=== PATIENT | male | born 1950 | race Caucasian/White ===

== ENCOUNTER 2017-03-12 15:00 | Emergency (ER) | payer OTHER ==
[~2017-03-12] VITALS: Ht 172.7 cm; Wt 62.0 kg
[2017-03-12 15:02] VITALS: BP 145/84; PULSE 98; RESP 18; TEMP 98.2; O2SAT 99
--- NOTE | 2017-03-12 15:54 | PD ---
Physical Exam Date Seen by Provider: March 12, 2017 Time Seen by Provider: 15:49 Narrative 66 Y/O male with progressively worsening Chest pain and difficulty swallowing as well as increased fatigue and exertional dyspnea. 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 + Shakes if not drinking. Patient having more difficulty swallowing with occasional food bolus regurgitation over the past several months. Increased heart burn and clear mucus production as well. 20 lb weight loss in the past 4 months according to . No fever or Chills. No Vomiting. V/S Stable Awaiting Bed Placement. Data Data Last Documented VS Vital Signs Date Time Temp Pulse Resp B/P Pulse Ox O2 Delivery O2 Flow Rate FiO2 03/12/17 15:02 98.2 98 18 145/84 99 MDM Medical Record Reviewed: Yes Supervised Visit with ISIAH: Yes Condition: Stable [place] March 12, 2017 15:54
[2017-03-12] MEDS ORDERED: SODIUM CHLORIDE 0.9% FLUSH 10 ML FLUSH IVF PRN (16:15)
--- NOTE | 2017-03-12 16:27 | RADRPT ---
EXAM DATE/TIME: 03/12/2017 16:10 [facility] COMPARISON: No previous studies available for comparison. INDICATIONS : Right anterior chest pain, denies injury MEDICAL HISTORY : Chronic obstructive pulmonary disease. SURGICAL HISTORY : None. ENCOUNTER: Initial ACUITY: 3 weeks PAIN SCORE: 6/10 LOCATION: chest FINDINGS: Frontal and lateral of the chest demonstrate a normal-sized cardiac silhouette. Lungs are hyperinflat ed. There are 2 nodules identified in the right lung measuring 10 mm in the right upper lung zone and 8 mm in the right lower lung zone. No effusion or pneumothorax identified. Bones and soft tissues de monstrate no acute finding. CONCLUSION: 2 right lung pulmonary nodules are identified measuring up to 10 mm. These do not appear calcified. S uggest chest CT for further evaluation if no prior imaging studies are available. Background lung rickey nges are suggestive of emphysema. Kvng Escobar MD on March 12, 2017 at 16:23 Board Certified Radiologist. This report was verified electronically.
--- NOTE | 2017-03-12 16:31 | PD ---
HPI Chief Complaint: Medical Clearance Time Seen by Provider: 15:59 Travel History International Travel<30 days: No Contact w/Intl Traveler<30days: No Traveled to known affect area: No History of Present Illness HPI Patient is a 66 year old male presents to the ER for evaluation of intermittent dysphagia, weight loss and epigastric pain particularly after eating. Patient states he has not had seen a doctor in many years and just got his insurance. He states that he has been having the above symptoms for several months but gradually getting worse decided to come in tonight. History of smoking and alcohol ingestion. No fevers. No SOB. Symptoms are moderate. PFSH Past Medical History COPD: Yes ?: Not Past Surgical History Appendectomy: Yes Social History Alcohol Use: Yes (10 beers daily) Tobacco Use: Yes (1 ppd) Substance Use: Yes (marijuana) Allergies-Medications (Allergen,Severity, Reaction): Coded Allergies: No Known Allergies (Unverified , 03/12/17) Reported Meds & Prescriptions Reported Meds & Active Scripts Active No Active Prescriptions or Reported Medications Review of Systems Except as stated in HPI: all other systems reviewed are Neg Physical Exam Narrative GENERAL: WD/WN but thin in NAD. SKIN: Warm and dry. HEAD: Atraumatic. Normocephalic. EYES: Pupils equal and round. No scleral icterus. No injection or drainage. ENT: No nasal bleeding or discharge. Mucous membranes pink and moist. NECK: Trachea midline. No JVD. No lymphadenopathy. CARDIOVASCULAR: Regular rate and rhythm. RESPIRATORY: No accessory muscle use. Clear to auscultation. Breath sounds equal bilaterally. GASTROINTESTINAL: Abdomen soft, non-tender, nondistended. Hepatic and splenic margins not palpable. MUSCULOSKELETAL: Extremities without clubbing, cyanosis, or edema. No obvious deformities. NEUROLOGICAL: Awake and alert. No obvious cranial nerve deficits. Motor grossly within normal limits. Five out of 5 muscle strength in the arms and legs. Normal speech. PSYCHIATRIC: Appropriate mood and affect; insight and judgment normal. Data Data Last Documented VS Vital Signs Date Time Temp Pulse Resp B/P Pulse Ox O2 Delivery O2 Flow Rate FiO2 03/12/17 15:02 98.2 98 18 145/84 99 Orders Electrocardiogram (03/12/17 16:05) Complete Blood Count With Diff (03/12/17 16:05) Comprehensive Metabolic Panel (03/12/17 16:05) Magnesium (Mg) (03/12/17 16:05) Prothrombin Time / Inr (Pt) (03/12/17 16:05) Act Partial Throm Time (Ptt) (03/12/17 16:05) Troponin I (03/12/17 16:05) Ecg Monitoring (03/12/17 16:05) Iv Access Insert/Monitor (03/12/17 16:05) Oximetry (03/12/17 16:05) Oxygen Administration (03/12/17 16:05) Sodium Chloride 0.9% Flush (Ns Flush) (03/12/17 16:15) Chest, Pa & Lat (03/12/17 ) Ct Thorax/ Chest W Iv Contrast (03/12/17 ) Oxycodone-Acetamin 10-325 Mg (Percocet 1 (03/12/17 18:00) Iohexol 350 Inj (Omnipaque 350 Inj) (03/12/17 19:16) Labs Laboratory Tests Test 03/12/17 16:09 White Blood Count 8.4 TH/MM3 Red Blood Count 3.93 MIL/MM3 Hemoglobin 13.6 GM/DL Hematocrit 39.7 % Mean Corpuscular Volume 101.1 FL Mean Corpuscular Hemoglobin 34.7 PG Mean Corpuscular Hemoglobin 34.3 % Concent Red Cell Distribution Width 13.0 % Platelet Count 151 TH/MM3 Mean Platelet Volume 8.3 FL Neutrophils (%) (Auto) 36.1 % Lymphocytes (%) (Auto) 51.1 % Monocytes (%) (Auto) 10.2 % Eosinophils (%) (Auto) 2.0 % Basophils (%) (Auto) 0.6 % Neutrophils # (Auto) 3.0 TH/MM3 Lymphocytes # (Auto) 4.3 TH/MM3 Monocytes # (Auto) 0.9 TH/MM3 Eosinophils # (Auto) 0.2 TH/MM3 Basophils # (Auto) 0.0 TH/MM3 CBC Comment AUTO DIFF Differential Comment AUTO DIFF CONFIRMED Platelet Estimate NORMAL Platelet Morphology Comment NORMAL Prothrombin Time 10.0 SEC Prothromb Time International 0.9 RATIO Ratio Activated Partial 27.1 SEC Thromboplast Time Sodium Level 139 MEQ/L Potassium Level 3.9 MEQ/L Chloride Level 102 MEQ/L Carbon Dioxide Level 24.8 MEQ/L Anion Gap 12 MEQ/L Blood Urea Nitrogen 5 MG/DL Creatinine 0.68 MG/DL Estimat Glomerular Filtration 117 ML/MIN Rate Random Glucose 87 MG/DL Calcium Level 9.3 MG/DL Magnesium Level 2.0 MG/DL Total Bilirubin 0.4 MG/DL Aspartate Amino Transf 65 U/L (AST/SGOT) Alanine Aminotransferase 43 U/L (ALT/SGPT) Alkaline Phosphatase 82 U/L Troponin I LESS THAN 0.02 NG/ML Total Protein 7.3 GM/DL Albumin 3.5 GM/DL MDM Medical Decision Making Medical Screen Exam Complete: Yes Emergency Medical Condition: Yes Differential Diagnosis CA, lung CA, Esophageal CA, hiatal hernia, dysphagia. Narrative Course Patient roomed in ED, high risk for CA. discussed with patient the CXR results showing multiple nodules. He understands that CA is high on the differential diagnosis. He states he is able to tolerate small amounts of PO. CT examination pursued to expediate referrals. Patient has stated from early in encounter that he didn't want to stay in hospital. I discussed with him that this can expediate workup but ultimately he needs endoscopy. He verbalized understanding. I revisited him at the end of my shift and discussed CT scan not read out yet but i do see multiple lung nodules and some abnormality of distal esophagus which may be hernia but still needs endoscopy. He states he would like to leave and follow up outpatient. CT scan resulted shortly after departure and he was given multiple referrals. Last 24 hours Impressions Chest X-Ray 03/12/17 0000 Signed Impressions: Service Date/Time: Sunday, March 12, 2017 16:10 - CONCLUSION: 2 right lung pulmonary nodules are identified measuring up to 10 mm. These do not appear calcified. Suggest chest CT for further evaluation if no prior imaging studies are available. Background lung changes are suggestive of emphysema. Kvng Escobar MD Chest CT 03/12/17 0000 Signed Impressions: Service Date/Time: Sunday, March 12, 2017 19:11 - CONCLUSION: 1. Abnormal mural thickening of the midesophagus most characteristic of an esophageal carcinoma with adjacent subcarinal presumed renetta metastasis and lung metastases. See above discussion. Usama Burton MD Diagnosis Primary Impression: Dysphagia Qualified Code: R13.10 - Dysphagia, unspecified type Additional Impressions: Weight loss Pulmonary nodule Referrals: J Carlos Sandhu MD, Saud El-sayed MD [place],Sarah Edmondson MD Scripts No Active Prescriptions or Reported Meds Disposition: 01 DISCHARGE HOME Condition: Stable Sam Neves MD March 12, 2017 16:31
[2017-03-12 16:43] LABS: BASOPHIL % 0.6 % (0.0-2.0); EOSINOPHIL # 0.2 TH/MM3 (0-0.4); HEMATOCRIT 39.7 % (39.0-51.0); LYMPH % 51.1 % (9.0-44.0); LYMPHOCYTE # 4.3 TH/MM3 (1.0-4.8); MEAN CELL VOLUME 101.1 FL (80.0-100.0); MEAN CORPUSCULAR HEMOGLOBIN 34.7 PG (27.0-34.0); MEAN CORPUSCULAR HGB CONC 34.3 % (32.0-36.0); MONO % 10.2 % (0.0-8.0); NEUT % 36.1 % (16.0-70.0); PLATELET COUNT 151 TH/MM3 (150-450); RED BLOOD COUNT 3.93 MIL/MM3 (4.50-5.90); WHITE BLOOD COUNT 8.4 TH/MM3 (4.0-11.0)
[2017-03-12 16:48] LABS: APTT (PATIENT) 27.1 SEC (24.3-30.1); INTERNATIONAL NORMALIZED RATIO 0.9 RATIO
[2017-03-12 16:58] LABS: HEMO FLAGS AUTO DIFF
[2017-03-12 17:01] LABS: ALT (GPT) 43 U/L (12-78); ANION GAP 12 MEQ/L (5-15); AST (GOT) 65 U/L (15-37); BICARBONATE 24.8 MEQ/L (21.0-32.0); BLOOD UREA NITROGEN 5 MG/DL (7-18); CHLORIDE 102 MEQ/L (98-107); GLOMERULAR FILTRATION RATE 117 ML/MIN (>89); POTASSIUM 3.9 MEQ/L (3.5-5.1); SODIUM (NA) 139 MEQ/L (136-145)
[2017-03-12 17:05] LABS: ALKALINE PHOSPHATASE 82 U/L (45-117); TOTAL BILIRUBIN ADULT 0.4 MG/DL (0.2-1.0)
[2017-03-12 17:41] LABS: PLATELET ESTIMATE SMEAR NORMAL (NORMAL); PLATELET MORPHOLOGY NORMAL (NORMAL); SCAN/DIFF AUTO DIFF CONFIRMED
[2017-03-12] MEDS ORDERED: oxyCODONE/ACETAMINOPHEN 10 MG/325 MG TAB PO ONE (18:00)
[2017-03-12] MEDS ORDERED: IOHEXOL 350 MG/ML 10 ML VIAL (for RAD DIAG) IV ONE (19:16)
--- NOTE | 2017-03-12 19:55 | RADRPT ---
EXAM DATE/TIME: 03/12/2017 19:11 [facility] COMPARISON: No previous studies available for comparison. INDICATIONS : Difficulty swallowing. Right anterior chest. Possible mass. IV CONTRAST: 70 cc Omnipaque 350 (iohexol) IV RADIATION DOSE: 3.56 CTDIvol (mGy) MEDICAL HISTORY : Chronic obstructive pulmonary disease. SURGICAL HISTORY : Appendectomy. ENCOUNTER: Initial ACUITY: 4 - 6 months PAIN SCALE: 3/10 LOCATION: Right chest TECHNIQUE: Volumetric scanning of the chest was performed. Using automated exposure control and adjustment of t he mA and/or kV according to patient size, radiation dose was kept as low as reasonably achievable to obtain optimal diagnostic quality images. FINDINGS: There is abnormal mural thickening of the mid esophagus to a diameter by 2.8 cm with an adjacent enla rged 2.2 cm subcarinal lymph node. Findings are most characteristic of an esophageal malignancy. There are multiple nodules in the lungs including a 4 mm nodule at the left lung apex. There is a 1 c m nodule in the right upper lobe a 1.2 cm nodule in the peripheral right lower lobe and 2 nodules in the left lower lobe measuring up to 1.6 cm and 1.4 cm most characteristic of metastatic disease. No pleural or pericardial effusion. Moderate coronary calcifications. No acute findings in the upper abdomen. CONCLUSION: 1. Abnormal mural thickening of the midesophagus most characteristic of an esophageal carcinoma with adjacent subcarinal presumed renetta metastasis and lung metastases. See above discussion. Usama Burton MD on March 12, 2017 at 19:48 Board Certified Radiologist. This report was verified electronically.
--- NOTE | 2017-03-13 14:49 | EKG ---
Date Performed: 03/12/2017 Time Performed: 16:47:03 PTAGE: 66 years EKG: Sinus rhythm MARKED LEFT AXIS DEVIATION ABNORMAL ECG NO PREVIOUS TRACING DOCTOR: Rob Cm Interpretating Date/Time 03/13/2017 14:48:21
[2017-03-14] MEDS ORDERED: PERC10TA27 PO (09:50)
[2017-03-14] MEDS ORDERED: PANT40TA3 PO (09:51)
[2017-03-21] MEDS ORDERED: PROT40TA PO (09:20)
[2017-03-21] MEDS ORDERED: MULT-65 PO (09:21)
== END 2017-03-12 19:56 | disposition home or self-care (01) ==
LOC: NEPE 15:00
DX: R13.10 Dysphagia, unspecified (principal); R63.4 Abnormal weight loss; R91.8 Other nonspecific abnormal finding of lung field; R94.31 Abnormal electrocardiogram [ECG] [EKG]; R10.13 Epigastric pain; F17.200 Nicotine dependence, unspecified, uncomplicated; Z87.09 Personal history of other diseases of the respiratory system
CPT/HCPCS: 71020; 71260; 80053; 83735; 84484; 85025; 85610; 85730; 93005; 99285; Q9967

== ENCOUNTER 2017-04-11 08:03 | Day surgery (SDC) | payer OTHER ==
[2017-04-11] VITALS (8 sets, daily range): BP systolic 118–137; BP diastolic 50–81; PULSE 68–96; RESP 18–20; TEMP 98.2–98.6; O2SAT 94–98
[~2017-04-11] VITALS: Ht 172.7 cm; Wt 60.5 kg
[~2017-04-11 08:03] MED LIST: MULT-65 PO; PERC10TA27 PO; PROT40TA PO
[2017-04-11] MEDS ORDERED: METH5TAB PO (08:19)
[2017-04-11] MEDS ORDERED: HYDR1SOL3 PO (08:20)
[2017-04-11] MEDS ORDERED: MULT-65 PO (08:21)
[2017-04-11] MEDS ORDERED: LIDOCAINE 1%/EPINEPHrine 1:100,000 SOLN 20 ML VIAL ONE (08:47)
[2017-04-11 08:50] LABS: AUTOMATED NEUTROPHIL # 5.4 TH/MM3 (1.8-7.7); BASOPHIL # 0.1 TH/MM3 (0-0.2); BASOPHIL % 0.6 % (0.0-2.0); EOSINOPHIL # 0.3 TH/MM3 (0-0.4); EOSINOPHIL % 3.4 % (0.0-4.0); HEMATOCRIT 40.2 % (39.0-51.0); HEMO FLAGS DIFF FINAL; LYMPH % 30.1 % (9.0-44.0); LYMPHOCYTE # 2.9 TH/MM3 (1.0-4.8); MEAN CORPUSCULAR HEMOGLOBIN 34.8 PG (27.0-34.0); MEAN CORPUSCULAR HGB CONC 34.5 % (32.0-36.0); MONO % 9.6 % (0.0-8.0); NEUT % 56.3 % (16.0-70.0); PLATELET COUNT 202 TH/MM3 (150-450); RED BLOOD COUNT 3.98 MIL/MM3 (4.50-5.90); WHITE BLOOD COUNT 9.5 TH/MM3 (4.0-11.0)
[2017-04-11 08:55] LABS: APTT (PATIENT) 27.7 SEC (24.3-30.1); INTERNATIONAL NORMALIZED RATIO 0.9 RATIO; PROTHROMBIN TIME - PATIENT 10.2 SEC (9.8-11.6)
[2017-04-11] MEDS ORDERED: fentaNYL CITRATE 250 MCG/5 ML AMP ONE (09:34)
[2017-04-11] MEDS ORDERED: MIDAZOLAM HCL 5 MG/5 ML VIAL ONE (09:34)
[2017-04-11] MEDS ORDERED: SODIUM CHLOR 0.9% 1000 ML IV SCH (10:00)
[2017-04-11] MEDS ORDERED: oxyCODONE/ACETAMINOPHEN 5 MG/325 MG TAB PO PRN (10:15)
--- NOTE | 2017-04-11 11:39 | RADRPT ---
EXAM DATE/TIME: 04/11/2017 09:48 [facility] COMPARISON: No previous studies available for comparison. INDICATIONS : Lung masses. SEDATION TIME: 15 minutes BIOPSY SITE: Left lung MEDICATION(S): 1.) 3 mg midazolam (Versed) IV 2.) 150 mcg fentanyl (Sublimaze) IV DEVICE(S): 1.) 20 gauge Temno core biopsy needle 6cm MEDICAL HISTORY : Carcinoma, esophageal. Hypertension. Smoker SURGICAL HISTORY : Appendectomy. ENCOUNTER: Initial ACUITY: 1 day PAIN SCORE: 0/10 LOCATION: Left chest A total of one core specimen(s) were obtained and sent to the laboratory for pathologic evaluation. PROCEDURE: 1. CT guided lung biopsy. 2. Conscious sedation with continuous EKG and oximetry monitoring. Prior to the procedure informed consent was obtained. Any appropriate prior imaging studies were rev iewed. Using automated exposure control and adjustment of the mA and/or kV according to patient size, radiation dose was kept as low as reasonably achievable to obtain optimal diagnostic quality images. The site was prepped in a sterile fashion. Full sterile technique was used, including cap, mask, jere rile gloves and gown and a large sterile sheet. Hand hygiene and 2% chlorhexidine and/or betadine/al cohol prep was utilized per protocol for cutaneous antisepsis. The skin and subcutaneous tissues wer e infiltrated with local anesthetic solution. With CT guidance the previously identified target was localized. Biopsy was performed using the presc ribed needle as above. Adequate hemostasis was obtained with compression at the puncture site. Follow-up CT scan reveals no pneumothorax. Conscious sedation was performed with the prescribed dosages and duration as above in the presence of an independent trained radiology nurse to assist in the monitoring of the patient. EKG and oximetry remained stable throughout the procedure. The patient tolerated the procedure well and there were no complications. The patient was sent to Radiology Outpatient Unit in stable condition. CONCLUSION: Uncomplicated CT guided biopsy. Pathology is pending. Nino Alamo MD FACR on April 11, 2017 at 11:36 Board Certified Radiologist. This report was verified electronically.
--- NOTE | 2017-04-11 12:42 | RADRPT ---
EXAM DATE/TIME: 04/11/2017 12:03 [facility] COMPARISON: CHEST PA & LAT, March 12, 2017, 16:10. INDICATIONS : Post left lung biopsy. Pneumothorax. MEDICAL HISTORY : Carcinoma, esophageal. Hypertension smoker SURGICAL HISTORY : None. ENCOUNTER: Subsequent ACUITY: 1 day PAIN SCORE: 3/10 LOCATION: Bilateral chest FINDINGS: There are multiple pulmonary nodules consistent with metastatic disease. No pneumothorax is evident f ollowing CT guided biopsy. The heart is normal in size. CONCLUSION: 1. No pneumothorax seen following left lung biopsy. 2. Multiple pulmonary nodules suggesting metastatic disease. Cyrus Alamo MD on April 11, 2017 at 12:38 Board Certified Radiologist. This report was verified electronically.
== END 2017-04-11 14:30 | disposition home or self-care (01) ==
LOC: HRAD 08:03 → HRIP 08:06 → HRAD 14:30
PROVIDERS: ATTEND Internal Medicine Hematology & Oncology
DX: C34.92 Malignant neoplasm of unspecified part of left bronchus or lung (principal); C15.9 Malignant neoplasm of esophagus, unspecified; I10 Essential (primary) hypertension; F17.200 Nicotine dependence, unspecified, uncomplicated
CPT/HCPCS: 32405; 71010; 77012; 85025; 85610; 85730; 88305; 88333; 88341; 88342; J2250; J3010; J7030

== ENCOUNTER → 2017-05-10 | Day surgery (SDC) | payer OTHER ==
[~2017-05-10] MED LIST changes: +BUPIVACAINE/EPINEPHRINE 0.5% PF 10 ML VIAL ONE; +HYDR1SOL3 PO; +LACTATED RINGER'S 1000 ML INJ 1,000 ML ONE; +METH5TAB PO; +MIDAZOLAM HCL 2 MG/2 ML VIAL ONE; -PERC10TA27 PO; +PROPOFOL 200 MG/20 ML AMP IV ONE; +SODIUM CHLORIDE 0.9% INJ 10 ML ONE; +ceFAZolin 2 GM PREMIX 50 ML ONE
--- NOTE | 2017-05-10 08:40 | TN ---
cc: MARIPOSA CERNA M.D. DATE OF SURGERY 05/10/2017 PREOPERATIVE DIAGNOSIS Metastatic esophageal cancer. POSTOPERATIVE DIAGNOSIS Metastatic esophageal cancer. PROCEDURE PERFORMED 1. Attempt at left subclavian [id number]. 2. Left internal jugular [id number] with intraoperative fluoroscopy. SURGEON Mariposa Cerna MD ANESTHESIA TIVA with local. COMPLICATIONS None. INDICATION FOR PROCEDURE Mr. Paul is a very pleasant 66-year-old gentleman who unfortunately has metastatic esophageal cancer. He was advised to undergo chemotherapy. He was referred for port placement. Risks and benefits of Thahrd-P-[id number] placement was discussed with him and his and they are agreeable. DETAILS The patient was identified, brought to the operating room, placed supine on the operating table. After adequate IV sedation was achieved, the anterior chest and neck was prepped and draped in standard surgical fashion. 0.25% Marcaine with epinephrine was injected in the skin and subcutaneous tissue around the left clavicle. Attempts were made to access the left subclavian vein. It should be noted the patient had a very prominent left subclavian artery which was easily visualized and palpated under his clavicle due to his weight loss. I tried to go above and below the artery but was unsuccessful. After sticking the artery three successive times, I elected to abandon the subclavian vein approach. Attention was directed to the internal jugular. Landmarks were identified and the 25-gauge local needle was used to locate the approximate location of the jugular vein. Once this was accomplished the 18-gauge needle was then used to follow the smaller needle and the jugular vein was hit on the first attempt. A guidewire was inserted and followed with direct fluoroscopy down to the level of the superior vena cava. Once positioning was confirmed, a subcutaneous pocket was fashion in the left anterior chest using sharp dissection in the infraclavicular space. Next, the dilator was placed over the guidewire and followed under direct fluoroscopy down into the level of superior vena cava. The guidewire was then removed the catheter was advanced. The catheter was advanced the level of the right atrium. Next, the catheter was tunneled down to the subclavian port to the subclavian pocket site using the tunneling device. The catheter was then withdrawn and it was positioned into the junction of the right atrium and the superior vena cava. The port was then attached to the catheter with a locking device. The port was tested and found have excellent blood return, easy ability to flush. The port was placed into the subcutaneous pocket and secured with a 2-0 Prolene suture. The pocket was then filled with additional local anesthetic. The skin was then closed with 4-0 Vicryl. Steri-Strips were used to close the puncture site in the neck. The patient tolerated procedure well without any apparent complication. Sterile dressings were applied and the patient was brought to Recovery in stable condition. Chest x-ray will be obtained in Recovery. Mariposa MD DALIA Cerna/GRACIE /8:24 AM /8:32 AM
== END | disposition home or self-care (01) ==
LOC: ESDC 06:47
PROVIDERS: ATTEND Surgery Trauma Surgery
DX: Z45.2 Encounter for adjustment and management of vascular access device (principal); C78.89 Secondary malignant neoplasm of other digestive organs
CPT/HCPCS: 00532; 36561; 76000; C1788; J0690; J1642; J2250; J3010; J7120

== ENCOUNTER 2017-09-17 17:08 | Inpatient (IN) | payer OTHER, MEDICAID ==
[~2017-09-17] VITALS: Ht 172.7 cm; Wt 56.2 kg
[~2017-09-17 17:08] MED LIST changes: -BUPIVACAINE/EPINEPHRINE 0.5% PF 10 ML VIAL ONE; -LACTATED RINGER'S 1000 ML INJ 1,000 ML ONE; -MIDAZOLAM HCL 2 MG/2 ML VIAL ONE; -PROPOFOL 200 MG/20 ML AMP IV ONE; -SODIUM CHLORIDE 0.9% INJ 10 ML ONE; -ceFAZolin 2 GM PREMIX 50 ML ONE
[2017-09-17] MEDS ORDERED: IOHEXOL 350 MG/ML 10 ML VIAL (for RAD DIAG) IVCONTRAST ONE (17:09)
[2017-09-17 17:10] VITALS: BP 204/104; PULSE 80; RESP 12; TEMP 98.3; O2SAT 96
[2017-09-17] MEDS ORDERED: ZOFR4TAB PO (18:07)
--- NOTE | 2017-09-17 18:07 | PD ---
HPI Chief Complaint: GI Complaint Time Seen by Provider: 18:04 Travel History International Travel<30 days: No Contact w/Intl Traveler<30days: No Traveled to known affect area: No History of Present Illness HPI 66 YO M with PMH of COPD, stage IV esophageal cancer presents to the ED for evaluation of 3 hour history of left lower quadrant abdominal pain and sheila blood in a single loose bowel movement. Onset gradual, described as cramping, rated 10/10. Patient endorses intermittent nausea, worsened by certain movements. He denies fever or chills. He states last bowel movement before today was 3 days ago, normal, nonbloody. He endorses weakness. He hasn't had upper or lower GI " in many years." He is followed by Dr. Corona. Last visit 6 days ago. Last dose of Ramucirumab 6 days ago. PFSH Past Medical History Cancer: Yes (ESOPHAGEAL/LUNG) Cardiovascular Problems: No COPD: Yes Diabetes: No Endocrine: No Genitourinary: No Hepatitis: No Hiatal Hernia: No Immune Disorder: No Musculoskeletal: No Neurologic: No Psychiatric: No Reproductive: No Respiratory: Yes (COPD) Thyroid Disease: No Past Surgical History Abdominal Surgery: Yes (APPY) AICD: No Appendectomy: Yes Cardiac Surgery: No Ear Surgery: No Endocrine Surgery: No Eye Surgery: No Genitourinary Surgery: No Gynecologic Surgery: No Joint Replacement: No Oral Surgery: Yes (CYST SINUS,TONSILS) Pacemaker: No Thoracic Surgery: No Social History Alcohol Use: Yes (10 beers daily) Tobacco Use: Yes (1 ppd) Substance Use: Yes (marijuana) Allergies-Medications (Allergen,Severity, Reaction): Coded Allergies: No Known Allergies (Unverified Allergy, Unknown, 09/17/17) Reported Meds & Prescriptions Reported Meds & Active Scripts Active Hydrocodone-Acetaminophen Liq 7.5-325 Mg/15 Ml Soln 10 Ml PO Q6H PRN Methadone (Methadone HCl) 5 Mg Tab 5 Mg PO DAILY Reported Zofran (Ondansetron HCl) 4 Mg Tab 4 Mg PO Q8HR PRN Multi-Vitamin Daily (Multiple Vitamin) 1 Tab Tab 1 Tab PO DAILY Protonix (Pantoprazole Sodium) 40 Mg Tab 40 Mg PO DAILY Review of Systems Except as stated in HPI: all other systems reviewed are Neg Physical Exam Narrative GENERAL: Cachectic, chronically ill-appearing white male in no acute distress. SKIN: Focused skin assessment warm/dry. HEAD: Normocephalic. EYES: No scleral icterus. No injection or drainage. NECK: Supple, trachea midline. No JVD or lymphadenopathy. CARDIOVASCULAR: Regular rate and rhythm without murmurs, gallops, or rubs. RESPIRATORY: Breath sounds clear and equal bilaterally. No accessory muscle use. GASTROINTESTINAL: Abdomen soft, nondistended. Tender to palpation in the left lower quadrant. No palpable masses. Hypoactive bowel sounds. MUSCULOSKELETAL: No cyanosis, or edema. BACK: Nontender without obvious deformity. No CVA tenderness. Data Data Last Documented VS Vital Signs Date Time Temp Pulse Resp B/P (MAP) Pulse Ox O2 Delivery O2 Flow Rate FiO2 09/17/17 23:24 74 20 176/88 (117) 98 Room Air 09/17/17 17:10 98.3 Orders Orders Complete Blood Count With Diff (09/17/17 18:22) Comprehensive Metabolic Panel (09/17/17 18:22) Lactic Acid (09/17/17 18:22) Prothrombin Time / Inr (Pt) (09/17/17 18:22) Act Partial Throm Time (Ptt) (09/17/17 18:22) Urinalysis - C+S If Indicated (09/17/17 18:22) Ct Abd/Pel W Iv Contrast(Rout) (09/17/17 18:22) Iv Access Insert/Monitor (09/17/17 18:22) Ecg Monitoring (09/17/17 18:22) Oximetry (09/17/17 18:22) Morphine Inj (Morphine Inj) (09/17/17 18:30) Ondansetron Inj (Zofran Inj) (09/17/17 18:30) Sodium Chlor 0.9% 1000 Ml Inj (Ns 1000 M (09/17/17 18:22) Sodium Chloride 0.9% Flush (Ns Flush) (09/17/17 18:30) Electrocardiogram (09/17/17 18:22) Pantoprazole Inj (Protonix Inj) (09/17/17 18:30) Hydromorphone Pf Inj (Dilaudid Pf Inj) (09/17/17 20:00) Iohexol 350 Inj (Omnipaque 350 Inj) (09/17/17 17:09) Hydromorphone Pf Inj (Dilaudid Pf Inj) (09/17/17 22:45) Promethazine Liq (Phenergan Liq) (09/17/17 22:45) Admit Order (Ed Use Only) (09/17/17 23:31) Labs Laboratory Tests Test 09/17/17 18:40 09/17/17 20:10 White Blood Count 10.5 TH/MM3 Red Blood Count 3.64 MIL/MM3 Hemoglobin 14.1 GM/DL Hematocrit 40.1 % Mean Corpuscular Volume 110.1 FL Mean Corpuscular Hemoglobin 38.6 PG Mean Corpuscular Hemoglobin Concent 35.1 % Red Cell Distribution Width 12.4 % Platelet Count 145 TH/MM3 Mean Platelet Volume 7.3 FL Neutrophils (%) (Auto) 87.1 % Lymphocytes (%) (Auto) 4.4 % Monocytes (%) (Auto) 8.3 % Eosinophils (%) (Auto) 0.0 % Basophils (%) (Auto) 0.2 % Neutrophils # (Auto) 9.1 TH/MM3 Lymphocytes # (Auto) 0.5 TH/MM3 Monocytes # (Auto) 0.9 TH/MM3 Eosinophils # (Auto) 0.0 TH/MM3 Basophils # (Auto) 0.0 TH/MM3 CBC Comment DIFF FINAL Differential Comment Prothrombin Time 10.6 SEC Prothromb Time International Ratio 1.0 RATIO Activated Partial Thromboplast Time 52.4 SEC Blood Urea Nitrogen 14 MG/DL Creatinine 0.75 MG/DL Random Glucose 117 MG/DL Total Protein 7.3 GM/DL Albumin 3.6 GM/DL Calcium Level 9.0 MG/DL Alkaline Phosphatase 91 U/L Aspartate Amino Transf (AST/SGOT) 138 U/L Alanine Aminotransferase (ALT/SGPT) 69 U/L Total Bilirubin 0.7 MG/DL Sodium Level 132 MEQ/L Potassium Level 3.9 MEQ/L Chloride Level 95 MEQ/L Carbon Dioxide Level 27.9 MEQ/L Anion Gap 9 MEQ/L Estimat Glomerular Filtration Rate 105 ML/MIN Lactic Acid Level 1.9 mmol/L Urine Color YELLOW Urine Turbidity CLEAR Urine pH 8.0 Urine Specific [place] 1.024 Urine Protein TRACE mg/dL Urine Glucose (UA) NEG mg/dL Urine Ketones 40 mg/dL Urine Occult Blood NEG Urine Nitrite NEG Urine Bilirubin NEG Urine Urobilinogen 4.0 MG/DL Urine Leukocyte Esterase NEG Urine RBC 1 /hpf Urine WBC 3 /hpf Urine Squamous Epithelial Cells <1 /hpf Urine Mucus FEW /lpf Microscopic Urinalysis Comment CULT NOT INDICATED MDM Medical Decision Making Medical Screen Exam Complete: Yes Emergency Medical Condition: Yes Differential Diagnosis GI bleed versus anemia versus diverticulitis versus colitis versus bowel obstruction versus metastatic cancer versus other Narrative Course 66 YO M with PMH of COPD, stage IV esophageal cancer presents to the ED for evaluation of 3 hour history of left lower quadrant abdominal pain and sheila blood in a single loose bowel movement. Onset gradual, described as cramping, rated 10/10. Patient endorses intermittent nausea, worsened by certain movements. He denies fever or chills. He states last bowel movement before today was 3 days ago, normal, nonbloody. He endorses weakness. He hasn't had upper or lower GI " in many years." He is followed by Dr. Corona. Last visit 6 days ago. Last dose of Ramucirumab 6 days ago. Vitals reviewed. Patient's hypertensive on presentation. Physical exam reveals a cachectic, chronically ill-appearing white male in no acute distress. He is tender to palpation in the left lower quadrant with hypoactive bowel sounds. Guaiac positive on rectal exam. Exam otherwise unremarkable. IV was established. Patient was administered 1 L normal saline, 4 mg morphine, 4 mg Zofran, 40 mg Protonix IV. CBC: WBC 10.5. Hemoglobin 14.1. INR 1.0. CMP: Sodium 132, chloride 95. BUN 14, creatinine 0.75 Lactic acid 1.9. UA: No culture indicated CT abdomen and pelvis: 1. Diffuse thickening of the descending colon with pericolonic inflammatory changes and fluid characteristic of a nonspecific colitis. 2. However, in concern there may be a nonostial stenosis of the SMA and there is dense calcification of the distal aorta in the region of the LLOYD with marked narrowing of the aortic and left iliac luminal diameter. The combination could limit flow to the LLOYD distribution and explain current radiographic findings. I would recommend a CTA of the abdominal vasculature sometime tomorrow (patient received contrast for the current exam) for further evaluation of the regional vasculature. 3. Mass lesions in the lung bases are smaller when compared to the prior exam characteristic of a favorable response to therapy. 4. However, there is a new 1.3 cm hypodense lesion in the left hepatic lobe concerning for a metastatic deposit. 5. Stable hydropic configuration of the gallbladder with distention of the CBD measuring 1.1 cm at the pancreatic head. Patient still complaining of pain, was administered 0.5 mg Dilaudid. I discussed the results of the workup with the patient and his . They're agreeable to admission for evaluation of colitis versus ischemic colitis and GI bleeding. Patient's pain still rated 8/10. An additional 0.2 mg of Dilaudid and oral Phenergan was administered. I discussed the patient with Dr. Weston. He spoke with Dr. Mcgrath who agrees to accept the patient to the medicine service. See medicine notes for disposition. [facility]Prompt Point of Care Internal Pos. & Neg. Controls: Passed Fecal Specimen Occult Blood: Positive Ansley Nguyen Sep 17, 2017 18:07
[2017-09-17] MEDS ORDERED: SODIUM CHLOR 0.9% 1000 ML INJ 1,000 ML IV SCH (18:22)
[2017-09-17] MEDS ORDERED: SODIUM CHLORIDE 0.9% FLUSH 10 ML FLUSH IV FLUSH PRN (18:30)
[2017-09-17] MEDS ORDERED: MORPHINE SULFATE 4 MG/ML INJ IV PUSH ONE (18:30)
[2017-09-17] MEDS ORDERED: ONDANSETRON HCL 4 MG/2 ML VIAL IVP ONE (18:30)
[2017-09-17] MEDS ORDERED: PANTOPRAZOLE SODIUM 40 MG VIAL IV PUSH ONE (18:30)
[2017-09-17 18:54] VITALS: O2SAT 99
[2017-09-17 18:56] VITALS: BP 194/92; PULSE 68; RESP 18; O2SAT 99
[2017-09-17 19:19] LABS: AUTOMATED NEUTROPHIL # 9.1 TH/MM3 (1.8-7.7); BASOPHIL % 0.2 % (0.0-2.0); HEMATOCRIT 40.1 % (39.0-51.0); HEMO FLAGS DIFF FINAL; LYMPH % 4.4 % (9.0-44.0); LYMPHOCYTE # 0.5 TH/MM3 (1.0-4.8); MEAN CELL VOLUME 110.1 FL (80.0-100.0); MEAN CORPUSCULAR HEMOGLOBIN 38.6 PG (27.0-34.0); MEAN CORPUSCULAR HGB CONC 35.1 % (32.0-36.0); MONO % 8.3 % (0.0-8.0); NEUT % 87.1 % (16.0-70.0); PLATELET COUNT 145 TH/MM3 (150-450); RED BLOOD COUNT 3.64 MIL/MM3 (4.50-5.90); RED CELL DISTRIBUTION WIDTH 12.4 % (11.6-17.2); WHITE BLOOD COUNT 10.5 TH/MM3 (4.0-11.0)
[2017-09-17 19:27] LABS: APTT (PATIENT) 52.4 SEC (24.3-30.1); PROTHROMBIN TIME - PATIENT 10.6 SEC (9.8-11.6)
[2017-09-17 19:47] LABS: ANION GAP 9 MEQ/L (5-15); AST (GOT) 138 U/L (15-37); BICARBONATE 27.9 MEQ/L (21.0-32.0); BLOOD UREA NITROGEN 14 MG/DL (7-18); CHLORIDE 95 MEQ/L (98-107); GLOMERULAR FILTRATION RATE 105 ML/MIN (>89); POTASSIUM 3.9 MEQ/L (3.5-5.1); SODIUM (NA) 132 MEQ/L (136-145)
[2017-09-17 19:48] LABS: ALT (GPT) 69 U/L (12-78)
[2017-09-17 19:50] VITALS: BP 169/90; PULSE 81; RESP 24; O2SAT 100
[2017-09-17 19:51] LABS: ALKALINE PHOSPHATASE 91 U/L (45-117); TOTAL BILIRUBIN ADULT 0.7 MG/DL (0.2-1.0)
[2017-09-17] MEDS ORDERED: HYDROmorphone HCL PF 0.5 MG/0.5 ML SYRINGE IV PUSH ONE ×2 (20:00→22:45)
[2017-09-17 20:54] LABS: BLOOD, URINE NEG (NEG); COMMENT (UR) CULT NOT INDICATED; CULTURE IF INDICATED CULT NOT INDICATED; GLUCOSE,URINE NEG (NEG); KETONE, URINE 40 mg/dL (NEG); MUCUS URINE FEW /lpf (OCC); NITRITE,URINE NEG (NEG); SQUAMOUS EPITHELIAL CELL URINE <1 /hpf (0-5); URINE COLOR YELLOW (YELLW/STRAW)
[2017-09-17 21:12] VITALS: BP 172/90; PULSE 73; RESP 20; O2SAT 98
--- NOTE | 2017-09-17 22:07 | RADRPT ---
EXAM DATE/TIME: 09/17/2017 20:38 [facility] COMPARISON: CT ABDOMEN & PELVIS W CONTRAST, April 03, 2017, 14:39. INDICATIONS : Abdomen pain. History of lung and espohageal cancer. IV CONTRAST: 100 cc Omnipaque 350 (iohexol) IV ORAL CONTRAST: No oral contrast ingested. RADIATION DOSE: 4.72 CTDIvol (mGy) MEDICAL HISTORY : Chronic obstructive pulmonary disease. Carcinoma, esophageal. Carcinoma, lung. SURGICAL HISTORY : Appendectomy. ENCOUNTER: Initial ACUITY: 1 day PAIN SCALE: 7/10 LOCATION: Bilateral abdomen TECHNIQUE: Volumetric scanning of the abdomen and pelvis was performed. Using automated exposure control and ad justment of the mA and/or kV according to patient size, radiation dose was kept as low as reasonably achievable to obtain optimal diagnostic quality images. DICOM format image data is available electro nically for review and comparison. FINDINGS: LOWER LUNGS: Nodular densities laterally in the right base are actually much smaller when compared to the prior. L papo bases are otherwise clearq LIVER: Interval development of a small, 1.3 cm hypodense lesion in the left hepatic lobe. This appears to be isolated. Gallbladder remains hydropic with significant distention. CBD remains prominent measuring 1.1 cm at the pancreatic head. SPLEEN: Normal size without lesion. PANCREAS: Within normal limits. KIDNEYS: Normal in size and shape. There is no mass, stone or hydronephrosis. ADRENAL GLANDS: Within normal limits. VASCULAR: Severe atherosclerotic calcification of the abdominal aorta with marked luminal narrowing just above the bifurcation. In addition, there appears to be a non-ostial high-grade stenosis of the SMA. The de nse calcification in the distal aorta may limit flow to the LLOYD as well BOWEL/MESENTERY: Diffuse thickening of the descending colon with pericolonic stranding and fluid characteristic of a n onspecific colitis. This is in the distribution of the LLOYD and there does appear to be some narrowing of the mesenteric vessels.. ABDOMINAL WALL: Within normal limits. RETROPERITONEUM: There is no lymphadenopathy. BLADDER: No wall thickening or mass. REPRODUCTIVE: Within normal limits. INGUINAL: There is no lymphadenopathy or hernia. MUSCULOSKELETAL: Within normal limits for patient age. CONCLUSION: 1. Diffuse thickening of the descending colon with pericolonic inflammatory changes and fluid charact eristic of a nonspecific colitis. 2. However, in concern there may be a nonostial stenosis of the SMA and there is dense calcification of the distal aorta in the region of the LLOYD with marked narrowing of the aortic and left iliac lumin al diameter. The combination could limit flow to the LLOYD distribution and explain current radiographi c findings. I would recommend a CTA of the abdominal vasculature sometime tomorrow (patient received contrast for the current exam) for further evaluation of the regional vasculature. 3. Mass lesions in the lung bases are smaller when compared to the prior exam characteristic of a fav orable response to therapy. 4. However, there is a new 1.3 cm hypodense lesion in the left hepatic lobe concerning for a metastat ic deposit. 5. Stable hydropic configuration of the gallbladder with distention of the CBD measuring 1.1 cm at th e pancreatic head. Vicente Paula MD on September 17, 2017 at 21:52 Board Certified Radiologist. This report was verified electronically.
[2017-09-17] MEDS ORDERED: PROMETHAZINE HCL SYRUP 6.25 MG/5 ML CUP PO ONE (22:45)
[2017-09-17 23:24] VITALS: BP 176/88; PULSE 74; RESP 20; O2SAT 98
[2017-09-18] VITALS (8 sets, daily range): BP systolic 104–170; BP diastolic 64–93; PULSE 67–100; RESP 17–20; TEMP 97.3–98.7; O2SAT 96–99
[2017-09-18] MEDS ORDERED: NALOXONE HCL 0.4 MG/ML AMP IV PUSH PRN
[2017-09-18] MEDS ORDERED: SODIUM CHLORIDE 0.9% FLUSH 10 ML FLUSH IV FLUSH PRN
[2017-09-18] MEDS ORDERED: ONDANSETRON HCL 4 MG/2 ML VIAL IVP PRN
[2017-09-18] MEDS: HYDROmorphone HCL PF 1 MG/ML VIAL IV PUSH PRN ×5 (01:39→21:35)
[2017-09-18] MEDS ORDERED: FLUMAZENIL 0.5 MG/5 ML VIAL IV PUSH PRN (02:30)
[2017-09-18] MEDS ORDERED: LORazepam 2 MG TAB PO PRN (02:30)
[2017-09-18] MEDS ORDERED: LORazepam 2 MG/ML VIAL IV PUSH PRN ×4 (02:30)
[2017-09-18] MEDS ORDERED: SODIUM CHLOR 0.9% 1000 ML INJ 1,000 ML IV SCH (04:15)
--- NOTE | 2017-09-18 04:51 | HHI.HP ---
[facility] No Primary Care Physician Admission Diagnosis colitis. GI bleed. Diagnoses: Travel History International Travel<30 Days: No Contact w/Intl Traveler <30 Da: No Traveled to Known Affected Are: No History of Present Illness 66-year-old male with a past medical history significant for COPD, hypertension and stage IV esophageal cancer status post radiation and currently undergoing chemotherapy with Ramucirumab presents with one episode of black tarry stool and bright red blood per rectum. The patient reports lower abdominal pain, left greater than right, and a history of constipation prior to the bowel movement that he had yesterday. He is followed by Dr. Corona, last immunotherapy 6 days ago. Vital signs stable with a pulse of 74, respiratory rate of 20, blood pressure 176/88 and O2 saturation 98% on room air. CT of the abdomen/pelvis showed diffuse thickening of the descending colon with pericolonic inflammatory changes and fluid characteristic of a nonspecific colitis. There was concern for stenosis of the SMA and dense calcification in the distal aorta in the region of the LLOYD which could limit blood flow. CTA of the abdominal vasculature was recommended as follow-up. Review of Systems Denies fever or chills Denies blurry vision, otorrhea, rhinorrhea Denies sore throat, positive cough No chest pain, palpitations, shortness of breath Positive abdominal pain Positive constipation, No diarrhea/nausea/vomiting Denies muscle pain/weakness No rashes Past Family Social History Past Medical History Alcohol abuse COPD GERD Hypertension Rheumatoid arthritis Stage IV esophageal cancer with pulmonary nodules and liver nodule Past Surgical History Ankle surgery Appendectomy Reported Medications Reported Meds & Active Scripts Active Hydrocodone-Acetaminophen Liq 7.5-325 Mg/15 Ml Soln 10 Ml PO Q6H PRN Methadone (Methadone HCl) 5 Mg Tab 5 Mg PO DAILY Reported Zofran (Ondansetron HCl) 4 Mg Tab 4 Mg PO Q8HR PRN Multi-Vitamin Daily (Multiple Vitamin) 1 Tab Tab 1 Tab PO DAILY Protonix (Pantoprazole Sodium) 40 Mg Tab 40 Mg PO DAILY Allergies: Coded Allergies: No Known Allergies (Unverified Allergy, Unknown, 09/17/17) Family History Mother of MA at age 84 Social History Smokes a half a pack per day 40 years. Drinks approximately 6 beers per day. Smokes marijuana daily. Denies other illicit drugs. Physical Exam Vital Signs Vital Signs Date Time Temp Pulse Resp B/P (MAP) Pulse Ox O2 Delivery O2 Flow Rate FiO2 09/18/17 01:56 18 09/17/17 23:24 74 20 176/88 (117) 98 Room Air 09/17/17 21:12 73 20 172/90 (117) 98 Room Air 09/17/17 19:50 81 24 169/90 (116) 100 Room Air 09/17/17 18:56 68 18 194/92 (126) 99 Room Air 09/17/17 18:54 99 Room Air 09/17/17 17:10 98.3 80 12 204/104 (137) 96 Physical Exam GENERAL: Cachectic, male lying in bed SKIN: No rashes, ecchymoses or lesions. Cool and dry. HEAD: Atraumatic. Normocephalic. No temporal or scalp tenderness. EYES: Pupils equal round and reactive. Extraocular motions intact. No scleral icterus. No injection or drainage. ENT: Nose without bleeding, purulent drainage or septal hematoma. Throat without erythema, tonsillar hypertrophy or exudate. Uvula midline. Airway patent. NECK: Trachea midline. No JVD or lymphadenopathy. Supple, nontender, no meningeal signs. CARDIOVASCULAR: Regular rate and rhythm without murmurs, gallops, or rubs. RESPIRATORY: Clear to auscultation. Breath sounds equal bilaterally. No wheezes , rales, or rhonchi. GASTROINTESTINAL: Abdomen sof, nondistended. Tender to palpation in the lower quadrants, left greater than right. No hepato-splenomegaly, or palpable masses. No guarding. MUSCULOSKELETAL: Extremities without clubbing, cyanosis, or edema. No joint tenderness, effusion, or edema noted. No calf tenderness. Negative Homans sign bilaterally. NEUROLOGICAL: Awake and alert. Cranial nerves II through XII intact. Motor and sensory grossly within normal limits. Normal speech. Laboratory Laboratory Tests Test 09/17/17 18:40 09/17/17 20:10 White Blood Count 10.5 Red Blood Count 3.64 Hemoglobin 14.1 Hematocrit 40.1 Mean Corpuscular Volume 110.1 Mean Corpuscular Hemoglobin 38.6 Mean Corpuscular Hemoglobin Concent 35.1 Red Cell Distribution Width 12.4 Platelet Count 145 Mean Platelet Volume 7.3 Neutrophils (%) (Auto) 87.1 Lymphocytes (%) (Auto) 4.4 Monocytes (%) (Auto) 8.3 Eosinophils (%) (Auto) 0.0 Basophils (%) (Auto) 0.2 Neutrophils # (Auto) 9.1 Lymphocytes # (Auto) 0.5 Monocytes # (Auto) 0.9 Eosinophils # (Auto) 0.0 Basophils # (Auto) 0.0 CBC Comment DIFF FINAL Differential Comment Prothrombin Time 10.6 Prothromb Time International Ratio 1.0 Activated Partial Thromboplast Time 52.4 Blood Urea Nitrogen 14 Creatinine 0.75 Random Glucose 117 Total Protein 7.3 Albumin 3.6 Calcium Level 9.0 Alkaline Phosphatase 91 Aspartate Amino Transf (AST/SGOT) 138 Alanine Aminotransferase (ALT/SGPT) 69 Total Bilirubin 0.7 Sodium Level 132 Potassium Level 3.9 Chloride Level 95 Carbon Dioxide Level 27.9 Anion Gap 9 Estimat Glomerular Filtration Rate 105 Lactic Acid Level 1.9 Urine Color YELLOW Urine Turbidity CLEAR Urine pH 8.0 Urine Specific [place] 1.024 Urine Protein TRACE Urine Glucose (UA) NEG Urine Ketones 40 Urine Occult Blood NEG Urine Nitrite NEG Urine Bilirubin NEG Urine Urobilinogen 4.0 Urine Leukocyte Esterase NEG Urine RBC 1 Urine WBC 3 Urine Squamous Epithelial Cells <1 Urine Mucus FEW Microscopic Urinalysis Comment CULT NOT INDICATED Result Diagram: 09/17/17183909/17/171839 Caprini VTE Risk Assessment Caprini VTE Risk Assessment: Mod/High Risk (score >= 2) Caprini Risk Assessment Model Point Value = 1 Point Value = 2 Point Value = 3 Point Value = 5 Age 41-60 Minor surgery BMI > 25 kg/m2 Swollen legs Varicose veins or History of unexplained or recurrent spontaneous Oral contraceptives or hormone replacement Sepsis (< 1 month) Serious lung disease, including pneumonia (< 1 month) Abnormal pulmonary function Acute myocardial infarction Congestive heart failure (< 1 month) History of inflammatory bowel disease Medical patient at bed rest Age 61-74 Arthroscopic surgery Major open surgery (> 45 min) Laparoscopic surgery (> 45 min) Malignancy Confined to bed (> 72 hours) Immobilizing plaster cast Central venous access Age >= 75 History of VTE Family history of VTE Factor V Leiden Prothrombin [id number] Lupus anticoagulant Anticardiolipin antibodies Elevated serum homocysteine Heparin-induced thrombocytopenia Other congenital or acquired thrombophilia Stroke (< 1 month) Elective arthroplasty Hip, pelvis, or leg fracture Acute spinal cord injury (< 1 month) Prophylaxis Regimen Total Risk Factor Score Risk Level Prophylaxis Regimen 0-1 Low Early ambulation 2 Moderate Order ONE of the following: *Sequential Compression Device (SCD) *Heparin 5000 units SQ BID 3-4 Higher Order ONE of the following medications: *Heparin 5000 units SQ TID *Enoxaparin/Lovenox 40 mg SQ daily (WT < 150 kg, CrCl > 30 mL/min) *Enoxaparin/Lovenox 30 mg SQ daily (WT < 150 kg, CrCl > 10-29 mL/min) *Enoxaparin/Lovenox 30 mg SQ BID (WT < 150 kg, CrCl > 30 mL/min) AND/OR *Sequential Compression Device (SCD) 5 or more Highest Order ONE of the following medications: *Heparin 5000 units SQ TID (Preferred with Epidurals) *Enoxaparin/Lovenox 40 mg SQ daily (WT < 150 kg, CrCl > 30 mL/min) *Enoxaparin/Lovenox 30 mg SQ daily (WT < 150 kg, CrCl > 10-29 mL/min) *Enoxaparin/Lovenox 30 mg SQ BID (WT < 150 kg, CrCl > 30 mL/min) AND *Sequential Compression Device (SCD) Assessment and Plan Assessment and Plan 66-year-old male with a past medical history significant for stage IV esophageal cancer, currently undergoing immunotherapy, COPD, alcohol abuse, and hypertension presents with black stools and bright red blood per rectum with lower abdominal pain. 1. Lower GI bleed Patient with one episode of black, tarry stool and bright red blood per rectum Follow H&H IV Protonix NPO Gastroenterology consulted, appreciate assistance 2. Abdominal pain/colitis CT of the abdomen/pelvis showed nonspecific colitis of the descending colon with concern for stenosis of the SMA and dense calcification in the distal aorta in the region of the LLOYD CTA of the abdomen/pelvis pending Cipro/Flagyl Dilaudid for pain 3. Esophageal cancer Patient known to Dr. Corona, consult oncology Pain control with Dilaudid 4. Alcohol abuse Patient drinks approximately one sixpack per day CIWA protocol Folate/Thiamine FEN NPO NS at 75 cc/hr Electrolytes: monitor and replete prn Holding pharmacologic anticoagulation out of concern for GI bleed Case discussed with ER physician at length Physician Certification 2 Midnight Certification Type: Admission for Inpatient Services Order for Inpatient Services The services are ordered in accordance with Medicare regulations or non- Medicare payer requirements, as applicable. In the case of services not specified as inpatient-only, they are appropriately provided as inpatient services in accordance with the 2-midnight benchmark. Estimated LOS (days): 2 2 days is the estimated time the patient will need to remain in the hospital, assuming treatment plan goals are met and no additional complications. Post-Hospital Plan: Not yet determined Sarah Mcgrath MD Sep 18, 2017 04:51
[2017-09-18] MEDS: CIPROFLOXACIN 400 MG PREMIX 200 ML IV SCH ×2 (05:07→16:15)
[2017-09-18] MEDS: PANTOPRAZOLE SODIUM 40 MG VIAL IV PUSH SCH (05:07)
[2017-09-18] MEDS: metroNIDAZOLE 500 MG INJ 100 ML IV SCH ×3 (05:07→21:36)
[2017-09-18] MEDS: MULTIVITAMIN INJ 10 ML, FOLIC ACID INJ 1 MG in SODIUM CHLORID 0.9% 500 ML INJ 500 ML IV SCH (05:32)
[2017-09-18] MEDS: THIAMINE INJ 100 MG in SODIUM CHLORIDE 0.9% INJ 100 ML IV SCH (05:32)
[2017-09-18 07:22] LABS: AUTOMATED NEUTROPHIL # 9.4 TH/MM3 (1.8-7.7); BASOPHIL % 0.2 % (0.0-2.0); EOSINOPHIL % 0.1 % (0.0-4.0); HEMATOCRIT 38.5 % (39.0-51.0); HEMO FLAGS DIFF FINAL; LYMPH % 8.1 % (9.0-44.0); LYMPHOCYTE # 0.9 TH/MM3 (1.0-4.8); MEAN CELL VOLUME 110.3 FL (80.0-100.0); MEAN CORPUSCULAR HEMOGLOBIN 38.7 PG (27.0-34.0); MEAN CORPUSCULAR HGB CONC 35.1 % (32.0-36.0); MONO % 10.3 % (0.0-8.0); NEUT % 81.3 % (16.0-70.0); PLATELET COUNT 123 TH/MM3 (150-450); RED BLOOD COUNT 3.49 MIL/MM3 (4.50-5.90); RED CELL DISTRIBUTION WIDTH 12.3 % (11.6-17.2); WHITE BLOOD COUNT 11.6 TH/MM3 (4.0-11.0)
[2017-09-18 07:50] LABS: BICARBONATE 28.3 MEQ/L (21.0-32.0); POTASSIUM 3.6 MEQ/L (3.5-5.1)
[2017-09-18] MEDS ORDERED: PNEUMOCOCCAL POLYVALENT INJ 25 MCG/0.5 ML SYR IM ONE (09:00)
[2017-09-18] MEDS ORDERED: INFLUENZA VIRUS VACCINE (QUADRIVALENT) 0.5 ML SYR IM ONE (09:00)
[2017-09-18] MEDS ORDERED: MULTIVITAMINS/MINERALS THERAPEUTIC TAB PO SCH (09:00)
[2017-09-18] MEDS ORDERED: FOLIC ACID 1 MG TAB PO SCH (09:00)
[2017-09-18] MEDS ORDERED: THIAMINE HCL 100 MG TAB PO SCH (09:00)
[2017-09-18] MEDS: SODIUM CHLORIDE 0.9% FLUSH 10 ML FLUSH IV FLUSH SCH ×2 (09:00→21:35)
--- NOTE | 2017-09-18 09:31 | HHI.PR ---
Subjective Remarks This is a pleasant 66 y/o male with COPD, hypertension and stage IV esophageal cancer status post radiation and currently undergoing chemotherapy with Ramucirumab presents with one episode of black tarry stool and bright red blood per rectum. The patient reports lower abdominal pain, left greater than right, and a history of constipation prior to the bowel movement that he had yesterday. He is followed by Dr. Corona, CT of the abdomen/pelvis showed diffuse thickening of the descending colon with pericolonic inflammatory changes and fluid characteristic of a nonspecific colitis. There was concern for stenosis of the SMA and dense calcification in the distal aorta in the region of the LLOYD which could limit blood flow. he also has Alcohol abuse history, RA, GERD, 09/18: Seen in his bedroom in the presence of nurse, he will have probable procedure later today, no nausea, vomit or diarrhea. Objective Vital Signs Date Time Temp Pulse Resp B/P (MAP) Pulse Ox O2 Delivery O2 Flow Rate FiO2 09/18/17 07:32 98.1 73 17 170/93 (118) 98 09/18/17 06:11 18 09/18/17 04:00 98.7 67 20 160/89 (112) 96 09/17/17 23:24 74 20 176/88 (117) 98 Room Air 09/17/17 21:12 73 20 172/90 (117) 98 Room Air 09/17/17 19:50 81 24 169/90 (116) 100 Room Air 09/17/17 18:56 68 18 194/92 (126) 99 Room Air 09/17/17 18:54 99 Room Air 09/17/17 17:10 98.3 80 12 204/104 (137) 96 I/O 09/17/17 09/17/17 09/17/17 09/18/17 09/18/17 09/18/17 07:00 15:00 23:00 07:00 15:00 23:00 Intake Total 401 ml Output Total 375 ml Balance 26 ml Intake IV Total 401 ml Output Urine Total 375 ml # Voids 1 Result Diagram: 09/18/17 0700 09/18/17 0700 Imaging Last Impressions Abdomen/Pelvis CT 09/17/171821 Signed Impressions: Service Date/Time: Sunday, September 17, 2017 20:38 - CONCLUSION: 1. Diffuse thickening of the descending colon with pericolonic inflammatory changes and fluid characteristic of a nonspecific colitis. 2. However, in concern there may be a nonostial stenosis of the SMA and there is dense calcification of the distal aorta in the region of the L[place]YD with marked narrowing of the aortic and left iliac luminal diameter. The combination could limit flow to the LLOYD distribution and explain current radiographic findings. I would recommend a CTA of the abdominal vasculature sometime tomorrow (patient received contrast for the current exam) for further evaluation of the regional vasculature. 3. Mass lesions in the lung bases are smaller when compared to the prior exam characteristic of a favorable response to therapy. 4. However, there is a new 1.3 cm hypodense lesion in the left hepatic lobe concerning for a metastatic deposit. 5. Stable hydropic configuration of the gallbladder with distention of the CBD measuring 1.1 cm at the pancreatic head. Vicente Paula MD Procedures None Other Results Laboratory Tests Test 09/17/17 18:40 09/17/17 20:10 09/18/17 07:00 Prothrombin Time 10.6 SEC Prothromb Time International Ratio 1.0 RATIO Activated Partial Thromboplast Time 52.4 SEC Lactic Acid Level 1.9 mmol/L Blood Urea Nitrogen 14 MG/DL 10 MG/DL Creatinine 0.75 MG/DL 0.57 MG/DL Random Glucose 117 MG/DL 98 MG/DL Total Protein 7.3 GM/DL Albumin 3.6 GM/DL Calcium Level 9.0 MG/DL 8.1 MG/DL Alkaline Phosphatase 91 U/L Aspartate Amino Transf (AST/SGOT) 138 U/L Alanine Aminotransferase (ALT/SGPT) 69 U/L Total Bilirubin 0.7 MG/DL Sodium Level 132 MEQ/L 132 MEQ/L Potassium Level 3.9 MEQ/L 3.6 MEQ/L Chloride Level 95 MEQ/L 95 MEQ/L Carbon Dioxide Level 27.9 MEQ/L 28.3 MEQ/L Urine Color YELLOW Urine Turbidity CLEAR Urine pH 8.0 Urine Specific [place] 1.024 Urine Protein TRACE mg/dL Urine Glucose (UA) NEG mg/dL Urine Ketones 40 mg/dL Urine Occult Blood NEG Urine Nitrite NEG Urine Bilirubin NEG Urine Urobilinogen 4.0 MG/DL Urine Leukocyte Esterase NEG Urine RBC 1 /hpf Urine WBC 3 /hpf Urine Squamous Epithelial Cells <1 /hpf Urine Mucus FEW /lpf Microscopic Urinalysis Comment CULT NOT INDICATED White Blood Count 11.6 TH/MM3 Red Blood Count 3.49 MIL/MM3 Hemoglobin 13.5 GM/DL Hematocrit 38.5 % Mean Corpuscular Volume 110.3 FL Mean Corpuscular Hemoglobin 38.7 PG Mean Corpuscular Hemoglobin Concent 35.1 % Red Cell Distribution Width 12.3 % Platelet Count 123 TH/MM3 Mean Platelet Volume 7.4 FL Neutrophils (%) (Auto) 81.3 % Lymphocytes (%) (Auto) 8.1 % Monocytes (%) (Auto) 10.3 % Eosinophils (%) (Auto) 0.1 % Basophils (%) (Auto) 0.2 % Neutrophils # (Auto) 9.4 TH/MM3 Lymphocytes # (Auto) 0.9 TH/MM3 Monocytes # (Auto) 1.2 TH/MM3 Eosinophils # (Auto) 0.0 TH/MM3 Basophils # (Auto) 0.0 TH/MM3 CBC Comment DIFF FINAL Differential Comment Anion Gap 9 MEQ/L Estimat Glomerular Filtration Rate 144 ML/MIN Objective Remarks GENERAL: No acute distress. SKIN: No rashes, ecchymoses or lesions. HEAD: Atraumatic. Normocephalic. EYES: Pupils equal round and reactive. Extraocular motions intact. No scleral icterus. No injection or drainage. NECK: supple, no JVD no lymphadenopathy. CARDIOVASCULAR: Regular rate and rhythm without murmurs, gallops, or rubs. RESPIRATORY: Clear to auscultation. GASTROINTESTINAL: Abdomen sof, nondistended. MUSCULOSKELETAL: Extremities without clubbing, cyanosis, or edema. NEUROLOGICAL: Awake and alert. No focal deficits. Medications and IVs Current Medications Medications (Trade) Dose Ordered Sig/Dana Route Start Time Stop Time Status Last Admin (NS Flush) 2 ml UNSCH PRN IV FLUSH 09/18/17 00:00 (NS Flush) 2 ml BID IV FLUSH 09/18/17 09:00 (Zofran Inj) 4 mg Q6H PRN IVP 09/18/17 00:00 (Narcan Inj) 0.4 mg UNSCH PRN IV PUSH 09/18/17 00:00 (Dilaudid Pf Inj) 0.5 mg Q4H PRN IV PUSH 09/18/17 00:15 09/18/17 05:40 (Folate) 1 mg DAILY PO 09/18/17 09:00 09/23/17 08:59 (Theragran M Tab) 1 tab DAILY PO 09/18/17 09:00 09/23/17 08:59 (Romazicon Inj) 0.2 mg Q1M PRN IV PUSH 09/18/17 02:30 (Ativan) 1 mg Q4H PRN PO 09/18/17 02:30 (Ativan Inj) 1 mg Q4H PRN IV PUSH 09/18/17 02:30 (Ativan) 2 mg Q2H PRN PO 09/18/17 02:30 (Ativan Inj) 2 mg Q2H PRN IV PUSH 09/18/17 02:30 (Ativan Inj) 2 mg Q1H PRN IV PUSH 09/18/17 02:30 (Ativan Inj) 2 mg Q15M PRN IV PUSH 09/18/17 02:30 (Protonix Inj) 40 mg Q24H IV PUSH 09/18/17 04:15 09/18/17 05:07 Ciprofloxacin/ Dextrose 200 ml @ 200 mls/hr Q12H IV 09/18/17 04:15 09/18/17 05:07 Metronidazole 100 ml @ 100 mls/hr Q8H IV 09/18/17 05:30 09/18/17 05:07 Sodium Chloride 1,000 ml @ 75 mls/hr [id number] IV 09/18/17 04:15 09/18/17 05:07 Multivitamins 10 ml/Folic Acid 1 mg/Sodium Chloride 510.2 ml @ 125 mls/hr Q24H IV 09/18/17 06:00 09/23/17 05:59 09/18/17 05:32 Thiamine HCl 100 mg/Sodium Chloride 101 ml @ 100 mls/hr Q24H IV 09/18/17 06:00 09/21/17 05:59 09/18/17 05:32 (Vitamin B1) 100 mg DAILY PO 09/21/17 09:00 A/P Assessment and Plan 66-year-old male with a past medical history significant for stage IV esophageal cancer, currently undergoing immunotherapy, COPD, alcohol abuse, and hypertension presents with black stools and bright red blood per rectum with lower abdominal pain. 1. Lower GI bleed Patient with one episode of black, tarry stool and bright red blood per rectum Hemoglobin stable, continue NPO for probable procedure later, continue PPIs, Gastroenterology specialist already saw the patient and will have procedure later today. 2. Abdominal pain/colitis CT of the abdomen/pelvis showed nonspecific colitis of the descending colon with concern for stenosis of the SMA and dense calcification in the distal aorta in the region of the [place] CTA of the abdomen/pelvis pending Cipro/Flagyl Dilaudid for pain, GI specialist following. 3. Esophageal cancer Patient known to Dr. Corona, consult oncology Pain control with Dilaudid 4. Alcohol abuse Patient drinks approximately one sixpack per day [facility] protocol Folate/Thiamine 5. Tobacco dependence Strongly recommended to stop smoking, continue Bronchodilator, Mucolytic and incentive spirometry FEN NPO NS at 75 cc/hr Electrolytes: monitor and replete prn Holding pharmacologic anticoagulation out of concern for GI bleed and probable procedure later today Discharge Planning Once cleared by specialists. Trevon Worley MD Sep 18, 2017 9:31 am
--- NOTE | 2017-09-18 09:53 | PD.CONS ---
HPI History of Present Illness This is a 66 year old male known history of stage IV esophageal cancer with metastatic disease to the liver and lungs who presented to the emergency room for evaluation of lower gastrointestinal bleeding, consisting of mostly red blood mixed within his stool. He was diagnosed with stage IV esophageal cancer in March 2017 by lung biopsy and abnormal imaging of the esophagus, lung, and liver. 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 He completed palliative chemotherapy therapy and radiation and is currently on immunotherapy with Ramucirumab, which he last took 6-7 days ago. He is followed by Dr. Corona for oncology. He reports that since his diagnosis he has had intermittent issues with dysphagia and nausea, vomiting, and esophageal pain. This has improved after receiving radiation but he continues to have intermittent issues. Since his diagnosis he saw us about 20 pounds but reports that that his weight has more recently been stable. He takes methadone and Vicodin for his chronic pain related to his cancer. He reports pain in his esophagus and also an his back. He does have chronic constipation related to his narcotic use. Yesterday he felt constipated and was unable to move his bowels. He drinks a glass of prune juice and then had the sudden urge to move his bowels, but was unable to pass any stool. He reports that he strained and eventually did pass a large hard bowel movement. After passing the hard stool, he started having diarrhea consisting of mostly red blood with "a small amount of black flecks." He was feeling weak and having severe lower abdominal cramping (which is a new discomfort) and therefore came to the emergency room for further evaluation. CT Scan abdomen and pelvis (09/17/17)---> diffuse thickening of the descending colon with pericolonic inflammatory changes and fluid characteristic of a nonspecific colitis. However, in concern there may be a non -ostial stenosis of the SMA and there is dense calcification of the distal aorta in the region of the [place] with market narrowing of the aortic and left iliac luminal diameter. The combination could limit flow to the LLOYD distribution and explain current radiographic findings. I would recommend a CTA of the abdominal vasculature sometime tomorrow (patient received contrast for the current exam) for further evaluation of the regional vasculature. Mass lesions in the lung bases are smaller when compared to the prior exam characteristic of a favorable response to therapy. However there is a new 1.3 cm hypodense lesion in the left hepatic lobe concerning for medical static deposit. Stable hydropic configuration of the gallbladder with distention of the common bile duct measuring 1.1 cm at the pancreatic head. I spoke to Victor[place] and they are unable to perform the CTA until 1030 tonight and therefore this will likely be done tomorrow. The patient reports that his last colonoscopy was more than 10 years ago. He denies any recent travel, but was recently on antibiotics and steroids for bronchitis. No suspicious food or sick contacts. (Sugey Hernández) PFSH Past Medical History Alcohol abuse COPD GERD Hypertension Rheumatoid arthritis Stage IV esophageal cancer with pulmonary disease and liver lesion Macrocytosis Pulmonary nodule Dysphagia Weight loss Esophageal pain Chronic back pain Chronic constipation Past Surgical History Ankle surgery Appendectomy Colonoscopy more than 10 years ago per patient Cyst removed from nasal cavity (Sugey Hernández) Coded Allergies: No Known Allergies (Unverified Allergy, Unknown, 09/17/17) Medications Allergies Coded Allergies Type Severity Reaction Last Updated Verified No Known Allergies Allergy Unknown 09/17/17 No Active Scripts Medications Dose Route/Sig Max Daily Dose Days Date Category Zofran (Ondansetron HCl) 4 Mg Tab 4 Mg PO Q8HR PRN 09/17/17 Reported Hydrocodone-Acetaminophen Liq 7.5-325 Mg/15 Ml Soln 10 Ml PO Q6H PRN 07/25/17 Rx Methadone (Methadone HCl) 5 Mg Tab 5 Mg PO DAILY 07/25/17 Rx Multi-Vitamin Daily (Multiple Vitamin) 1 Tab Tab 1 Tab PO DAILY 04/11/17 Reported Protonix (Pantoprazole Sodium) 40 Mg Tab 40 Mg PO DAILY 03/21/17 Reported Family History Mother of ID at age 84 Social History Smokes a half a pack per day 40 years. Drinks approximately 6 beers per day. Smokes marijuana daily. Denies other illicit drugs. (Sugey Hernández) Review of Systems Constitutional: COMPLAINS OF: Fatigue, Weight loss, DENIES: Fever, Chills Respiratory: COMPLAINS OF: Shortness of breath, DENIES: Cough Gastrointestinal: COMPLAINS OF: Abdominal pain, Bloody stools, Constipation, Diarrhea, Nausea, Vomiting, Difficulty Swallowing, Odynophagia, DENIES: Hematemesis Musculoskeletal: COMPLAINS OF: Back pain Integumentary: DENIES: Abnormal pigmentation Hematologic/lymphatic: DENIES: Bruising Neurologic: DENIES: Headache Psychiatric: DENIES: Confusion (EdgarSugey Burris [place]) GI Exam Vitals I&O Vital Signs Date Time Temp Pulse Resp B/P (MAP) Pulse Ox O2 Delivery O2 Flow Rate FiO2 09/18/17 07:32 98.1 73 17 170/93 (118) 98 09/18/17 06:11 18 09/18/17 04:00 98.7 67 20 160/89 (112) 96 09/17/17 23:24 74 20 176/88 (117) 98 Room Air 09/17/17 21:12 73 20 172/90 (117) 98 Room Air 09/17/17 19:50 81 24 169/90 (116) 100 Room Air 09/17/17 18:56 68 18 194/92 (126) 99 Room Air 09/17/17 18:54 99 Room Air 09/17/17 17:10 98.3 80 12 204/104 (137) 96 I/O 09/17/17 09/17/17 09/17/17 09/18/17 09/18/17 09/18/17 07:00 15:00 23:00 07:00 15:00 23:00 Intake Total 401 ml Output Total 375 ml Balance 26 ml Intake IV Total 401 ml Output Urine Total 375 ml # Voids 1 Imaging Last Impressions Abdomen/Pelvis CT 09/17/17 1822 Signed Impressions: Service Date/Time: Sunday, September 17, 2017 20:38 - CONCLUSION: 1. Diffuse thickening of the descending colon with pericolonic inflammatory changes and fluid characteristic of a nonspecific colitis. 2. However, in concern there may be a nonostial stenosis of the SMA and there is dense calcification of the distal aorta in the region of the [place] with marked narrowing of the aortic and left iliac luminal diameter. The combination could limit flow to the [place] distribution and explain current radiographic findings. I would recommend a CTA of the abdominal vasculature sometime tomorrow (patient received contrast for the current exam) for further evaluation of the regional vasculature. 3. Mass lesions in the lung bases are smaller when compared to the prior exam characteristic of a favorable response to therapy. 4. However, there is a new 1.3 cm hypodense lesion in the left hepatic lobe concerning for a metastatic deposit. 5. Stable hydropic configuration of the gallbladder with distention of the CBD measuring 1.1 cm at the pancreatic head. Vicente Paula MD Laboratory Test 09/17/17 18:40 09/17/17 20:10 09/18/17 07:00 White Blood Count 10.5 TH/MM3 11.6 TH/MM3 Red Blood Count 3.64 MIL/MM3 3.49 MIL/MM3 Hemoglobin 14.1 GM/DL 13.5 GM/DL Hematocrit 40.1 % 38.5 % Mean Corpuscular Volume 110.1 FL 110.3 FL Mean Corpuscular Hemoglobin 38.6 PG 38.7 PG Mean Corpuscular Hemoglobin Concent 35.1 % 35.1 % Red Cell Distribution Width 12.4 % 12.3 % Platelet Count 145 TH/MM3 123 TH/MM3 Mean Platelet Volume 7.3 FL 7.4 FL Neutrophils (%) (Auto) 87.1 % 81.3 % Lymphocytes (%) (Auto) 4.4 % 8.1 % Monocytes (%) (Auto) 8.3 % 10.3 % Eosinophils (%) (Auto) 0.0 % 0.1 % Basophils (%) (Auto) 0.2 % 0.2 % Neutrophils # (Auto) 9.1 TH/MM3 9.4 TH/MM3 Lymphocytes # (Auto) 0.5 TH/MM3 0.9 TH/MM3 Monocytes # (Auto) 0.9 TH/MM3 1.2 TH/MM3 Eosinophils # (Auto) 0.0 TH/MM3 0.0 TH/MM3 Basophils # (Auto) 0.0 TH/MM3 0.0 TH/MM3 CBC Comment DIFF FINAL DIFF FINAL Differential Comment Prothrombin Time 10.6 SEC Prothromb Time International Ratio 1.0 RATIO Activated Partial Thromboplast Time 52.4 SEC Blood Urea Nitrogen 14 MG/DL 10 MG/DL Creatinine 0.75 MG/DL 0.57 MG/DL Random Glucose 117 MG/DL 98 MG/DL Total Protein 7.3 GM/DL Albumin 3.6 GM/DL Calcium Level 9.0 MG/DL 8.1 MG/DL Alkaline Phosphatase 91 U/L Aspartate Amino Transf (AST/SGOT) 138 U/L Alanine Aminotransferase (ALT/SGPT) 69 U/L Total Bilirubin 0.7 MG/DL Sodium Level 132 MEQ/L 132 MEQ/L Potassium Level 3.9 MEQ/L 3.6 MEQ/L Chloride Level 95 MEQ/L 95 MEQ/L Carbon Dioxide Level 27.9 MEQ/L 28.3 MEQ/L Anion Gap 9 MEQ/L 9 MEQ/L Estimat Glomerular Filtration Rate 105 ML/MIN 144 ML/MIN Lactic Acid Level 1.9 mmol/L Urine Color YELLOW Urine Turbidity CLEAR Urine pH 8.0 Urine Specific [place] 1.024 Urine Protein TRACE mg/dL Urine Glucose (UA) NEG mg/dL Urine Ketones 40 mg/dL Urine Occult Blood NEG Urine Nitrite NEG Urine Bilirubin NEG Urine Urobilinogen 4.0 MG/DL Urine Leukocyte Esterase NEG Urine RBC 1 /hpf Urine WBC 3 /hpf Urine Squamous Epithelial Cells <1 /hpf Urine Mucus FEW /lpf Microscopic Urinalysis Comment CULT NOT INDICATED Physical Examination HEENT: Normocephalic; atraumatic; no jaundice. CHEST: CTA CARDIAC: RRR ABDOMEN: Soft, nondistended,moderate lower abdominal tenderness; no hepatosplenomegaly; bowel sounds are present in all four quadrants. EXTREMITIES: No clubbing, cyanosis, or edema. SKIN: Normal; no rash; no jaundice. 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 (Sugey Hernández) Assessment and Plan Plan ASSESSMENT: - Acute Colitis with abdominal pain and lower GI bleeding. CT Scan abdomen and pelvis (09/17/17)---> diffuse thickening of the descending colon with pericolonic inflammatory changes and fluid characteristic of a nonspecific colitis. However, in concern there may be a non-ostial stenosis of the SMA and there is dense calcification of the distal aorta in the region of the [place] with market narrowing of the aortic and left iliac luminal diameter. The combination could limit flow to the [place] distribution and explain current radiographic findings. I would recommend a CTA of the abdominal vasculature sometime tomorrow (patient received contrast for the current exam) for further evaluation of the regional vasculature. Mass lesions in the lung bases are smaller when compared to the prior exam characteristic of a favorable response to therapy. However there is a new 1.3 cm hypodense lesion in the left hepatic lobe concerning for medical static deposit. Stable hydropic configuration of the gallbladder with distention of the common bile duct measuring 1.1 cm at the pancreatic head. I spoke to Victoriano in [place] and they are unable to perform the CTA until 1030 tonight and therefore this will likely be done tomorrow. Flexible sigmoidoscopy today. Stool studies. Cipro/Flagyl. - Lower GIB. Multiple episodes of bloody stool. Will get flexible sigmoidoscopy today. - Odynophagia, Dysphagia. Intermittent, improved after his chemo and radiation , but still having intermittent symptoms. - Abnormal imaging abdomen and pelvis, raising suspicion for ischemic colitis. CT as above. Plan will be for CTA tomorrow. Vascular surgery evaluation. Will get flex. sigmoidoscopy evaluation - Chronic constipation. Aggravated by methadone, hydrocodone use. Takes prune juice. - GERD. PPI - N/V, Wt. Loss. Intermittent. Has lost 20 lbs, but states this has been stable more recently. - Stage IV Esophageal cancer with disease to the lung and liver. Dx March 2017. S/P Palliative Chemotherapy, Radiation. Now on immunotherapy with Ramucirumab, which he last took 6-7 days ago. He is followed by Dr. Corona for oncology. - Leukocytosis. Improved. - COPD, HTN, RA, per attending. PLAN: - Plan for egd, possible dilatation and flexible sigmoidoscopy - Obtain consents - NPO - SSE x 2 now - Stool for CDiff, O&P, Giardia, C/S, WBC - Cipro/Flagyl - Protonix 40mg IV daily - Monitor H&H - Transfuse as necessary - CTA in am (Spoke with Victoriano in [place], cannot be done until 10:30pm tonight, likely tomorrow) - Will get vascular surgical evaluation - CBC, BMP in am - Supportive care - Further recommendations to follow based on results of above - Pt seen and examined by Dr. Doss and myself and this note is written on her behalf (Sugey Hernández) Physician Comments seen, examined agree with above further recommendations based on the above results (Rosa Doss MD) Sugey Hernández Sep 18, 2017 09:53 Rosa Doss MD Sep 18, 2017 16:37
[2017-09-18] MEDS ORDERED: POTASSIUM CHLOR 20 MEQ PREMIX 100 ML IV ONE (10:00)
[2017-09-18] MEDS ORDERED: ESMOLOL HCL 100 MG/10 ML VIAL IV ONE (12:00)
[2017-09-18] MEDS ORDERED: PROPOFOL 200 MG/20 ML AMP IV ONE (12:00)
[2017-09-18] MEDS ORDERED: STERILE WATER FOR INJECTION 20 ML VIAL IV ONE (12:00)
[2017-09-18] MEDS ORDERED: MIDAZOLAM HCL 2 MG/2 ML VIAL IV ONE (12:00)
[2017-09-18] MEDS ORDERED: LACTATED RINGER'S 1000 ML IV PRN (13:30)
[2017-09-18] MEDS ORDERED: CHLORHEXIDINE GLUCONATE 2 % 1 PACK (2 CLOTHS) TOPICAL PRN (13:30)
[2017-09-18] MEDS ORDERED: METOPROLOL TARTRATE 25 MG TAB PO PRN (13:30)
[2017-09-18] MEDS ORDERED: POVIDONE IODINE 5% (ANTISEPSIS KIT) 4 APPLICATIONS EACH NARE PRN (13:30)
[2017-09-18] MEDS ORDERED: SODIUM CHLORID 0.9% 500 ML IV PRN (13:30)
[2017-09-18] MEDS ORDERED: INSULIN HUMAN REGULAR 1,000 UNITS/10 ML VIAL SQ PRN (13:30)
[2017-09-18 13:40] LABS: HEMATOCRIT 38.4 % (39.0-51.0); REVIEW FLAG FINAL
--- NOTE | 2017-09-18 14:00 | PD.VS.CON ---
History of Present Illness Chief Complaint: Possible SMA stenosis Consult Requested by: Gastroenterology History of Present Illness Mr. Paul is a 66/M who arrived to [facility] yesterday with a cc of sudden onset rectal bleeding with pelvic pain Pt has a PMH of HTN, COPD, GERD, Rheumatoid arthritis and Stage IV esophageal cancer with pulmonary nodules and liver nodule Pt c/o daily epigastric pain worse when swallowing or eating Abdomen tender to touch LEFT upper and lower quad (Diann Gonzales) Past/Family/Social History Past Medical History HTN COPD GERD RA Stage IV esophageal cancer with pulmonary nodules and liver nodule Past Surgical History Appendectomy Tonsillectomy Right Ankle Surgery Social History ETOH- drinks a 6 pack a day Smokes a pack of cigarettes daily Smokes Marijuana daily Lives at home with his spouse Retired [employer] (Diann Gonzales) Home Medications Active Scripts Hydrocodone-Acetaminophen Liq (Hydrocodone-Acetaminophen Liq) 7.5-325 Mg/15 Ml Soln, 10 ML PO Q6H Y for PAIN, #100 ML 0 Refills Prov:Christopher Hensley 07/25/17 Methadone (Methadone) 5 Mg Tab, 5 MG PO DAILY, #30 TAB Prov:Christopher Hensley 07/25/17 Reported Medications Ondansetron (Zofran) 4 Mg Tab, 4 MG PO Q8HR Y for NAUSEA OR VOMITING, TAB 0 Refills 09/17/17 Multiple Vitamin (Multi-Vitamin Daily) 1 Tab Tab, 1 TAB PO DAILY for Nutritional Supplement, TAB 0 Refills 04/11/17 Pantoprazole (Protonix) 40 Mg Tab, 40 MG PO DAILY for Reflux, #30 TAB 0 Refills 03/21/17 Coded Allergies: No Known Allergies (Unverified Allergy, Unknown, 09/17/17) Review of Systems Gastrointestinal: COMPLAINS OF: Abdominal pain, Black stools, Bloody stools, Constipation (Diann Gonzales) Physical Exam Vitals/I&O Date Time Temp Pulse Resp B/P (MAP) Pulse Ox O2 Delivery O2 Flow Rate FiO2 09/18/17 12:11 98.0 83 18 158/93 (114) 98 09/18/17 07:32 98.1 73 17 170/93 (118) 98 09/18/17 06:11 18 09/18/17 04:00 98.7 67 20 160/89 (112) 96 09/17/17 23:24 74 20 176/88 (117) 98 Room Air 09/17/17 21:12 73 20 172/90 (117) 98 Room Air 09/17/17 19:50 81 24 169/90 (116) 100 Room Air 09/17/17 18:56 68 18 194/92 (126) 99 Room Air 09/17/17 18:54 99 Room Air 09/17/17 17:10 98.3 80 12 204/104 (137) 96 09/18/17 09/18/17 09/18/17 07:00 15:00 23:00 Intake Total 401 ml Output Total 375 ml Balance 26 ml Neuro: A&OX3 GCS 15 CN 2-12 intact Neck: no JVD distention Heart: +S1,S2 Lungs: CTA Abdomen: Soft Left upper/lower quad TTP Vascular: Palpable R/L DP Extremities: warm w/ motor intact (ChristianJohnDiann F BOTTOM WHEELER) Laboratory Tests Test 09/17/17 18:40 09/17/17 20:10 09/18/17 07:00 09/18/17 12:55 White Blood Count 10.5 11.6 Red Blood Count 3.64 3.49 Hemoglobin 14.1 13.5 Hematocrit 40.1 38.5 Mean Corpuscular Volume 110.1 110.3 Mean Corpuscular Hemoglobin 38.6 38.7 Mean Corpuscular Hemoglobin Concent 35.1 35.1 Red Cell Distribution Width 12.4 12.3 Platelet Count 145 123 Mean Platelet Volume 7.3 7.4 Neutrophils (%) (Auto) 87.1 81.3 Lymphocytes (%) (Auto) 4.4 8.1 Monocytes (%) (Auto) 8.3 10.3 Eosinophils (%) (Auto) 0.0 0.1 Basophils (%) (Auto) 0.2 0.2 Neutrophils # (Auto) 9.1 9.4 Lymphocytes # (Auto) 0.5 0.9 Monocytes # (Auto) 0.9 1.2 Eosinophils # (Auto) 0.0 0.0 Basophils # (Auto) 0.0 0.0 CBC Comment DIFF FINAL DIFF FINAL Differential Comment Prothrombin Time 10.6 Prothromb Time International Ratio 1.0 Activated Partial Thromboplast Time 52.4 Blood Urea Nitrogen 14 10 Creatinine 0.75 0.57 Random Glucose 117 98 Total Protein 7.3 Albumin 3.6 Calcium Level 9.0 8.1 Alkaline Phosphatase 91 Aspartate Amino Transf (AST/SGOT) 138 Alanine Aminotransferase (ALT/SGPT) 69 Total Bilirubin 0.7 Sodium Level 132 132 Potassium Level 3.9 3.6 Chloride Level 95 95 Carbon Dioxide Level 27.9 28.3 Anion Gap 9 9 Estimat Glomerular Filtration Rate 105 144 Lactic Acid Level 1.9 Urine Color YELLOW Urine Turbidity CLEAR Urine pH 8.0 Urine Specific Horicon 1.024 Urine Protein TRACE Urine Glucose (UA) NEG Urine Ketones 40 Urine Occult Blood NEG Urine Nitrite NEG Urine Bilirubin NEG Urine Urobilinogen 4.0 Urine Leukocyte Esterase NEG Urine RBC 1 Urine WBC 3 Urine Squamous Epithelial Cells <1 Urine Mucus FEW Microscopic Urinalysis Comment CULT NOT INDICATED Last 48 hours Impressions Abdomen/Pelvis CT 09/17/17 2862 Signed Impressions: Service Date/Time: Sunday, September 17, 2017 20:38 - CONCLUSION: 1. Diffuse thickening of the descending colon with pericolonic inflammatory changes and fluid characteristic of a nonspecific colitis. 2. However, in concern there may be a nonostial stenosis of the SMA and there is dense calcification of the distal aorta in the region of the LLOYD with marked narrowing of the aortic and left iliac luminal diameter. The combination could limit flow to the LLOYD distribution and explain current radiographic findings. I would recommend a CTA of the abdominal vasculature sometime tomorrow (patient received contrast for the current exam) for further evaluation of the regional vasculature. 3. Mass lesions in the lung bases are smaller when compared to the prior exam characteristic of a favorable response to therapy. 4. However, there is a new 1.3 cm hypodense lesion in the left hepatic lobe concerning for a metastatic deposit. 5. Stable hydropic configuration of the gallbladder with distention of the CBD measuring 1.1 cm at the pancreatic head. Vicente Paula MD (Diann Gonzales) Assessment and Plan Assessment: (1) Abdominal pain Plan Recent CT with suggestive SMA stenosis and calcification of the distal aorta. Pt denied postprandial discomfort Plan Discussed w/ patient potential SMA stenosis Will review recent CT to determine best plan of action Diann BRYSON [facility] [phone] (Diann Gonzales) Plan Agree with above note. Patient underwent sigmoidoscopy that showed mucosal ischemic ulcerations. CT reviewed - has colitis descending colon and maybe SMA stenosis. LLOYD distribution malperfusion alone rarely causes symptoms and given intense aortic calcifications, would not intervene on LLOYD. Agree with dedicated CTA and if SMA stenosis, will perform SMA angio/stent likely tomorrow (). Continue antibiotics, bowel rest, and serial abdominal examinations. WBC declining and abdomen exam improving. Will follow closely. Sam Stacy MD FACS RPVI dean for student affairs [facility] - [facility] V[facility] Surgery at [facility] [phone] (Sam Stacy MD) Problem Qualifiers (1) Abdominal pain: Qualified Codes: R10.32 - Left lower quadrant pain Diann Gonzales Sep 18, 2017 14:00 Sam Stacy MD Sep 19, 2017 06:31
[2017-09-18] MEDS ORDERED: KETAMINE HCL 500 MG/5 ML VIAL ONE (16:19)
--- NOTE | 2017-09-18 16:42 | GIPROC ---
[facility] [address] [facility]. [facility], [address] EGD PROCEDURE REPORT EXAM DATE: 09/18/2017 PATIENT NAME: Van Paul MR #: [id number] BIRTHDATE: 1950 ATTENDING: Rosa Doss MD ORDER #: [id number] FAN BLADE TRUER: Kaley Vargas and Kajal Min STATUS: inpatient INDICATIONS: The patient is a 66 yr old male here for an EGD due to gi bleeding, history of esophageal cancer PROCEDURE PERFORMED: EGD, diagnostic MEDICATIONS: None and Per Anesthesia. TOPICAL ANESTHETIC: none CONSENT: The patient understands the risks and benefits of the procedure and understands that these risks include, but are not limited to: sedation, allergic reaction, infection, perforation and/or bleeding. Alternative means of evaluation and treatment include, among others: physical exam, x-rays, and/or surgical intervention. The patient elects to proceed with this endoscopic procedure. medical equipment was checked for proper function. Hand hygiene and appropriate measures for infection prevention was taken. After the risks, benefits and alternatives of the procedure were thoroughly explained, Informed consent was verified, confirmed and timeout was successfully executed by the treatment team. The patient was anesthetized with topical anesthesia and the Pentax [id number] endoscope was introduced through the mouth and advanced to the second portion of the duodenum. Retroflexed views revealed a hiatal hernia The gastroscope was then slowly withdrawn and removed. Radiation esophagitis midesophagus,no biopsy concern for bleeding gastritis antrum. Minimal stricturing in esophagus at the radiation site , no tumor seen. ADVERSE EVENTS: There were no complications. IMPRESSIONS: 1. Radiation esophagitis midesophagus,no biopsy concern for bleeding gastritis antrum 2. Retroflexed views revealed a hiatal hernia RECOMMENDATIONS: 1. Anti-reflux regimen 2. Continue PPI PATIENT CONDITION: stable DISPOSITION: Inpatient REPEAT EXAM: Return 3 months EGD Rosa Doss MD eSigned: Rosa Doss MD 09/18/2017 4:42 PM cc: PATIENT NAME: Van Paul MR#: [id number]
[2017-09-18] MEDS ORDERED: DO NOT ADM ANY ANTICOAGULANT DRUGS PRN (16:45)
--- NOTE | 2017-09-18 16:45 | GIPROC ---
[facility] [address] [facility]. [facility], [address] FLEXIBLE SIGMOIDOSCOPY PROCEDURE REPORT EXAM DATE: 09/18/2017 PATIENT NAME: Van Paul MR #: [id number] BIRTHDATE: 1950 ORDER #: [id number] ATTENDING: Rosa Doss MD DIRECTOR OF INFECTION CONTROL: Kaley Vargas and Kajal Min STATUS: inpatient INDICATIONS: The patient is a 66 yr old male here for a flexible sigmoidoscopy due to bleeding gi PROCEDURE PERFORMED: Flexible Sigmoidoscopy with biopsy MEDICATIONS: None and Per Anesthesia. ESTIMATED BLOOD LOSS: None CONSENT: The patient understands the risks and benefits of the procedure and understands that these risks include, but are not limited to: sedation, allergic reaction, infection, perforation and/or bleeding. Alternative means of evaluation and treatment include, among others: physical exam, x-rays, and/or surgical intervention. The patient elects to proceed with this endoscopic procedure. medical equipment was checked for proper function. Hand hygiene and appropriate measures for infection prevention was taken. After the risks, benefits and alternatives of the procedure were thoroughly explained, Informed consent was verified, confirmed and timeout was successfully executed by the treatment team. A digital rectal exam revealed external hemorrhoids The Pentax EG-[id number] endoscope was introduced through the anus and advanced to the descending colon. The prep was fair. The instrument was then slowly withdrawn as the colon was fully examined. COLON FINDINGS: Diverticulosis sigmoid,descending multiple ulcers in descending, sigmoid consistent with ischemic colitis-biopsy very friable mucosa-. Retroflexed views revealed internal hemorrhoid The scope was then completely withdrawn from the patient and the procedure terminated. ADVERSE EVENTS: There were no complications. IMPRESSIONS: 1. Diverticulosis sigmoid,descending multiple ulcers in descending, sigmoid consistent with ischemic colitis-biopsy very friable mucosa- 2. Retroflexed views revealed internal hemorrhoid 3. Revealed external hemorrhoids RECOMMENDATIONS: 1. Await biopsy results 2. Ice chips transfuse prn await vascular surgery eval await cta results will need to stop smoking hydration RECALL: Return 1 month Colonoscopy Rosa Doss MD eSigned: Rosa Doss MD 09/18/2017 4:45 PM cc: PATIENT NAME: Van Paul MR#: [id number]
--- NOTE | 2017-09-18 17:35 | EKG ---
Date Performed: 09/17/2017 Time Performed: 18:29:09 PTAGE: 66 years EKG: Sinus rhythm WITH SINUS A Since previous tracing, no significant change noted BORDERLINE ECG PREVIOUS TRACING : 03/12/2017 16.47 DOCTOR: Tawnya Springer Interpretating Date/Time 09/18/2017 17:33:46
[2017-09-18 18:49] LABS: REVIEW FLAG FINAL
[2017-09-18] MEDS ORDERED: DEXTROSE 5% IN WATE 1000ML INJ 1,000 ML IV SCH (19:30)
--- NOTE | 2017-09-18 21:44 | MB ---
cc: KATE KRISHNA JENNIFER DATE OF CONSULTATION: 09/18/[address] Mcgrath. DATE OF : [address] Mcgrath requested consultation for Mr. Paul regarding metastatic esophageal cancer. HISTORY OF PRESENT ILLNESS Mr. Paul is a 66-year-old man with history of rheumatoid arthritis, hypertension, chronic alcohol use, COPD, diagnosed with metastatic esophageal cancer. A lung lesion was biopsied to confirm his diagnosis of esophageal cancer. His main presentation in February of 2017 was dysphagia. He was treated with concurrent chemotherapy and radiation to the esophagus to alleviate his symptoms of dysphagia. Since then he has been able to eat and gain some weight. Unfortunately he continues to drink alcohol regularly. He was placed on maintenance therapy with ramucirumab. He was pending restaging evaluation on his last clinic visit. His last dose of ramucirumab was September 11. At that time he was having a cough and respiratory symptoms. He had acute bronchitis. He has had chronic pain in the abdomen for which he is on methadone. He has actually decreased, taking it only once in the morning and his breakthrough medication. Oxycodone is used on a p.r.n. basis. Mr. Paul reports doing well after his last chemotherapy. He has improved from the bronchitis symptoms. He describes pain in the lower abdomen beginning on the . He felt like he was constipated and needed to move his bowels. He restrained but sheila blood and loose bowel movement came out. He was cramping and was quite frightened by the above findings. He presented to the emergency room where he was seen by Dr. Nguyen who subsequently admitted him. Workup included CT scan of the abdomen on 09/17/2017 that showed diffuse thickening of the descending colon with pericolonic inflammatory changes, characteristic of colitis. There is stenosis of the SMA with dense calcification of the distal aorta in the region of the LLOYD. Mass lesions in the lung are smaller. There is a new 1.3 cm hypodense lesion in the left hepatic lobe concerning for metastatic disease. He was seen by gastroenterology and vascular surgery. He is currently on bowel rest with some improvement in his abdominal pain. He denies any nausea at present. Denies any tremulousness. He has no chest pain or shortness of breath, no complaints of cough. He has not eaten since being in the hospital. The rest of his review of systems is negative. PAST MEDICAL HISTORY: 1. 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 2. Rheumatoid arthritis 3. Hypertension 4. Chronic alcohol use. 5. COPD 6. Gastroesophageal reflux 7. Dysphasia. PAST SURGICAL HISTORY 1. Ankle surgery. 2. Port placement 3. Appendectomy 4. Cyst removal nasal cavity. 5. Colonoscopy. ALLERGIES: NO KNOWN DRUG ALLERGIES. FAMILY HISTORY Mother age 83 of an GA. Father is with a history of Parkinson's in Alzheimer's. Paternal grandmother had pancreatic cancer. SOCIAL HISTORY: He is , lives with his . He is retired. He has over 20 pack-year smoking history. He consumes several alcoholic beverages per day 7 days a week. Denies any illicit drug use. CURRENT MEDICATIONS 1. Thiamine. 2. Folate. 3. Theragran M. 4. Multivitamin. 5. Protonix. 6. Dilaudid p.r.n. PHYSICAL EXAMINATION Temperature 97.8 heart rate 98, respiratory rate 16, blood pressure 150/89, saturation 97%. General: Mr. Paul is a slender well-developed man, resting in bed comfortably. HEENT: Pupils are round, reactive to light and accommodation. Oropharynx is dry. Neck: Supple. Left shoulder with some tenderness. Lungs: Clear to auscultation. Cardiovascular: Reveals tachycardia. Abdomen: Flat, some tenderness in the lower abdomen. Extremities: Lower extremities with no edema. Neurologic: Nonfocal. LABORATORY DATA: Significant for a hemoglobin of 13, platelet count 123. PTT mildly prolonged at 52.4 seconds. ASSESSMENT AND PLAN: Mr. Paul is a 66 year-old man with multiple medical problems seen in oncology for metastatic esophageal cancer, receiving palliative chemotherapy with ramucirumab which is a VEGF inhibitor. It affects VEGF pathway as well as decreased angiogenesis. I discussed with Mr. Paul the concern about his atherosclerotic disease is evident that a CT scan and calcifications in aorta and stenosis of the superior mesenteric artery. Perfusion may be hindered if he was dependent on collaterals given the stenotic area. The ramucirumab would prevent new blood vessel growth. On the one hand this is helpful in maintaining control of his disease with minimal toxicity. On the other it makes healing difficult. It also increases the blood pressure. We discussed plans to hold ramucirumab at present. Acute management is being spearheaded by gastroenterology and vascular surgery. He is improved with bowel rest. We can consider some parenteral nutrition if he has prolonged bowel rest. He has a port that can be used. He denies any nausea or vomiting at present. His pain appears to be well-controlled. Regarding efficacy of ramucirumab, his staging evaluation was being coordinated. There is some suggestion of a new liver lesion, however, the lung lesion appears to be improved. We will complete staging evaluation on an outpatient basis to determine the next course of therapy for his metastatic esophageal cancer. He seems to be palliated from the esophagus standpoint since he has been able to swallow and the area looks clear. Mr. Paul's questions were answered to his satisfaction. We will continue to follow him with you. Repeat PT, PTT is ordered to evaluate the coagulopathy seen. Lupus anticoagulant will be checked if his PTT continues to be prolonged. Anticoagulant therapy is deferred in light of the acute bleeding. Will monitor in the next several days. We discussed prevention of deep venous thrombosis. He plans to move his legs and pump his heels to prevent deep venous thrombosis. Kate Krishna MD RAD/JEANINE /7:14 PM /9:12 PM
[2017-09-19] VITALS (7 sets, daily range): BP systolic 144–169; BP diastolic 70–86; PULSE 73–169; RESP 18–20; TEMP 98.1–99.9; O2SAT 97–99
[2017-09-19] MEDS: PANTOPRAZOLE SODIUM 40 MG VIAL IV PUSH SCH (03:37)
[2017-09-19] MEDS: CIPROFLOXACIN 400 MG PREMIX 200 ML IV SCH ×2 (03:37→18:17)
[2017-09-19] MEDS: metroNIDAZOLE 500 MG INJ 100 ML IV SCH ×2 (04:55→14:09)
[2017-09-19 05:14] LABS: AUTOMATED NEUTROPHIL # 7.9 TH/MM3 (1.8-7.7); BASOPHIL % 0.3 % (0.0-2.0); EOSINOPHIL % 0.5 % (0.0-4.0); HEMATOCRIT 35.5 % (39.0-51.0); HEMO FLAGS DIFF FINAL; LYMPH % 9.6 % (9.0-44.0); LYMPHOCYTE # 0.9 TH/MM3 (1.0-4.8); MEAN CELL VOLUME 109.6 FL (80.0-100.0); MEAN CORPUSCULAR HEMOGLOBIN 37.9 PG (27.0-34.0); MEAN CORPUSCULAR HGB CONC 34.6 % (32.0-36.0); MONO % 6.5 % (0.0-8.0); NEUT % 83.1 % (16.0-70.0); PLATELET COUNT 111 TH/MM3 (150-450); RED BLOOD COUNT 3.24 MIL/MM3 (4.50-5.90); RED CELL DISTRIBUTION WIDTH 12.5 % (11.6-17.2); WHITE BLOOD COUNT 9.5 TH/MM3 (4.0-11.0)
[2017-09-19 05:17] LABS: APTT (PATIENT) 32.8 SEC (24.3-30.1); PROTHROMBIN TIME - PATIENT 10.7 SEC (9.8-11.6)
[2017-09-19 05:31] LABS: BICARBONATE 28.6 MEQ/L (21.0-32.0)
[2017-09-19] MEDS: THIAMINE INJ 100 MG in SODIUM CHLORIDE 0.9% INJ 100 ML IV SCH (05:50)
[2017-09-19] MEDS: MULTIVITAMIN INJ 10 ML, FOLIC ACID INJ 1 MG in SODIUM CHLORID 0.9% 500 ML INJ 500 ML IV SCH (06:30)
[2017-09-19] MEDS: DEXTROSE 5% IN WATE 1000ML INJ 1,000 ML IV SCH (08:03)
[2017-09-19] MEDS: HYDROmorphone HCL PF 1 MG/ML VIAL IV PUSH PRN (08:09)
--- NOTE | 2017-09-19 08:28 | HHI.PR ---
Subjective Remarks This is a pleasant 66 y/o male with COPD, hypertension and stage IV esophageal cancer status post radiation and currently undergoing chemotherapy with Ramucirumab presents with one episode of black tarry stool and bright red blood per rectum. The patient reports lower abdominal pain, left greater than right, and a history of constipation prior to the bowel movement that he had yesterday. He is followed by Dr. Corona, CT of the abdomen/pelvis showed diffuse thickening of the descending colon with pericolonic inflammatory changes and fluid characteristic of a nonspecific colitis. There was concern for stenosis of the SMA and dense calcification in the distal aorta in the region of the LLOYD which could limit blood flow. he also has Alcohol abuse history, RA, GERD, 09/18: Seen in his bedroom in the presence of nurse, he will have probable procedure later today. 09/19: Patient consulted by GI specialist with diagnosis of Acute colitis/lower GI bleed, recommended to continue Flagyl/Cipro Flexible Sigmoidoscopy, continue PPIs, Stage IV Esohageal Cancer with disease to the lung and liver, EGD recommended, asked for Vascular Surgery specialit consult, Followed by his Primary patient access specialist Doctor Kanika Corona he is on Palliative Chemotherapy with Ramucirumab, discussed with the patient about the Atherosclerotic disease is evident on CT scan and calcifications in Aorta and stenosis of the superior mesenteric artery, as per Oncology improving lung lesions recommended SCDs for DVT prophylaxis and activity. EGD performed yesterday found Radiation esophagitis midesophagus no biopsy concern for bleeding, Gastritis antrum, Hiatal Hernia, recommended to continue anti-reflux regimen and continue PPI and follow in three months. Status post Flexible Sigmoidoscopy with biopsy found Diverticulosis sigmoid, multiple ulcers in descending colon and sigmoid consistent with ischemic colitis biopsy taken, Internal hemorrhoids, External Hemorrhoids. Colonoscopy in one month as per Doctor Rosa Doss. Vascular telesales specialist following awaiting results of CTA of the Abdomen and Pelvis. Objective Vital Signs Date Time Temp Pulse Resp B/P (MAP) Pulse Ox O2 Delivery O2 Flow Rate FiO2 09/19/17 07:36 98.4 90 18 145/83 (103) 97 09/19/17 05:28 99.9 94 20 144/81 (102) 97 09/19/17 01:12 98.3 99 20 159/86 (110) 98 09/18/17 20:24 98.1 91 20 169/91 (117) 98 09/18/17 20:00 100 09/18/17 17:15 98 16 150/89 (109) 97 Room Air 09/18/17 17:00 106 16 158/92 (114) 97 Room Air 09/18/17 16:47 98 09/18/17 16:45 97.8 116 16 147/91 (109) 97 Room Air 09/18/17 16:18 97.3 100 18 165/91 (115) 98 09/18/17 12:11 98.0 83 18 158/93 (114) 98 I/O 09/18/17 09/18/17 09/18/17 09/19/17 09/19/17 09/19/17 07:00 15:00 23:00 07:00 15:00 23:00 Intake Total 401 ml 100 ml 400 ml 789 ml Output Total 375 ml 200 ml Balance 26 ml -100 ml 400 ml 789 ml Intake IV Total 401 ml 100 ml 789 ml Other 400 ml Output Urine Total 375 ml 200 ml # Voids 1 1 2 # Bowel Movements 1 1 Result Diagram: 09/19/17 0455 09/19/17 0455 Imaging Last Impressions Abdomen/Pelvis CT 09/17/171821 Signed Impressions: Service Date/Time: Sunday, September 17, 2017 20:38 - CONCLUSION: 1. Diffuse thickening of the descending colon with pericolonic inflammatory changes and fluid characteristic of a nonspecific colitis. 2. However, in concern there may be a nonostial stenosis of the SMA and there is dense calcification of the distal aorta in the region of the LLOYD with marked narrowing of the aortic and left iliac luminal diameter. The combination could limit flow to the LLOYD distribution and explain current radiographic findings. I would recommend a CTA of the abdominal vasculature sometime tomorrow (patient received contrast for the current exam) for further evaluation of the regional vasculature. 3. Mass lesions in the lung bases are smaller when compared to the prior exam characteristic of a favorable response to therapy. 4. However, there is a new 1.3 cm hypodense lesion in the left hepatic lobe concerning for a metastatic deposit. 5. Stable hydropic configuration of the gallbladder with distention of the CBD measuring 1.1 cm at the pancreatic head. Vicente Paula MD Procedures EGD performed yesterday found Radiation esophagitis midesophagus no biopsy concern for bleeding, Gastritis antrum, Hiatal Hernia, recommended to continue anti-reflux regimen and continue PPI and follow in three months. Status post Flexible Sigmoidoscopy with biopsy found Diverticulosis sigmoid, multiple ulcers in descending colon and sigmoid consistent with ischemic colitis biopsy taken, Internal hemorrhoids, External Hemorrhoids. Colonoscopy in one month as per Doctor Rosa Doss. Other Results Laboratory Tests Test 09/17/17 18:40 09/17/17 20:10 09/19/17 04:55 Lactic Acid Level 1.9 mmol/L Blood Urea Nitrogen 14 MG/DL 8 MG/DL Creatinine 0.75 MG/DL 0.46 MG/DL Random Glucose 117 MG/DL 106 MG/DL Total Protein 7.3 GM/DL Albumin 3.6 GM/DL Calcium Level 9.0 MG/DL 8.0 MG/DL Alkaline Phosphatase 91 U/L Aspartate Amino Transf (AST/SGOT) 138 U/L Alanine Aminotransferase (ALT/SGPT) 69 U/L Total Bilirubin 0.7 MG/DL Sodium Level 132 MEQ/L 131 MEQ/L Potassium Level 3.9 MEQ/L 3.0 MEQ/L Chloride Level 95 MEQ/L 97 MEQ/L Carbon Dioxide Level 27.9 MEQ/L 28.6 MEQ/L Urine Color YELLOW Urine Turbidity CLEAR Urine pH 8.0 Urine Specific Rittman 1.024 Urine Protein TRACE mg/dL Urine Glucose (UA) NEG mg/dL Urine Ketones 40 mg/dL Urine Occult Blood NEG Urine Nitrite NEG Urine Bilirubin NEG Urine Urobilinogen 4.0 MG/DL Urine Leukocyte Esterase NEG Urine RBC 1 /hpf Urine WBC 3 /hpf Urine Squamous Epithelial Cells <1 /hpf Urine Mucus FEW /lpf Microscopic Urinalysis Comment CULT NOT INDICATED White Blood Count 9.5 TH/MM3 Red Blood Count 3.24 MIL/MM3 Hemoglobin 12.3 GM/DL Hematocrit 35.5 % Mean Corpuscular Volume 109.6 FL Mean Corpuscular Hemoglobin 37.9 PG Mean Corpuscular Hemoglobin Concent 34.6 % Red Cell Distribution Width 12.5 % Platelet Count 111 TH/MM3 Mean Platelet Volume 6.9 FL Neutrophils (%) (Auto) 83.1 % Lymphocytes (%) (Auto) 9.6 % Monocytes (%) (Auto) 6.5 % Eosinophils (%) (Auto) 0.5 % Basophils (%) (Auto) 0.3 % Neutrophils # (Auto) 7.9 TH/MM3 Lymphocytes # (Auto) 0.9 TH/MM3 Monocytes # (Auto) 0.6 TH/MM3 Eosinophils # (Auto) 0.0 TH/MM3 Basophils # (Auto) 0.0 TH/MM3 CBC Comment DIFF FINAL Differential Comment Prothrombin Time 10.7 SEC Prothromb Time International Ratio 1.0 RATIO Activated Partial Thromboplast Time 32.8 SEC Anion Gap 5 MEQ/L Estimat Glomerular Filtration Rate 184 ML/MIN Objective Remarks GENERAL: No acute distress. SKIN: No rashes, ecchymoses or lesions. HEAD: Atraumatic. Normocephalic. EYES: Pupils equal round and reactive. Extraocular motions intact. No scleral icterus. No injection or drainage. NECK: supple, no JVD no lymphadenopathy. CARDIOVASCULAR: Regular rate and rhythm without murmurs, gallops, or rubs. RESPIRATORY: Clear to auscultation. GASTROINTESTINAL: Abdomen sof, nondistended. MUSCULOSKELETAL: Extremities without clubbing, cyanosis, or edema. NEUROLOGICAL: Awake and alert. No focal deficits. Medications and IVs Current Medications Medications (Trade) Dose Ordered Sig/Dana Route Start Time Stop Time Status Last Admin (NS Flush) 2 ml UNSCH PRN IV FLUSH 09/18/17 00:00 (NS Flush) 2 ml BID IV FLUSH 09/18/17 09:00 09/18/17 21:35 (Zofran Inj) 4 mg Q6H PRN IVP 09/18/17 00:00 (Narcan Inj) 0.4 mg UNSCH PRN IV PUSH 09/18/17 00:00 (Dilaudid Pf Inj) 0.5 mg Q4H PRN IV PUSH 09/18/17 00:15 09/19/17 08:09 (Folate) 1 mg DAILY PO 09/18/17 09:00 09/23/17 08:59 Future Hold (Theragran M Tab) 1 tab DAILY PO 09/18/17 09:00 09/23/17 08:59 Future Hold (Romazicon Inj) 0.2 mg Q1M PRN IV PUSH 09/18/17 02:30 (Ativan) 1 mg Q4H PRN PO 09/18/17 02:30 (Ativan Inj) 1 mg Q4H PRN IV PUSH 09/18/17 02:30 09/19/17 00:36 (Ativan) 2 mg Q2H PRN PO 09/18/17 02:30 (Ativan Inj) 2 mg Q2H PRN IV PUSH 09/18/17 02:30 (Ativan Inj) 2 mg Q1H PRN IV PUSH 09/18/17 02:30 (Ativan Inj) 2 mg Q15M PRN IV PUSH 09/18/17 02:30 (Protonix Inj) 40 mg Q24H IV PUSH 09/18/17 04:15 09/19/17 03:37 Ciprofloxacin/ Dextrose 200 ml @ 200 mls/hr Q12H IV 09/18/17 04:15 09/19/17 03:37 Metronidazole 100 ml @ 100 mls/hr Q8H IV 09/18/17 05:30 09/19/17 04:55 Multivitamins 10 ml/Folic Acid 1 mg/Sodium Chloride 510.2 ml @ 125 mls/hr Q24H IV 09/18/17 06:00 09/23/17 05:59 09/19/17 06:30 Thiamine HCl 100 mg/Sodium Chloride 101 ml @ 100 mls/hr Q24H IV 09/18/17 06:00 09/21/17 05:59 09/19/17 05:50 (Vitamin B1) 100 mg DAILY PO 09/21/17 09:00 Miscellaneous Information ALL NURSING DEPARTME... UNSCH PRN .XX 09/18/17 16:45 09/19/17 16:44 Dextrose 1,000 ml @ 50 mls/hr Q20H IV 09/19/17 07:00 09/19/17 08:03 A/P Assessment and Plan 66-year-old male with a past medical history significant for stage IV esophageal cancer, currently undergoing immunotherapy, COPD, alcohol abuse, and hypertension presents with black stools and bright red blood per rectum with lower abdominal pain. 1. Lower GI bleed Patient consulted by GI specialist with diagnosis of Acute colitis/lower GI bleed, recommended to continue Flagyl/Cipro Flexible Sigmoidoscopy, continue PPIs, Stage IV Esohageal Cancer with disease to the lung and liver, EGD recommended, asked for Vascular Surgery specialit consult, Followed by his Primary patient access specialist Doctor Kanika Corona he is on Palliative Chemotherapy with Ramucirumab, discussed with the patient about the Atherosclerotic disease is evident on CT scan and calcifications in Aorta and stenosis of the superior mesenteric artery, as per Oncology improving lung lesions recommended SCDs for DVT prophylaxis and activity. EGD performed yesterday found Radiation esophagitis midesophagus no biopsy concern for bleeding, Gastritis antrum, Hiatal Hernia, recommended to continue anti-reflux regimen and continue PPI and follow in three months. Status post Flexible Sigmoidoscopy with biopsy found Diverticulosis sigmoid, multiple ulcers in descending colon and sigmoid consistent with ischemic colitis biopsy taken, Internal hemorrhoids , External Hemorrhoids. Colonoscopy in one month as per Doctor Rosa Doss. Vascular telesales specialist following awaiting results of CTA of the Abdomen and Pelvis. as per patient access specialist to hold Ramucirumab. 2. Abdominal pain/colitis CT of the abdomen/pelvis showed nonspecific colitis of the descending colon with concern for stenosis of the SMA and dense calcification in the distal aorta in the region of the LLOYD CTA of the abdomen/pelvis pending Cipro/Flagyl Dilaudid for pain, GI specialist following. 3. Alcohol abuse Patient drinks approximately one sixpack per day CIWA protocol Folate/Thiamine 4. Tobacco dependence Strongly recommended to stop smoking, continue Bronchodilator, Mucolytic and incentive spirometry DVT prophylaxis SCDs Discharge Planning Once cleared by specialists. Trevon Worley MD Sep 19, 2017 08:28
[2017-09-19] MEDS: SODIUM CHLORIDE 0.9% FLUSH 10 ML FLUSH IV FLUSH SCH ×2 (09:00→19:38)
[2017-09-19 09:03] LABS: MAGNESIUM 1.8 MG/DL (1.5-2.5)
[2017-09-19] MEDS: POTASSIUM CHLOR 20 MEQ PREMIX 100 ML IV SCH ×2 (10:00→14:09)
--- NOTE | 2017-09-19 11:27 | PD.ONC.PN ---
Subjective Subjective Remarks Afebrile overnight. Patient states he continues to have pain in back, but reports abdominal pain is improved. Hoping to go home soon, once pain is controlled. Objective Data Date Time Temp Pulse Resp B/P (MAP) Pulse Ox O2 Delivery O2 Flow Rate FiO2 09/19/17 08:39 14 09/19/17 08:00 169 09/19/17 07:36 98.4 90 18 145/83 (103) 97 09/19/17 05:28 99.9 94 20 144/81 (102) 97 09/19/17 01:12 98.3 99 20 159/86 (110) 98 09/18/17 20:24 98.1 91 20 169/91 (117) 98 09/18/17 20:00 100 09/18/17 17:15 98 16 150/89 (109) 97 Room Air 09/18/17 17:00 106 16 158/92 (114) 97 Room Air 09/18/17 16:47 98 09/18/17 16:45 97.8 116 16 147/91 (109) 97 Room Air 09/18/17 16:18 97.3 100 18 165/91 (115) 98 09/18/17 12:11 98.0 83 18 158/93 (114) 98 09/19/17 09/19/17 09/19/17 07:00 15:00 23:00 Intake Total 789 ml Balance 789 ml Result Diagram: 09/19/17 0455 09/19/17 0455 Laboratory Results Laboratory Tests Test 09/18/17 12:55 09/18/17 18:17 09/19/17 04:55 Hemoglobin 13.2 GM/DL 13.1 GM/DL 12.3 GM/DL Hematocrit 38.4 % 37.0 % 35.5 % White Blood Count 9.5 TH/MM3 Red Blood Count 3.24 MIL/MM3 Mean Corpuscular Volume 109.6 FL Mean Corpuscular Hemoglobin 37.9 PG Mean Corpuscular Hemoglobin Concent 34.6 % Red Cell Distribution Width 12.5 % Platelet Count 111 TH/MM3 Mean Platelet Volume 6.9 FL Neutrophils (%) (Auto) 83.1 % Lymphocytes (%) (Auto) 9.6 % Monocytes (%) (Auto) 6.5 % Eosinophils (%) (Auto) 0.5 % Basophils (%) (Auto) 0.3 % Neutrophils # (Auto) 7.9 TH/MM3 Lymphocytes # (Auto) 0.9 TH/MM3 Monocytes # (Auto) 0.6 TH/MM3 Eosinophils # (Auto) 0.0 TH/MM3 Basophils # (Auto) 0.0 TH/MM3 CBC Comment DIFF FINAL Differential Comment Prothrombin Time 10.7 SEC Prothromb Time International Ratio 1.0 RATIO Activated Partial Thromboplast Time 32.8 SEC Blood Urea Nitrogen 8 MG/DL Creatinine 0.46 MG/DL Random Glucose 106 MG/DL Calcium Level 8.0 MG/DL Sodium Level 131 MEQ/L Potassium Level 3.0 MEQ/L Chloride Level 97 MEQ/L Carbon Dioxide Level 28.6 MEQ/L Anion Gap 5 MEQ/L Estimat Glomerular Filtration Rate 184 ML/MIN Phosphorus Level 1.8 MG/DL Magnesium Level 1.8 MG/DL Administered Medications Medications (Trade) Dose Ordered Sig/Dana Route PRN Reason Start Time Stop Time Status Last Admin Dose Admin Sodium Chloride (NS Flush) 2 ml BID IV FLUSH 09/18/17 09:00 09/18/17 21:35 Hydromorphone HCl (Dilaudid Pf Inj) 0.5 mg Q4H PRN IV PUSH pain > 4 09/18/17 00:15 09/19/17 08:09 Lorazepam (Ativan Inj) 1 mg Q4H PRN IV PUSH CIWA 8 - 10 09/18/17 02:30 09/19/17 00:36 Pantoprazole Sodium (Protonix Inj) 40 mg Q24H IV PUSH 09/18/17 04:15 09/19/17 03:37 Ciprofloxacin/ Dextrose 200 ml @ 200 mls/hr Q12H IV 09/18/17 04:15 09/19/17 03:37 Metronidazole 100 ml @ 100 mls/hr Q8H IV 09/18/17 05:30 09/19/17 04:55 Multivitamins 10 ml/Folic Acid 1 mg/Sodium Chloride 510.2 ml @ 125 mls/hr Q24H IV 09/18/17 06:00 09/23/17 05:59 09/19/17 06:30 Thiamine HCl 100 mg/Sodium Chloride 101 ml @ 100 mls/hr Q24H IV 09/18/17 06:00 09/21/17 05:59 09/19/17 05:50 Dextrose 1,000 ml @ 50 mls/hr Q20H IV 09/19/17 07:00 09/19/17 08:03 Potassium Chloride 100 ml @ 50 mls/hr Q2H IV 09/19/17 09:00 09/19/17 12:59 09/19/17 10:00 Objective Remarks GENERAL: Middle aged male sitting up in bed in nad. SKIN: Warm and dry. HEAD: Normocephalic. EYES: No injection or drainage. NECK: Supple, trachea midline. CARDIOVASCULAR: Regular rate and rhythm RESPIRATORY: Breath sounds equal bilaterally. No accessory muscle use. GASTROINTESTINAL: Abdomen mildly distended, non-tender to palpation. EXTREMITIES: No cyanosis NEUROLOGICAL: No obvious focal deficit. Awake, alert, and oriented x3. 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 --lung lesion was biopsied to confirm his diagnosis of esophageal cancer. --treated with concurrent chemotherapy and radiation to the esophagus to alleviate his symptoms of dysphagia. --placed on maintenance therapy with ramucirumab (VEG-F inhibitor). pending restaging evaluation on his last clinic visit. --last dose of ramucirumab was September 11. (2) Abdominal pain ICD Codes: R10.9 - Unspecified abdominal pain Plan: --on methadone with dilaudid p.r.n. --CT abdomen, 09/17/2017 that showed diffuse thickening of the descending colon with pericolonic inflammatory changes, characteristic of colitis. +stenosis of the SMA with dense calcification of the distal aorta in the region of the LLOYD. Mass lesions in the lung are smaller. +new 1.3 cm hypodense lesion in the left hepatic lobe concerning for metastatic disease. Assessment 66y/o male with metastatic esophageal cancer. history of rheumatoid arthritis, hypertension, chronic alcohol use, COPD Plan 1. increase Dilaudid to q 3 hours. 2. monitor CBC 3. await CTA Attending Statement The exam, history, and the medical decision-making described in the above note were completed with the assistance of the mid-level provider. I reviewed and agree with the findings presented. I attest that I had a [id number] encounter with the patient on the same day, and personally performed and documented my assessment and findings in the medical record. Discussed w/ Dr. Doss GI findings. Some suggestion of response to Ramicirumab but will hold currently. Stenosis of celiac trunk may be amenable to treatment, unfortunately pt continue to smoke. Continue support. No transfusion needed for now. Problem Qualifiers (1) Abdominal pain: Qualified Codes: R10.32 - Left lower quadrant pain Tracy Barahona Sep 19, 2017 11:27 Kanika Corona MD Sep 19, 2017 19:08
--- NOTE | 2017-09-19 11:58 | HHI.GIFU ---
Subjective Remarks Resting in bed. C/O left shoulder pain (arthritic). States abdominal pain has actually improved. No bleeding so far today. Has not gone down for CTA yet. (Sugey Hernández) Objective Vitals I&O Vital Signs Date Time Temp Pulse Resp B/P (MAP) Pulse Ox O2 Delivery O2 Flow Rate FiO2 09/19/17 11:44 98.4 87 18 148/82 (104) 98 09/19/17 08:39 14 09/19/17 08:00 169 09/19/17 07:36 98.4 90 18 145/83 (103) 97 09/19/17 05:28 99.9 94 20 144/81 (102) 97 09/19/17 01:12 98.3 99 20 159/86 (110) 98 09/18/17 20:24 98.1 91 20 169/91 (117) 98 09/18/17 20:00 100 09/18/17 17:15 98 16 150/89 (109) 97 Room Air 09/18/17 17:00 106 16 158/92 (114) 97 Room Air 09/18/17 16:47 98 09/18/17 16:45 97.8 116 16 147/91 (109) 97 Room Air 09/18/17 16:18 97.3 100 18 165/91 (115) 98 09/18/17 12:11 98.0 83 18 158/93 (114) 98 I/O 09/18/17 09/18/17 09/18/17 09/19/17 09/19/17 09/19/17 07:00 15:00 23:00 07:00 15:00 23:00 Intake Total 401 ml 100 ml 400 ml 789 ml Output Total 375 ml 200 ml Balance 26 ml -100 ml 400 ml 789 ml Intake IV Total 401 ml 100 ml 789 ml Other 400 ml Output Urine Total 375 ml 200 ml # Voids 1 1 2 1 # Bowel Movements 1 1 Laboratory Laboratory Tests Test 09/18/17 12:55 09/18/17 18:17 09/19/17 04:55 Hemoglobin 13.2 13.1 12.3 Hematocrit 38.4 37.0 35.5 White Blood Count 9.5 Red Blood Count 3.24 Mean Corpuscular Volume 109.6 Mean Corpuscular Hemoglobin 37.9 Mean Corpuscular Hemoglobin Concent 34.6 Red Cell Distribution Width 12.5 Platelet Count 111 Mean Platelet Volume 6.9 Neutrophils (%) (Auto) 83.1 Lymphocytes (%) (Auto) 9.6 Monocytes (%) (Auto) 6.5 Eosinophils (%) (Auto) 0.5 Basophils (%) (Auto) 0.3 Neutrophils # (Auto) 7.9 Lymphocytes # (Auto) 0.9 Monocytes # (Auto) 0.6 Eosinophils # (Auto) 0.0 Basophils # (Auto) 0.0 CBC Comment DIFF FINAL Differential Comment Prothrombin Time 10.7 Prothromb Time International Ratio 1.0 Activated Partial Thromboplast Time 32.8 Blood Urea Nitrogen 8 Creatinine 0.46 Random Glucose 106 Calcium Level 8.0 Sodium Level 131 Potassium Level 3.0 Chloride Level 97 Carbon Dioxide Level 28.6 Anion Gap 5 Estimat Glomerular Filtration Rate 184 Phosphorus Level 1.8 Magnesium Level 1.8 Imaging Last Impressions Abdomen/Pelvis CT 09/17/17 3822 Signed Impressions: Service Date/Time: Sunday, September 17, 2017 20:38 - CONCLUSION: 1. Diffuse thickening of the descending colon with pericolonic inflammatory changes and fluid characteristic of a nonspecific colitis. 2. However, in concern there may be a nonostial stenosis of the SMA and there is dense calcification of the distal aorta in the region of the LLOYD with marked narrowing of the aortic and left iliac luminal diameter. The combination could limit flow to the LLOYD distribution and explain current radiographic findings. I would recommend a CTA of the abdominal vasculature sometime tomorrow (patient received contrast for the current exam) for further evaluation of the regional vasculature. 3. Mass lesions in the lung bases are smaller when compared to the prior exam characteristic of a favorable response to therapy. 4. However, there is a new 1.3 cm hypodense lesion in the left hepatic lobe concerning for a metastatic deposit. 5. Stable hydropic configuration of the gallbladder with distention of the CBD measuring 1.1 cm at the pancreatic head. Vicente Paula MD Physical Exam HEENT: Normocephalic; atraumatic; no jaundice. CHEST: CTA CARDIAC: RRR ABDOMEN: Soft, nondistended,mild diffuse tenderness; no hepatosplenomegaly; bowel sounds are present in all four quadrants. EXTREMITIES: No clubbing, cyanosis, or edema. SKIN: Normal; no rash; no jaundice. [employer] BILINGUAL: No focal deficits; alert and oriented times three. (EdgarSugey Burris [facility]) Assessment and Plan Plan ASSESSMENT: - Acute Colitis with abdominal pain and lower GI bleeding. CT Scan abdomen and pelvis (09/17/17)---> diffuse thickening of the descending colon with pericolonic inflammatory changes and fluid characteristic of a nonspecific colitis. However, in concern there may be a non-ostial stenosis of the SMA and there is dense calcification of the distal aorta in the region of the LLOYD with market narrowing of the aortic and left iliac luminal diameter. The combination could limit flow to the LLOYD distribution and explain current radiographic findings. I would recommend a CTA of the abdominal vasculature sometime tomorrow (patient received contrast for the current exam) for further evaluation of the regional vasculature. Mass lesions in the lung bases are smaller when compared to the prior exam characteristic of a favorable response to therapy. However there is a new 1.3 cm hypodense lesion in the left hepatic lobe concerning for medical static deposit. Stable hydropic configuration of the gallbladder with distention of the common bile duct measuring 1.1 cm at the pancreatic head. S/P Flexible sigmoidoscopy (09/18/17)---> 1. Diverticulosis sigmoid, descending multiple ulcers in descending, sigmoid consistent with ischemic colitis-biopsy very friable mucosa-2. Retroflexed views revealed internal hemorrhoid 3. Revealed external hemorrhoids. Pathology pending. CTA pending. Vascular surgery following. Pain improved. No bleeding today. Stool studies ordered. Cipro/Flagyl. - Lower GIB. S/P sigmoidoscopy as above, no active bleeding at this time. - Odynophagia, Dysphagia. Intermittent, improved after his chemo and radiation , but still having intermittent symptoms. S/P EGD (09/18/17)---> 1. Radiation esophagitis midesophagus,no biopsy concern for bleeding gastritis antrum 2. Retroflexed views revealed a hiatal hernia. PPI. Will need repeat EGD 3 months - Abnormal imaging abdomen and pelvis, raising suspicion for ischemic colitis. CT as above. Await CTA. Vascular surgery following. - Chronic constipation. Aggravated by methadone, hydrocodone use. Takes prune juice. - GERD. PPI - N/V, Wt. Loss. Intermittent. Has lost 20 lbs, but states this has been stable more recently. - Stage IV Esophageal cancer with disease to the lung and liver. Dx March 2017. S/P Palliative Chemotherapy, Radiation. Now on immunotherapy with Ramucirumab, which he last took 6-7 days ago. He is followed by Dr. Corona for oncology. - Leukocytosis. Improved. - COPD, HTN, RA, per attending. PLAN: - NPO for now - Await pathology - Await CTA - Vascular surgery following - Stool for CDiff, O&P, Giardia, C/S, WBC - Cont. Cipro/Flagyl - Cont. Protonix 40mg IV daily - Monitor H&H - Transfuse as necessary - Monitor labs - Supportive care - Further recommendations to follow based on results of above - EGD 3 months - Colonoscopy 1 month - Pt seen and examined by Dr. Doss and myself and this note is written on her behalf (Sugey Hernández) Physician Comments advance diet cta noted-awaiting vascular surgery eval (Rosa Doss MD) Sugey Hernández Sep 19, 2017 11:58 Rosa Doss MD Sep 19, 2017 19:31
[2017-09-19] MEDS ORDERED: IOHEXOL 350 MG/ML 10 ML VIAL (for RAD DIAG) IVCONTRAST ONE ×2 (13:26→14:49)
[2017-09-19] MEDS: HYDROmorphone HCL PF 0.5 MG/0.5 ML SYRINGE IV PUSH PRN ×2 (14:06→21:49)
[2017-09-19] MEDS: LORazepam 1 MG TAB PO PRN ×2 (15:21→18:23)
[2017-09-19] MEDS: MAGNESIUM SULFATE 1 GM PREMIX 100 ML IV SCH ×2 (15:45→18:24)
[2017-09-19] MEDS ORDERED: POTASSIUM PHOSPHATE INJ 15 MMOL in SODIUM CHLORIDE 0.9% INJ 150 ML IV ONE (17:00)
--- NOTE | 2017-09-19 17:23 | RADRPT ---
EXAM DATE/TIME: 09/19/2017 12:48 [place] COMPARISON: CT ABDOMEN & PELVIS W CONTRAST, September 17, 2017, 20:38. CT THORAX W CONTRAST, March 12, 2017, 19:11. INDICATIONS : Possible ischemic colitis. IV CONTRAST: 100 cc Omnipaque 350 (iohexol) IV ORAL CONTRAST: No oral contrast ingested. RADIATION DOSE: 9.38 CTDIvol (mGy) MEDICAL HISTORY : Cardiovascular disease. Carcinoma, esophageal. Carcinoma, lung. SURGICAL HISTORY : None. ENCOUNTER: Initial ACUITY: 1 day PAIN SCALE: 0/10 LOCATION: abdomen TECHNIQUE: Volumetric scanning was performed using a multi-row detector CT scanner. The data was post processed with a variety of visualization algorithms including full volume maximum intensity projection, multi -planar sliding thin slab reformation, curved planar reformation, and surface rendering techniques. Using automated exposure control and adjustment of the mA and/or kV according to patient size, radiat ion dose was kept as low as reasonably achievable to obtain optimal diagnostic quality images. DICOM format image data is available electronically for review and comparison. FINDINGS: The upper abdominal aorta is notable for patchy mild plaquing and intimal calcification. There is mod erate eccentric disease involving the proximal SMA which produces slightly less than 50% stenotic jake rowing. The celiac is widely patent. The renal arteries are widely patent. The LLOYD is patent. At end just below the origin of the LLOYD, there is severe exuberant calcific plaque within the aortic lumen w hich produces greater than 70% aortic luminal stenosis. There is near occlusive exuberant calcific pl aquing involving the proximal left common iliac artery. There is moderate calcific plaquing present i n the common femoral arteries bilaterally. The visualized proximal thigh vessels are intact. The hypo gastrics are patent. Elsewhere on the exam, note is again made of small lung base nodules. Liver mass noted. There is smal l volume ascites in the dependent pelvis which was not present previously. CONCLUSION: Less than 50% proximal SMA stenosis. High grade distal aortic stenosis and critical proximal left iliac stenosis. Small volume ascites in the pelvis which is new. Kvng Lara MD on September 19, 2017 at 17:11 Board Certified Radiologist. This report was verified electronically.
[2017-09-20] VITALS: BP 143/76; PULSE 76; RESP 18; TEMP 98.2; O2SAT 97
[2017-09-20] MEDS: metroNIDAZOLE 500 MG INJ 100 ML IV SCH ×4 (00:08→23:43)
[2017-09-20] MEDS: HYDROmorphone HCL PF 0.5 MG/0.5 ML SYRINGE IV PUSH PRN ×4 (03:13→22:24)
[2017-09-20 04:00] VITALS: BP 137/81; PULSE 76; RESP 18; TEMP 97.8; O2SAT 99
[2017-09-20] MEDS: PANTOPRAZOLE SODIUM 40 MG VIAL IV PUSH SCH (04:03)
[2017-09-20] MEDS: DEXTROSE 5% IN WATE 1000ML INJ 1,000 ML IV SCH (04:07)
[2017-09-20] MEDS: CIPROFLOXACIN 400 MG PREMIX 200 ML IV SCH ×2 (04:26→18:42)
[2017-09-20 07:19] LABS: BASOPHIL % 0.1 % (0.0-2.0); EOSINOPHIL # 0.1 TH/MM3 (0-0.4); EOSINOPHIL % 1.5 % (0.0-4.0); HEMATOCRIT 29.2 % (39.0-51.0); LYMPH % 12.2 % (9.0-44.0); LYMPHOCYTE # 0.5 TH/MM3 (1.0-4.8); MEAN CELL VOLUME 128.6 FL (80.0-100.0); MEAN CORPUSCULAR HEMOGLOBIN 39.2 PG (27.0-34.0); MEAN CORPUSCULAR HGB CONC 30.5 % (32.0-36.0); NEUT % 76.2 % (16.0-70.0); PLATELET COUNT 74 TH/MM3 (150-450); RED BLOOD COUNT 2.27 MIL/MM3 (4.50-5.90); RED CELL DISTRIBUTION WIDTH 14.3 % (11.6-17.2)
[2017-09-20 07:42] LABS: BICARBONATE 25.4 MEQ/L (21.0-32.0)
[2017-09-20 07:44] LABS: HEMO FLAGS AUTO DIFF
[2017-09-20 08:00] VITALS: PULSE 81; PULSE 85
--- NOTE | 2017-09-20 08:19 | HHI.PR ---
Subjective Remarks This is a pleasant 66 y/o male with COPD, hypertension and stage IV esophageal cancer status post radiation and currently undergoing chemotherapy with Ramucirumab presents with one episode of black tarry stool and bright red blood per rectum. The patient reports lower abdominal pain, left greater than right, and a history of constipation prior to the bowel movement that he had yesterday. He is followed by Dr. Corona, CT of the abdomen/pelvis showed diffuse thickening of the descending colon with pericolonic inflammatory changes and fluid characteristic of a nonspecific colitis. There was concern for stenosis of the SMA and dense calcification in the distal aorta in the region of the LLOYD which could limit blood flow. he also has Alcohol abuse history, RA, GERD, 09/18: Seen in his bedroom in the presence of nurse, he will have probable procedure later today. 09/19: Patient consulted by GI specialist with diagnosis of Acute colitis/lower GI bleed, recommended to continue Flagyl/Cipro Flexible Sigmoidoscopy, continue PPIs, Stage IV Esohageal Cancer with disease to the lung and liver, EGD recommended, asked for Vascular Surgery specialit consult, Followed by his Primary technical specialist cytology Doctor Kanika Corona he is on Palliative Chemotherapy with Ramucirumab, discussed with the patient about the Atherosclerotic disease is evident on CT scan and calcifications in Aorta and stenosis of the superior mesenteric artery, as per Oncology improving lung lesions recommended SCDs for DVT prophylaxis and activity. EGD performed yesterday found Radiation esophagitis midesophagus no biopsy concern for bleeding, Gastritis antrum, Hiatal Hernia, recommended to continue anti-reflux regimen and continue PPI and follow in three months. Status post Flexible Sigmoidoscopy with biopsy found Diverticulosis sigmoid, multiple ulcers in descending colon and sigmoid consistent with ischemic colitis biopsy taken, Internal hemorrhoids, External Hemorrhoids. Colonoscopy in one month as per Doctor Rosa Doss. Vascular retail performance specialist following awaiting results of CTA of the Abdomen and Pelvis. 09/20: has thrombocytopenia, and worsened Anemia Hemoglobin 8.9 in am today, Vascular surgery discussed findings on CTA with patient and recommended follow up as outpatient and signed off the case, okay to discharge, awaiting final recommendations by GI specialist. No nausea, vomit or diarrhea. Objective Vital Signs Date Time Temp Pulse Resp B/P (MAP) Pulse Ox O2 Delivery O2 Flow Rate FiO2 09/20/17 04:00 97.8 76 18 137/81 (99) 99 09/20/17 00:00 98.2 76 18 143/76 (98) 97 09/19/17 20:00 98.7 79 18 169/86 (113) 98 09/19/17 16:04 98.1 73 18 146/70 (95) 99 09/19/17 11:44 98.4 87 18 148/82 (104) 98 09/19/17 08:39 14 I/O 09/19/17 09/19/17 09/19/17 09/20/17 09/20/17 09/20/17 07:00 15:00 23:00 07:00 15:00 23:00 Intake Total 789 ml 100 ml Output Total 250 ml 300 ml Balance 789 ml -250 ml -200 ml Intake IV Total 789 ml 100 ml Output Urine Total 250 ml 300 ml # Voids 2 1 3 # Bowel Movements 1 Result Diagram: 09/20/17 0655 09/20/17 0655 Imaging Last Impressions Abdomen/Pelvis CT 09/19/17 0000 Signed Impressions: Service Date/Time: Sunday, September 19, 2017 12:48 - CONCLUSION: Less than 50%% proximal SMA stenosis. High grade distal aortic stenosis and critical proximal left iliac stenosis. Small volume ascites in the pelvis which is new. Kvng Lara MD Procedures EGD performed yesterday found Radiation esophagitis midesophagus no biopsy concern for bleeding, Gastritis antrum, Hiatal Hernia, recommended to continue anti-reflux regimen and continue PPI and follow in three months. Status post Flexible Sigmoidoscopy with biopsy found Diverticulosis sigmoid, multiple ulcers in descending colon and sigmoid consistent with ischemic colitis biopsy taken, Internal hemorrhoids, External Hemorrhoids. Colonoscopy in one month as per Doctor Rosa Dsos. Other Results Laboratory Tests Test 09/17/17 18:40 09/17/17 20:10 09/19/17 04:55 09/20/17 06:55 Lactic Acid Level 1.9 mmol/L Blood Urea Nitrogen 14 MG/DL 7 MG/DL Creatinine 0.75 MG/DL 0.51 MG/DL Random Glucose 117 MG/DL 136 MG/DL Total Protein 7.3 GM/DL Albumin 3.6 GM/DL Calcium Level 9.0 MG/DL 7.8 MG/DL Alkaline Phosphatase 91 U/L Aspartate Amino Transf (AST/SGOT) 138 U/L Alanine Aminotransferase (ALT/SGPT) 69 U/L Total Bilirubin 0.7 MG/DL Sodium Level 132 MEQ/L 129 MEQ/L Potassium Level 3.9 MEQ/L 3.0 MEQ/L Chloride Level 95 MEQ/L 95 MEQ/L Carbon Dioxide Level 27.9 MEQ/L 25.4 MEQ/L Urine Color YELLOW Urine Turbidity CLEAR Urine pH 8.0 Urine Specific [place] 1.024 Urine Protein TRACE mg/dL Urine Glucose (UA) NEG mg/dL Urine Ketones 40 mg/dL Urine Occult Blood NEG Urine Nitrite NEG Urine Bilirubin NEG Urine Urobilinogen 4.0 MG/DL Urine Leukocyte Esterase NEG Urine RBC 1 /hpf Urine WBC 3 /hpf Urine Squamous Epithelial Cells <1 /hpf Urine Mucus FEW /lpf Microscopic Urinalysis Comment CULT NOT INDICATED Prothrombin Time 10.7 SEC Prothromb Time International Ratio 1.0 RATIO Activated Partial Thromboplast Time 32.8 SEC Magnesium Level 1.8 MG/DL White Blood Count 4.0 TH/MM3 Red Blood Count 2.27 MIL/MM3 Hemoglobin 8.9 GM/DL Hematocrit 29.2 % Mean Corpuscular Volume 128.6 FL Mean Corpuscular Hemoglobin 39.2 PG Mean Corpuscular Hemoglobin Concent 30.5 % Red Cell Distribution Width 14.3 % Platelet Count 74 TH/MM3 Mean Platelet Volume 7.4 FL Neutrophils (%) (Auto) 76.2 % Lymphocytes (%) (Auto) 12.2 % Monocytes (%) (Auto) 10.0 % Eosinophils (%) (Auto) 1.5 % Basophils (%) (Auto) 0.1 % Neutrophils # (Auto) 3.0 TH/MM3 Lymphocytes # (Auto) 0.5 TH/MM3 Monocytes # (Auto) 0.4 TH/MM3 Eosinophils # (Auto) 0.1 TH/MM3 Basophils # (Auto) 0.0 TH/MM3 CBC Comment AUTO DIFF Phosphorus Level 2.1 MG/DL Anion Gap 9 MEQ/L Estimat Glomerular Filtration Rate 164 ML/MIN Objective Remarks GENERAL: No acute distress. SKIN: No rashes, ecchymoses or lesions. HEAD: Atraumatic. Normocephalic. EYES: Pupils equal round and reactive. Extraocular motions intact. No scleral icterus. No injection or drainage. NECK: supple, no JVD no lymphadenopathy. CARDIOVASCULAR: Regular rate and rhythm without murmurs, gallops, or rubs. RESPIRATORY: Clear to auscultation. GASTROINTESTINAL: Abdomen soft, nondistended. MUSCULOSKELETAL: Extremities without clubbing, cyanosis, or edema. NEUROLOGICAL: Awake and alert. No focal deficits. Medications and IVs Current Medications Medications (Trade) Dose Ordered Sig/Dana Route Start Time Stop Time Status Last Admin (NS Flush) 2 ml UNSCH PRN IV FLUSH 09/18/17 00:00 09/20/17 03:15 (NS Flush) 2 ml BID IV FLUSH 09/18/17 09:00 09/19/17 19:38 (Zofran Inj) 4 mg Q6H PRN IVP 09/18/17 00:00 (Narcan Inj) 0.4 mg UNSCH PRN IV PUSH 09/18/17 00:00 (Folate) 1 mg DAILY PO 09/18/17 09:00 09/23/17 08:59 Future Hold (Theragran M Tab) 1 tab DAILY PO 09/18/17 09:00 09/23/17 08:59 Future Hold (Romazicon Inj) 0.2 mg Q1M PRN IV PUSH 09/18/17 02:30 (Ativan) 1 mg Q4H PRN PO 09/18/17 02:30 09/19/17 18:23 (Ativan Inj) 1 mg Q4H PRN IV PUSH 09/18/17 02:30 09/19/17 00:36 (Ativan) 2 mg Q2H PRN PO 09/18/17 02:30 (Ativan Inj) 2 mg Q2H PRN IV PUSH 09/18/17 02:30 (Ativan Inj) 2 mg Q1H PRN IV PUSH 09/18/17 02:30 (Ativan Inj) 2 mg Q15M PRN IV PUSH 09/18/17 02:30 (Protonix Inj) 40 mg Q24H IV PUSH 09/18/17 04:15 09/20/17 04:03 Ciprofloxacin/ Dextrose 200 ml @ 200 mls/hr Q12H IV 09/18/17 04:15 09/20/17 04:26 Metronidazole 100 ml @ 100 mls/hr Q8H IV 09/18/17 05:30 09/20/17 07:18 Multivitamins 10 ml/Folic Acid 1 mg/Sodium Chloride 510.2 ml @ 125 mls/hr Q24H IV 09/18/17 06:00 09/23/17 05:59 09/19/17 06:30 Thiamine HCl 100 mg/Sodium Chloride 101 ml @ 100 mls/hr Q24H IV 09/18/17 06:00 09/21/17 05:59 09/19/17 05:50 (Vitamin B1) 100 mg DAILY PO 09/21/17 09:00 Dextrose 1,000 ml @ 50 mls/hr Q20H IV 09/19/17 07:00 09/20/17 04:07 (Dilaudid Pf Inj) 0.5 mg Q3HR PRN IV PUSH 09/19/17 12:15 09/20/17 03:13 (Mag-Ox) 400 mg DAILY PO 09/20/17 09:00 A/P Assessment and Plan 66-year-old male with a past medical history significant for stage IV esophageal cancer, currently undergoing immunotherapy, COPD, alcohol abuse, and hypertension presents with black stools and bright red blood per rectum with lower abdominal pain. 1. Lower GI bleed Patient consulted by GI specialist with diagnosis of Acute colitis/lower GI bleed, recommended to continue Flagyl/Cipro Flexible Sigmoidoscopy, continue PPIs, Stage IV Esohageal Cancer with disease to the lung and liver, EGD recommended, asked for Vascular Surgery specialit consult, Followed by his Primary technical specialist cytology Doctor Kanika Corona he is on Palliative Chemotherapy with Ramucirumab, discussed with the patient about the Atherosclerotic disease is evident on CT scan and calcifications in Aorta and stenosis of the superior mesenteric artery, as per Oncology improving lung lesions recommended SCDs for DVT prophylaxis and activity. EGD performed yesterday found Radiation esophagitis midesophagus no biopsy concern for bleeding, Gastritis antrum, Hiatal Hernia, recommended to continue anti-reflux regimen and continue PPI and follow in three months. Status post Flexible Sigmoidoscopy with biopsy found Diverticulosis sigmoid, multiple ulcers in descending colon and sigmoid consistent with ischemic colitis biopsy taken, Internal hemorrhoids , External Hemorrhoids. Colonoscopy in one month as per Doctor Rosa Doss. not yet cleared for discharge by GI specialist 2. Abdominal pain/colitis CT of the abdomen/pelvis showed nonspecific colitis of the descending colon with concern for stenosis of the SMA and dense calcification in the distal aorta in the region of the LLOYD CTA of the abdomen/pelvis pending Left iliac and distal aortic with critical stenosis, recommended to follow as outpatient with Vascular surgery at this time clear for discharge. continue antibiotics for Colitis. continue Metronidazole and Ciprofloxacin. 3. Alcohol abuse Patient drinks approximately one sixpack per day [facility] protocol Folate/Thiamine 4. Tobacco dependence Strongly recommended to stop smoking, continue Bronchodilator, Mucolytic and incentive spirometry 5. Hypokalemia replaced with 40 meq of Potassium chloride. also continue Magnesium Oxide 400 mg daily. DVT prophylaxis SCDs Discharge Planning Awaiting final by GI specialist for discharge. Trevon Worley MD Sep 20, 2017 08:19
[2017-09-20] MEDS: MAGNESIUM OXIDE 400 MG TAB PO SCH (08:31)
[2017-09-20 08:55] LABS: PLATELET ESTIMATE SMEAR LOW (NORMAL); PLATELET MORPHOLOGY NORMAL (NORMAL)
[2017-09-20 08:56] LABS: SCAN/DIFF AUTO DIFF CONFIRMED
[2017-09-20] MEDS: SODIUM CHLORIDE 0.9% FLUSH 10 ML FLUSH IV FLUSH SCH ×2 (09:00→20:30)
[2017-09-20] MEDS: POTASSIUM CHLOR 20 MEQ PREMIX 100 ML IV SCH ×2 (10:00→12:08)
--- NOTE | 2017-09-20 10:04 | PD.VS.PN ---
Subjective Subjective/Hospital Course Pt appears in NAD Pt denied abdominal pain Abdomen non tender Objective Vitals/I&O Date Time Temp Pulse Resp B/P (MAP) Pulse Ox O2 Delivery O2 Flow Rate FiO2 09/20/17 04:00 97.8 76 18 137/81 (99) 99 09/20/17 00:00 98.2 76 18 143/76 (98) 97 09/19/17 20:00 98.7 79 18 169/86 (113) 98 09/19/17 16:04 98.1 73 18 146/70 (95) 99 09/19/17 11:44 98.4 87 18 148/82 (104) 98 09/20/17 09/20/17 09/20/17 07:00 15:00 23:00 Intake Total 100 ml Output Total 300 ml Balance -200 ml Physical Exam GENERAL: A&Ox3,GCS15,NAD SKIN: Warm and dry/LE w/ motor intact GASTROINTESTINAL: Abdomen soft, non-tender, nondistended. MUSCULOSKELETAL: No cyanosis, or edema. Palpable R/L DP Laboratory Laboratory Tests Test 09/20/17 06:55 White Blood Count 4.0 Red Blood Count 2.27 Hemoglobin 8.9 Hematocrit 29.2 Mean Corpuscular Volume 128.6 Mean Corpuscular Hemoglobin 39.2 Mean Corpuscular Hemoglobin Concent 30.5 Red Cell Distribution Width 14.3 Platelet Count 74 Mean Platelet Volume 7.4 Neutrophils (%) (Auto) 76.2 Lymphocytes (%) (Auto) 12.2 Monocytes (%) (Auto) 10.0 Eosinophils (%) (Auto) 1.5 Basophils (%) (Auto) 0.1 Neutrophils # (Auto) 3.0 Lymphocytes # (Auto) 0.5 Monocytes # (Auto) 0.4 Eosinophils # (Auto) 0.1 Basophils # (Auto) 0.0 CBC Comment AUTO DIFF Differential Comment AUTO DIFF CONFIRMED Platelet Estimate LOW Platelet Morphology Comment NORMAL Blood Urea Nitrogen 7 Creatinine 0.51 Random Glucose 136 Calcium Level 7.8 Phosphorus Level 2.1 Sodium Level 129 Potassium Level 3.0 Chloride Level 95 Carbon Dioxide Level 25.4 Anion Gap 9 Estimat Glomerular Filtration Rate 164 Imaging Last 48 hours Impressions Abdomen/Pelvis CT 09/19/17 0000 Signed Impressions: Service Date/Time: Tuesday, September 19, 2017 12:48 - CONCLUSION: Less than 50%% proximal SMA stenosis. High grade distal aortic stenosis and critical proximal left iliac stenosis. Small volume ascites in the pelvis which is new. Kvng Lara MD Assessment and Plan Assessment: (1) Abdominal pain Plan 66/M with improved abdominal pain Pt denied recent episodes of rectal bleeding Reviewed CT imaging study, pt showed no significant SMA stenosis Plan Discussed and reviewed CT results w/ pt Arranged out pt follow up w/ a surveillance DAVION Pt clear for d/c from a vascular stand point Diann BRYSON [facility] [phone] Problem Qualifiers (1) Abdominal pain: Qualified Codes: R10.32 - Left lower quadrant pain Diann Gonzales Sep 20, 2017 10:04
--- NOTE | 2017-09-20 11:20 | HHI.GIFU ---
Subjective Remarks Resting in bed. States he had mild nausea without vomiting earlier today. Continues to have some mild "gassy" abdominal discomfort with bowel movements, improved. One loose black/greenish stool this am. No red blood. (Sugey Hernández) Objective Vitals I&O Vital Signs Date Time Temp Pulse Resp B/P (MAP) Pulse Ox O2 Delivery O2 Flow Rate FiO2 09/20/17 10:50 13 09/20/17 04:00 97.8 76 18 137/81 (99) 99 09/20/17 00:00 98.2 76 18 143/76 (98) 97 09/19/17 20:00 98.7 79 18 169/86 (113) 98 09/19/17 16:04 98.1 73 18 146/70 (95) 99 09/19/17 11:44 98.4 87 18 148/82 (104) 98 I/O 09/19/17 09/19/17 09/19/17 09/20/17 09/20/17 09/20/17 06:59 14:59 22:59 06:59 14:59 22:59 Intake Total 789 ml 100 ml Output Total 250 ml 300 ml Balance 789 ml -250 ml -200 ml Intake IV Total 789 ml 100 ml Output Urine Total 250 ml 300 ml # Voids 2 1 3 # Bowel Movements 1 Laboratory Laboratory Tests Test 09/20/17 06:55 White Blood Count 4.0 Red Blood Count 2.27 Hemoglobin 8.9 Hematocrit 29.2 Mean Corpuscular Volume 128.6 Mean Corpuscular Hemoglobin 39.2 Mean Corpuscular Hemoglobin Concent 30.5 Red Cell Distribution Width 14.3 Platelet Count 74 Mean Platelet Volume 7.4 Neutrophils (%) (Auto) 76.2 Lymphocytes (%) (Auto) 12.2 Monocytes (%) (Auto) 10.0 Eosinophils (%) (Auto) 1.5 Basophils (%) (Auto) 0.1 Neutrophils # (Auto) 3.0 Lymphocytes # (Auto) 0.5 Monocytes # (Auto) 0.4 Eosinophils # (Auto) 0.1 Basophils # (Auto) 0.0 CBC Comment AUTO DIFF Differential Comment AUTO DIFF CONFIRMED Platelet Estimate LOW Platelet Morphology Comment NORMAL Blood Urea Nitrogen 7 Creatinine 0.51 Random Glucose 136 Calcium Level 7.8 Phosphorus Level 2.1 Sodium Level 129 Potassium Level 3.0 Chloride Level 95 Carbon Dioxide Level 25.4 Anion Gap 9 Estimat Glomerular Filtration Rate 164 Imaging Last Impressions Abdomen/Pelvis CT 09/19/17 0000 Signed Impressions: Service Date/Time: Tuesday, September 19, 2017 12:48 - CONCLUSION: Less than 50%% proximal SMA stenosis. High grade distal aortic stenosis and critical proximal left iliac stenosis. Small volume ascites in the pelvis which is new. Kvng Lara MD Physical Exam HEENT: Normocephalic; atraumatic; no jaundice. CHEST: CTA CARDIAC: RRR ABDOMEN: Soft, nondistended,mild diffuse tenderness; no hepatosplenomegaly; bowel sounds are present in all four quadrants. EXTREMITIES: No clubbing, cyanosis, or edema. SKIN: Normal; no rash; no jaundice. [employer]: No focal deficits; alert and oriented times three. (Sugey Hernández) Assessment and Plan Plan ASSESSMENT: - Acute Colitis with abdominal pain and lower GI bleeding. CT Scan abdomen and pelvis (09/17/17)---> diffuse thickening of the descending colon with pericolonic inflammatory changes and fluid characteristic of a nonspecific colitis. However, in concern there may be a non-ostial stenosis of the SMA and there is dense calcification of the distal aorta in the region of the LLOYD with market narrowing of the aortic and left iliac luminal diameter. The combination could limit flow to the LLOYD distribution and explain current radiographic findings. I would recommend a CTA of the abdominal vasculature sometime tomorrow (patient received contrast for the current exam) for further evaluation of the regional vasculature. Mass lesions in the lung bases are smaller when compared to the prior exam characteristic of a favorable response to therapy. However there is a new 1.3 cm hypodense lesion in the left hepatic lobe concerning for medical static deposit. Stable hydropic configuration of the gallbladder with distention of the common bile duct measuring 1.1 cm at the pancreatic head. S/P Flexible sigmoidoscopy (09/18/17)---> 1. Diverticulosis sigmoid, descending multiple ulcers in descending, sigmoid consistent with ischemic colitis-biopsy very friable mucosa-2. Retroflexed views revealed internal hemorrhoid 3. Revealed external hemorrhoids. Pathology pending. CTA (09/19)----> Less than 50% proximal SMA stenosis. High grade distal aortic stenosis and critical proximal left iliac stenosis, small volume ascites in the pelvis which is new. S/P Vascular surgery evaluation, signed off with outpatient FU. Had one loose stool. Stool studies have not been sent. No red blood in stool. States had one loose stool- black/greenish color. HH Dropped from 12.3/35.5 to 8.9/29.2. - Lower GIB. S/P sigmoidoscopy as above, no active bleeding at this time. - Odynophagia, Dysphagia. Intermittent, improved after his chemo and radiation , but still having intermittent symptoms. S/P EGD (09/18/17)---> 1. Radiation esophagitis midesophagus,no biopsy concern for bleeding gastritis antrum 2. Retroflexed views revealed a hiatal hernia. PPI. Will need repeat EGD 3 months - Abnormal imaging abdomen and pelvis, raising suspicion for ischemic colitis. CT as above. CTA as above, S/P vascular surgery evaluation, they have signed off. - Chronic constipation. Aggravated by methadone, hydrocodone use. Takes prune juice. - GERD. PPI - N/V, Wt. Loss. Intermittent. Has lost 20 lbs, but states this has been stable more recently. - Stage IV Esophageal cancer with disease to the lung and liver. Dx March 2017. S/P Palliative Chemotherapy, Radiation. Now on immunotherapy with Ramucirumab, which he last took 6-7 days prior to admission. He is followed by Dr. Corona for oncology. - Leukocytosis. Improved. - COPD, HTN, RA, per attending. PLAN: - [facility] - Stat CBC, if worsening HH will need bleeding scan - Await pathology - Stool for CDiff, O&P, Giardia, C/S, WBC (had loose stool, but not sent) - Cont. Cipro/Flagyl - Cont. Protonix 40mg IV daily - Monitor H&H- 1600 today - Transfuse as necessary - Monitor labs - Supportive care - Further recommendations to follow based on results of above - EGD 3 months - Colonoscopy 1 month - Pt seen and examined by Dr. Doss and myself and this note is written on her behalf (Sugey Hernández) Physician Comments seen, examined agree with above repeat hb stable- no indication of gi bleeding monitor hb closely if still dropping we will repeat ct abdomen/pelvis (BratRosa pretty Carly Melissa ARNP Sep 20, 2017 11:20 Rosa Doss MD Sep 20, 2017 18:23
[2017-09-20 12:00] VITALS: BP 169/89; PULSE 83; RESP 18; TEMP 98.6; O2SAT 97
--- NOTE | 2017-09-20 14:25 | PD.ONC.PN ---
Subjective Subjective Remarks Afebrile Still has dark stools Has some abdominal pain but reports it is somewhat improved after just having a BM Objective Data Date Time Temp Pulse Resp B/P (MAP) Pulse Ox O2 Delivery O2 Flow Rate FiO2 09/20/17 12:00 98.6 83 18 169/89 (115) 97 09/20/17 10:50 13 09/20/17 04:00 97.8 76 18 137/81 (99) 99 09/20/17 00:00 98.2 76 18 143/76 (98) 97 09/19/17 20:00 98.7 79 18 169/86 (113) 98 09/19/17 16:04 98.1 73 18 146/70 (95) 99 09/20/17 09/20/17 09/20/17 07:00 15:00 23:00 Intake Total 100 ml Output Total 300 ml Balance -200 ml Result Diagram: 09/20/17 0655 09/20/17 0655 Laboratory Results Laboratory Tests Test 09/20/17 06:55 White Blood Count 4.0 TH/MM3 Red Blood Count 2.27 MIL/MM3 Hemoglobin 8.9 GM/DL Hematocrit 29.2 % Mean Corpuscular Volume 128.6 FL Mean Corpuscular Hemoglobin 39.2 PG Mean Corpuscular Hemoglobin Concent 30.5 % Red Cell Distribution Width 14.3 % Platelet Count 74 TH/MM3 Mean Platelet Volume 7.4 FL Neutrophils (%) (Auto) 76.2 % Lymphocytes (%) (Auto) 12.2 % Monocytes (%) (Auto) 10.0 % Eosinophils (%) (Auto) 1.5 % Basophils (%) (Auto) 0.1 % Neutrophils # (Auto) 3.0 TH/MM3 Lymphocytes # (Auto) 0.5 TH/MM3 Monocytes # (Auto) 0.4 TH/MM3 Eosinophils # (Auto) 0.1 TH/MM3 Basophils # (Auto) 0.0 TH/MM3 CBC Comment AUTO DIFF Differential Comment AUTO DIFF CONFIRMED Platelet Estimate LOW Platelet Morphology Comment NORMAL Blood Urea Nitrogen 7 MG/DL Creatinine 0.51 MG/DL Random Glucose 136 MG/DL Calcium Level 7.8 MG/DL Phosphorus Level 2.1 MG/DL Sodium Level 129 MEQ/L Potassium Level 3.0 MEQ/L Chloride Level 95 MEQ/L Carbon Dioxide Level 25.4 MEQ/L Anion Gap 9 MEQ/L Estimat Glomerular Filtration Rate 164 ML/MIN Administered Medications Medications (Trade) Dose Ordered Sig/Dana Route PRN Reason Start Time Stop Time Status Last Admin Dose Admin Sodium Chloride (NS Flush) 2 ml UNSCH PRN IV FLUSH FLUSH AFTER USING IV ACCESS 09/18/17 00:00 09/20/17 03:15 Sodium Chloride (NS Flush) 2 ml BID IV FLUSH 09/18/17 09:00 09/19/17 19:38 Lorazepam (Ativan) 1 mg Q4H PRN PO CIWA 8 - 10 09/18/17 02:30 09/19/17 18:23 Lorazepam (Ativan Inj) 1 mg Q4H PRN IV PUSH CIWA 8 - 10 09/18/17 02:30 09/19/17 00:36 Pantoprazole Sodium (Protonix Inj) 40 mg Q24H IV PUSH 09/18/17 04:15 09/20/17 04:03 Ciprofloxacin/ Dextrose 200 ml @ 200 mls/hr Q12H IV 09/18/17 04:15 09/20/17 04:26 Metronidazole 100 ml @ 100 mls/hr Q8H IV 09/18/17 05:30 09/20/17 12:58 Multivitamins 10 ml/Folic Acid 1 mg/Sodium Chloride 510.2 ml @ 125 mls/hr Q24H IV 09/18/17 06:00 09/23/17 05:59 09/19/17 06:30 Thiamine HCl 100 mg/Sodium Chloride 101 ml @ 100 mls/hr Q24H IV 09/18/17 06:00 09/21/17 05:59 09/19/17 05:50 Dextrose 1,000 ml @ 50 mls/hr Q20H IV 09/19/17 07:00 09/20/17 04:07 Hydromorphone HCl (Dilaudid Pf Inj) 0.5 mg Q3HR PRN IV PUSH pain > 4 09/19/17 12:15 09/20/17 08:30 Magnesium Oxide (Mag-Ox) 400 mg DAILY PO 09/20/17 09:00 09/20/17 08:31 Objective Remarks GENERAL: Middle aged male resting in bed in no acute distress. SKIN: Warm and dry. HEAD: Normocephalic. EYES: No injection or drainage. NECK: Supple, trachea midline. CARDIOVASCULAR: Regular rate and rhythm RESPIRATORY: Breath sounds equal bilaterally. No accessory muscle use. GASTROINTESTINAL: Abdomen mildly distended, non-tender to palpation. EXTREMITIES: No cyanosis. No edema. NEUROLOGICAL: No obvious focal deficit. Awake, alert, and oriented x3. 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 --lung lesion was biopsied to confirm his diagnosis of esophageal cancer. --treated with concurrent chemotherapy and radiation to the esophagus to alleviate his symptoms of dysphagia. --placed on maintenance therapy with ramucirumab (VEG-F inhibitor). pending restaging evaluation on his last clinic visit. --last dose of ramucirumab was September 11. -- Colon biopsy pending (2) Abdominal pain ICD Codes: R10.9 - Unspecified abdominal pain Plan: --on methadone with dilaudid p.r.n. --CT abdomen, 09/17/2017 that showed diffuse thickening of the descending colon with pericolonic inflammatory changes, characteristic of colitis. +stenosis of the SMA with dense calcification of the distal aorta in the region of the LLOYD. Mass lesions in the lung are smaller. +new 1.3 cm hypodense lesion in the left hepatic lobe concerning for metastatic disease. Assessment 66y/o male with metastatic esophageal cancer. history of rheumatoid arthritis, hypertension, chronic alcohol use, COPD Plan 1. Pt reports pain overall improved. 2. Will have RN get CBC with any obvious GI bleeding 3. Repeat CBC pending; noted that Hgb dropped from 12.3 to 8.9 this am. 4. Continue supportive care Attending Statement The exam, history, and the medical decision-making described in the above note were completed with the assistance of the mid-level provider. I reviewed and agree with the findings presented. I attest that I had a [id number] encounter with the patient on the same day, and personally performed and documented my assessment and findings in the medical record. Better but still has pain. No lesion to stent. Hgb still decreasing, monitor, defer from transfusion today. Cont support. Plan to DC ramicirumab. Problem Qualifiers (1) Abdominal pain: Qualified Codes: R10.32 - Left lower quadrant pain Lizeth Da Silva 30, 2017 14:25 Kanika Corona MD Sep 20, 2017 22:53
[2017-09-20 14:36] LABS: AUTOMATED NEUTROPHIL # 3.2 TH/MM3 (1.8-7.7); BASOPHIL % 0.2 % (0.0-2.0); EOSINOPHIL # 0.1 TH/MM3 (0-0.4); EOSINOPHIL % 1.7 % (0.0-4.0); LYMPH % 13.9 % (9.0-44.0); LYMPHOCYTE # 0.6 TH/MM3 (1.0-4.8); MEAN CELL VOLUME 113.6 FL (80.0-100.0); MEAN CORPUSCULAR HEMOGLOBIN 38.7 PG (27.0-34.0); MEAN CORPUSCULAR HGB CONC 34.1 % (32.0-36.0); MONO % 11.4 % (0.0-8.0); NEUT % 72.8 % (16.0-70.0); PLATELET COUNT 84 TH/MM3 (150-450); RED BLOOD COUNT 2.29 MIL/MM3 (4.50-5.90); RED CELL DISTRIBUTION WIDTH 12.4 % (11.6-17.2); WHITE BLOOD COUNT 4.5 TH/MM3 (4.0-11.0)
[2017-09-20 14:37] LABS: HEMO FLAGS AUTO DIFF
[2017-09-20 15:27] LABS: PLATELET ESTIMATE SMEAR LOW (NORMAL); PLATELET MORPHOLOGY NORMAL (NORMAL); SCAN/DIFF AUTO DIFF CONFIRMED
[2017-09-20 16:00] VITALS: BP 146/77; PULSE 77; RESP 18; TEMP 98.4; O2SAT 100
[2017-09-20] MEDS ORDERED: POTASSIUM CHLOR 10 MEQ PREMIX 100 ML IV ONE (18:00)
[2017-09-20 18:59] LABS: HEMATOCRIT 35.2 % (39.0-51.0); REVIEW FLAG FINAL
[2017-09-20 20:34] LABS: C. DIFF EPI 027 PRESUMPTIVE NEGATIVE (NEGATIVE)
[2017-09-20 20:59] VITALS: BP 142/74; PULSE 73; RESP 18; TEMP 97.8; O2SAT 99
[2017-09-21] VITALS: BP 146/86; PULSE 70; RESP 20; TEMP 98.4; O2SAT 95
[2017-09-21] MEDS: POTASSIUM CHLOR 10 MEQ PREMIX 100 ML IV SCH ×3 (00:44→03:34)
[2017-09-21] MEDS: HYDROmorphone HCL PF 0.5 MG/0.5 ML SYRINGE IV PUSH PRN ×3 (01:26→08:28)
[2017-09-21 02:42] VITALS: PULSE 73
[2017-09-21 04:00] VITALS: BP 155/81; PULSE 72; RESP 20; TEMP 97.6; O2SAT 99
[2017-09-21] MEDS: PANTOPRAZOLE SODIUM 40 MG VIAL IV PUSH SCH (04:39)
[2017-09-21] MEDS: CIPROFLOXACIN 400 MG PREMIX 200 ML IV SCH (04:42)
[2017-09-21] MEDS: metroNIDAZOLE 500 MG INJ 100 ML IV SCH (06:32)
[2017-09-21 07:01] LABS: AUTOMATED NEUTROPHIL # 3.3 TH/MM3 (1.8-7.7); BASOPHIL % 0.3 % (0.0-2.0); EOSINOPHIL # 0.2 TH/MM3 (0-0.4); EOSINOPHIL % 3.8 % (0.0-4.0); HEMATOCRIT 34.8 % (39.0-51.0); HEMO FLAGS DIFF FINAL; LYMPH % 20.5 % (9.0-44.0); LYMPHOCYTE # 1.1 TH/MM3 (1.0-4.8); MEAN CELL VOLUME 109.9 FL (80.0-100.0); MEAN CORPUSCULAR HEMOGLOBIN 38.8 PG (27.0-34.0); MEAN CORPUSCULAR HGB CONC 35.4 % (32.0-36.0); MONO % 13.9 % (0.0-8.0); NEUT % 61.5 % (16.0-70.0); PLATELET COUNT 114 TH/MM3 (150-450); RED BLOOD COUNT 3.17 MIL/MM3 (4.50-5.90); RED CELL DISTRIBUTION WIDTH 12.3 % (11.6-17.2); WHITE BLOOD COUNT 5.3 TH/MM3 (4.0-11.0)
[2017-09-21 07:25] LABS: ANION GAP 5 MEQ/L (5-15); AST (GOT) 31 U/L (15-37); BLOOD UREA NITROGEN 5 MG/DL (7-18); CHLORIDE 101 MEQ/L (98-107); GLOMERULAR FILTRATION RATE 141 ML/MIN (>89); POTASSIUM 4.2 MEQ/L (3.5-5.1); SODIUM (NA) 132 MEQ/L (136-145)
[2017-09-21 07:33] LABS: ALKALINE PHOSPHATASE 59 U/L (45-117); ALT (GPT) 25 U/L (12-78); TOTAL BILIRUBIN ADULT 0.3 MG/DL (0.2-1.0)
[2017-09-21 08:13] VITALS: BP 118/67; PULSE 79; RESP 17; TEMP 97.7; O2SAT 99
[2017-09-21] MEDS: MAGNESIUM OXIDE 400 MG TAB PO SCH (08:26)
[2017-09-21] MEDS: SODIUM CHLORIDE 0.9% FLUSH 10 ML FLUSH IV FLUSH SCH (08:27)
[2017-09-21] MEDS: DEXTROSE 5% IN WATE 1000ML INJ 1,000 ML IV SCH (08:28)
[2017-09-21] MEDS ORDERED: THIAMINE HCL 100 MG TAB PO SCH (09:00)
--- NOTE | 2017-09-21 09:15 | HHI.PR ---
Subjective Remarks This is a pleasant 66 y/o male with COPD, hypertension and stage IV esophageal cancer status post radiation and currently undergoing chemotherapy with Ramucirumab presents with one episode of black tarry stool and bright red blood per rectum. The patient reports lower abdominal pain, left greater than right, and a history of constipation prior to the bowel movement that he had yesterday. He is followed by Dr. Corona, CT of the abdomen/pelvis showed diffuse thickening of the descending colon with pericolonic inflammatory changes and fluid characteristic of a nonspecific colitis. There was concern for stenosis of the SMA and dense calcification in the distal aorta in the region of the LLOYD which could limit blood flow. he also has Alcohol abuse history, RA, GERD, 09/18: Seen in his bedroom in the presence of nurse, he will have probable procedure later today. 09/19: Patient consulted by GI specialist with diagnosis of Acute colitis/lower GI bleed, recommended to continue Flagyl/Cipro Flexible Sigmoidoscopy, continue PPIs, Stage IV Esohageal Cancer with disease to the lung and liver, EGD recommended, asked for Vascular Surgery specialit consult, Followed by his Primary coding specialist Doctor Kanika Corona he is on Palliative Chemotherapy with Ramucirumab, discussed with the patient about the Atherosclerotic disease is evident on CT scan and calcifications in Aorta and stenosis of the superior mesenteric artery, as per Oncology improving lung lesions recommended SCDs for DVT prophylaxis and activity. EGD performed yesterday found Radiation esophagitis midesophagus no biopsy concern for bleeding, Gastritis antrum, Hiatal Hernia, recommended to continue anti-reflux regimen and continue PPI and follow in three months. Status post Flexible Sigmoidoscopy with biopsy found Diverticulosis sigmoid, multiple ulcers in descending colon and sigmoid consistent with ischemic colitis biopsy taken, Internal hemorrhoids, External Hemorrhoids. Colonoscopy in one month as per Doctor Rosa Doss. Vascular 3d specialist following awaiting results of CTA of the Abdomen and Pelvis. 09/20: has thrombocytopenia, and worsened Anemia Hemoglobin 8.9 in am today, Vascular surgery discussed findings on CTA with patient and recommended follow up as outpatient and signed off the case, okay to discharge, awaiting final recommendations by GI specialist. 09/21: Stable in his bedroom, no further GI bleed, improving his Abdominal pain , discussed with his Mrs. Zee Paul she states he Drinks alcohol since he wakes up until he goes to sleep, also smoke cigarettes and Marijuana. at this time no nausea, vomit or diarrhea. okay from GI standpoint to discharge Home. Objective Vital Signs Date Time Temp Pulse Resp B/P (MAP) Pulse Ox O2 Delivery O2 Flow Rate FiO2 09/21/17 08:13 97.7 79 17 118/67 (84) 99 09/21/17 04:00 97.6 72 20 155/81 (105) 99 09/21/17 02:42 73 09/21/17 00:00 98.4 70 20 146/86 (106) 95 09/20/17 20:59 97.8 73 18 142/74 (96) 99 09/20/17 19:00 14 09/20/17 16:00 98.4 77 18 146/77 (100) 100 09/20/17 12:00 98.6 83 18 169/89 (115) 97 I/O 09/20/17 09/20/17 09/20/17 09/21/17 09/21/17 09/21/17 07:00 15:00 23:00 07:00 15:00 23:00 Intake Total 100 ml 460 ml Output Total 300 ml Balance -200 ml 460 ml Intake Oral 460 ml IV Total 100 ml Output Urine Total 300 ml # Voids 3 3 Result Diagram: 09/21/1762909/21/17 06 Imaging Last Impressions Abdomen/Pelvis CT 09/19/17 0000 Signed Impressions: Service Date/Time: Tuesday, September 19, 2017 12:48 - CONCLUSION: Less than 50%% proximal SMA stenosis. High grade distal aortic stenosis and critical proximal left iliac stenosis. Small volume ascites in the pelvis which is new. Kvng Lara MD Procedures EGD performed yesterday found Radiation esophagitis midesophagus no biopsy concern for bleeding, Gastritis antrum, Hiatal Hernia, recommended to continue anti-reflux regimen and continue PPI and follow in three months. Status post Flexible Sigmoidoscopy with biopsy found Diverticulosis sigmoid, multiple ulcers in descending colon and sigmoid consistent with ischemic colitis biopsy taken, Internal hemorrhoids, External Hemorrhoids. Colonoscopy in one month as per Doctor Rosa Doss. Other Results Laboratory Tests Test 09/17/17 18:40 09/17/17 20:10 09/19/17 04:55 09/20/17 06:55 Lactic Acid Level 1.9 mmol/L Urine Color YELLOW Urine Turbidity CLEAR Urine pH 8.0 Urine Specific [place] 1.024 Urine Protein TRACE mg/dL Urine Glucose (UA) NEG mg/dL Urine Ketones 40 mg/dL Urine Occult Blood NEG Urine Nitrite NEG Urine Bilirubin NEG Urine Urobilinogen 4.0 MG/DL Urine Leukocyte Esterase NEG Urine RBC 1 /hpf Urine WBC 3 /hpf Urine Squamous Epithelial Cells <1 /hpf Urine Mucus FEW /lpf Microscopic Urinalysis Comment CULT NOT INDICATED Prothrombin Time 10.7 SEC Prothromb Time International Ratio 1.0 RATIO Activated Partial Thromboplast Time 32.8 SEC Magnesium Level 1.8 MG/DL Blood Urea Nitrogen 7 MG/DL Creatinine 0.51 MG/DL Random Glucose 136 MG/DL Calcium Level 7.8 MG/DL Phosphorus Level 2.1 MG/DL Sodium Level 129 MEQ/L Potassium Level 3.0 MEQ/L Chloride Level 95 MEQ/L Carbon Dioxide Level 25.4 MEQ/L Test 09/20/17 14:10 09/20/17 16:09 09/21/17 06:30 Platelet Estimate LOW Platelet Morphology Comment NORMAL Stool C. difficile Toxin (PCR) NEGATIVE Stl C. difficile Toxin Epiderm 027 PRESUMPTIVE NEGATIVE White Blood Count 5.3 TH/MM3 Red Blood Count 3.17 MIL/MM3 Hemoglobin 12.3 GM/DL Hematocrit 34.8 % Mean Corpuscular Volume 109.9 FL Mean Corpuscular Hemoglobin 38.8 PG Mean Corpuscular Hemoglobin Concent 35.4 % Red Cell Distribution Width 12.3 % Platelet Count 114 TH/MM3 Mean Platelet Volume 7.3 FL Neutrophils (%) (Auto) 61.5 % Lymphocytes (%) (Auto) 20.5 % Monocytes (%) (Auto) 13.9 % Eosinophils (%) (Auto) 3.8 % Basophils (%) (Auto) 0.3 % Neutrophils # (Auto) 3.3 TH/MM3 Lymphocytes # (Auto) 1.1 TH/MM3 Monocytes # (Auto) 0.7 TH/MM3 Eosinophils # (Auto) 0.2 TH/MM3 Basophils # (Auto) 0.0 TH/MM3 CBC Comment DIFF FINAL Differential Comment Blood Urea Nitrogen 5 MG/DL Creatinine 0.58 MG/DL Random Glucose 108 MG/DL Total Protein 5.7 GM/DL Albumin 2.6 GM/DL Calcium Level 8.0 MG/DL Alkaline Phosphatase 59 U/L Aspartate Amino Transf (AST/SGOT) 31 U/L Alanine Aminotransferase (ALT/SGPT) 25 U/L Total Bilirubin 0.3 MG/DL Sodium Level 132 MEQ/L Potassium Level 4.2 MEQ/L Chloride Level 101 MEQ/L Carbon Dioxide Level 26.0 MEQ/L Anion Gap 5 MEQ/L Estimat Glomerular Filtration Rate 141 ML/MIN Objective Remarks GENERAL: No acute distress. SKIN: No rashes, ecchymoses or lesions. HEAD: Atraumatic. Normocephalic. EYES: Pupils equal round and reactive. Extraocular motions intact. No scleral icterus. No injection or drainage. NECK: supple, no JVD no lymphadenopathy. CARDIOVASCULAR: Regular rate and rhythm without murmurs, gallops, or rubs. RESPIRATORY: Clear to auscultation. GASTROINTESTINAL: Abdomen soft, nondistended. MUSCULOSKELETAL: Extremities without clubbing, cyanosis, or edema. NEUROLOGICAL: Awake and alert. No focal deficits. Medications and IVs Current Medications Medications (Trade) Dose Ordered Sig/Dana Route Start Time Stop Time Status Last Admin (NS Flush) 2 ml UNSCH PRN IV FLUSH 09/18/17 00:00 09/20/17 03:15 (NS Flush) 2 ml BID IV FLUSH 09/18/17 09:00 09/21/17 08:27 (Zofran Inj) 4 mg Q6H PRN IVP 09/18/17 00:00 (Narcan Inj) 0.4 mg UNSCH PRN IV PUSH 09/18/17 00:00 (Folate) 1 mg DAILY PO 09/18/17 09:00 09/23/17 08:59 Future Hold (Theragran M Tab) 1 tab DAILY PO 09/18/17 09:00 09/23/17 08:59 Future Hold (Romazicon Inj) 0.2 mg Q1M PRN IV PUSH 09/18/17 02:30 (Ativan) 1 mg Q4H PRN PO 09/18/17 02:30 09/19/17 18:23 (Ativan Inj) 1 mg Q4H PRN IV PUSH 09/18/17 02:30 09/19/17 00:36 (Ativan) 2 mg Q2H PRN PO 09/18/17 02:30 (Ativan Inj) 2 mg Q2H PRN IV PUSH 09/18/17 02:30 09/20/17 20:42 (Ativan Inj) 2 mg Q1H PRN IV PUSH 09/18/17 02:30 (Ativan Inj) 2 mg Q15M PRN IV PUSH 09/18/17 02:30 (Protonix Inj) 40 mg Q24H IV PUSH 09/18/17 04:15 09/21/17 04:39 Ciprofloxacin/ Dextrose 200 ml @ 200 mls/hr Q12H IV 09/18/17 04:15 09/21/17 04:42 Metronidazole 100 ml @ 100 mls/hr Q8H IV 09/18/17 05:30 09/21/17 06:32 Multivitamins 10 ml/Folic Acid 1 mg/Sodium Chloride 510.2 ml @ 125 mls/hr Q24H IV 09/18/17 06:00 09/23/17 05:59 09/19/17 06:30 (Vitamin B1) 100 mg DAILY PO 09/21/17 09:00 09/21/17 08:26 Dextrose 1,000 ml @ 50 mls/hr Q20H IV 09/19/17 07:00 09/21/17 08:28 (Dilaudid Pf Inj) 0.5 mg Q3HR PRN IV PUSH 09/19/17 12:15 09/21/17 08:28 (Mag-Ox) 400 mg DAILY PO 09/20/17 09:00 09/21/17 08:26 A/P Assessment and Plan 66-year-old male with a past medical history significant for stage IV esophageal cancer, currently undergoing immunotherapy, COPD, alcohol abuse, and hypertension presents with black stools and bright red blood per rectum with lower abdominal pain. 1. Lower GI bleed Patient consulted by GI specialist with diagnosis of Acute colitis/lower GI bleed, recommended to continue Flagyl/Cipro Flexible Sigmoidoscopy, continue PPIs, Stage IV Esohageal Cancer with disease to the lung and liver, EGD recommended, asked for Vascular Surgery specialit consult, Followed by his Primary coding specialist Doctor Kanika Corona he is on Palliative Chemotherapy with Ramucirumab, discussed with the patient about the Atherosclerotic disease is evident on CT scan and calcifications in Aorta and stenosis of the superior mesenteric artery, as per Oncology improving lung lesions recommended SCDs for DVT prophylaxis and activity. EGD performed yesterday found Radiation esophagitis midesophagus no biopsy concern for bleeding, Gastritis antrum, Hiatal Hernia, recommended to continue anti-reflux regimen and continue PPI and follow in three months. Status post Flexible Sigmoidoscopy with biopsy found Diverticulosis sigmoid, multiple ulcers in descending colon and sigmoid consistent with ischemic colitis biopsy taken, Internal hemorrhoids , External Hemorrhoids. Colonoscopy in one month as per Doctor Rosa Doss. will follow with Doctor Doss at discharge, okay from GI standpoint for discharge. 2. Abdominal pain/colitis CT of the abdomen/pelvis showed nonspecific colitis of the descending colon with concern for stenosis of the SMA and dense calcification in the distal aorta in the region of the [place] CTA of the abdomen/pelvis pending Left iliac and distal aortic with critical stenosis, recommended to follow as outpatient with Vascular surgery at this time clear for discharge. continue antibiotics for Colitis. discontinued antibiotics by GI specialist. 3. Alcohol abuse Patient drinks approximately one sixpack per day CIWA protocol Folate/Thiamine 4. Tobacco dependence Strongly recommended to stop smoking, continue Bronchodilator, Mucolytic and incentive spirometry 5. Hypokalemia replaced with 40 meq of Potassium chloride. also continue Magnesium Oxide 400 mg daily. 6. Marijuana abuse strongly recommended to stop behavior. DVT prophylaxis SCDs Discussed with nurse Mr. Zhang and with His Mrs. Zee Paul she states he Drinks alcohol since he wakes up until he goes to sleep, also smoke cigarettes and Marijuana. and that he has already Pain medicines at home and no need for anything. Discharge Planning Discharge Home, discussed with patient about his bad habits he receive the counseling and state will stop smoking and drinking alcohol. Trevon Worley MD Sep 21, 2017 09:15
[2017-09-21] MEDS ORDERED: POTASSIUM CHLORIDE 20 MEQ CONTROLLED RELEASE TAB PO SCH (10:00)
[2017-09-21 12:11] VITALS: BP 153/89; PULSE 97; RESP 20; TEMP 97.4; O2SAT 99
--- NOTE | 2017-09-21 12:17 | HHI.GIFU ---
Subjective Remarks Resting in bed. No active bleeding. TOlerating diet. Objective Vitals I&O Vital Signs Date Time Temp Pulse Resp B/P (MAP) Pulse Ox O2 Delivery O2 Flow Rate FiO2 09/21/17 12:11 97.4 97 20 153/89 (110) 99 09/21/17 08:13 97.7 79 17 118/67 (84) 99 09/21/17 04:00 97.6 72 20 155/81 (105) 99 09/21/17 02:42 73 09/21/17 00:00 98.4 70 20 146/86 (106) 95 09/20/17 20:59 97.8 73 18 142/74 (96) 99 09/20/17 19:00 14 09/20/17 16:00 98.4 77 18 146/77 (100) 100 I/O 09/20/17 09/20/17 09/20/17 09/21/17 09/21/17 09/21/17 07:00 15:00 23:00 07:00 15:00 23:00 Intake Total 100 ml 460 ml Output Total 300 ml Balance -200 ml 460 ml Intake Oral 460 ml IV Total 100 ml Output Urine Total 300 ml # Voids 3 3 Laboratory Laboratory Tests Test 09/20/17 14:10 09/20/17 16:09 09/20/17 18:24 09/20/17 21:30 White Blood Count 4.5 Red Blood Count 2.29 Hemoglobin 8.9 12.5 Hematocrit 26.0 35.2 Mean Corpuscular Volume 113.6 Mean Corpuscular Hemoglobin 38.7 Mean Corpuscular Hemoglobin Concent 34.1 Red Cell Distribution Width 12.4 Platelet Count 84 Mean Platelet Volume 7.2 Neutrophils (%) (Auto) 72.8 Lymphocytes (%) (Auto) 13.9 Monocytes (%) (Auto) 11.4 Eosinophils (%) (Auto) 1.7 Basophils (%) (Auto) 0.2 Neutrophils # (Auto) 3.2 Lymphocytes # (Auto) 0.6 Monocytes # (Auto) 0.5 Eosinophils # (Auto) 0.1 Basophils # (Auto) 0.0 CBC Comment AUTO DIFF Differential Comment AUTO DIFF CONFIRMED Platelet Estimate LOW Platelet Morphology Comment NORMAL Stool C. difficile Toxin (PCR) NEGATIVE Stl C. difficile Toxin Epiderm 027 PRESUMPTIVE NEGATIVE Potassium Level 3.4 Test 09/21/17 06:30 White Blood Count 5.3 Red Blood Count 3.17 Hemoglobin 12.3 Hematocrit 34.8 Mean Corpuscular Volume 109.9 Mean Corpuscular Hemoglobin 38.8 Mean Corpuscular Hemoglobin Concent 35.4 Red Cell Distribution Width 12.3 Platelet Count 114 Mean Platelet Volume 7.3 Neutrophils (%) (Auto) 61.5 Lymphocytes (%) (Auto) 20.5 Monocytes (%) (Auto) 13.9 Eosinophils (%) (Auto) 3.8 Basophils (%) (Auto) 0.3 Neutrophils # (Auto) 3.3 Lymphocytes # (Auto) 1.1 Monocytes # (Auto) 0.7 Eosinophils # (Auto) 0.2 Basophils # (Auto) 0.0 CBC Comment DIFF FINAL Differential Comment Blood Urea Nitrogen 5 Creatinine 0.58 Random Glucose 108 Total Protein 5.7 Albumin 2.6 Calcium Level 8.0 Alkaline Phosphatase 59 Aspartate Amino Transf (AST/SGOT) 31 Alanine Aminotransferase (ALT/SGPT) 25 Total Bilirubin 0.3 Sodium Level 132 Potassium Level 4.2 Chloride Level 101 Carbon Dioxide Level 26.0 Anion Gap 5 Estimat Glomerular Filtration Rate 141 Date/Time Source Procedure Growth Status 09/20/17 16:09 Stool Stool Cyclospora Exam Pending Resulted 09/20/17 16:09 Stool Stool Cryptosporidium Exam Pending Resulted 09/20/17 16:09 Stool Stool Stool Pus (MEAGAN) - Final MODERATE WBC'S Resulted 09/20/17 16:09 Stool Stool Giardia Antigen ([facility]AGAN) Pending Resulted Imaging Last Impressions Abdomen/Pelvis CT 09/19/17 0000 Signed Impressions: Service Date/Time: Tuesday, September 19, 2017 12:48 - CONCLUSION: Less than 50%% proximal SMA stenosis. High grade distal aortic stenosis and critical proximal left iliac stenosis. Small volume ascites in the pelvis which is new. Kvng Lara MD Physical Exam HEENT: Normocephalic; atraumatic; no jaundice. CHEST: CTA CARDIAC: RRR ABDOMEN: Soft, nondistended,mild diffuse tenderness; no hepatosplenomegaly; bowel sounds are present in all four quadrants. EXTREMITIES: No clubbing, cyanosis, or edema. SKIN: Normal; no rash; no jaundice. [employer] DES[employer]: No focal deficits; alert and oriented times three. Assessment and Plan Plan ASSESSMENT: - Acute Colitis with abdominal pain and lower GI bleeding. CT Scan abdomen and pelvis (09/17/17)---> diffuse thickening of the descending colon with pericolonic inflammatory changes and fluid characteristic of a nonspecific colitis. However, in concern there may be a non-ostial stenosis of the SMA and there is dense calcification of the distal aorta in the region of the [place] with market narrowing of the aortic and left iliac luminal diameter. The combination could limit flow to the [place]YD distribution and explain current radiographic findings. I would recommend a CTA of the abdominal vasculature sometime tomorrow (patient received contrast for the current exam) for further evaluation of the regional vasculature. Mass lesions in the lung bases are smaller when compared to the prior exam characteristic of a favorable response to therapy. However there is a new 1.3 cm hypodense lesion in the left hepatic lobe concerning for medical static deposit. Stable hydropic configuration of the gallbladder with distention of the common bile duct measuring 1.1 cm at the pancreatic head. S/P Flexible sigmoidoscopy (09/18/17)---> 1. Diverticulosis sigmoid, descending multiple ulcers in descending, sigmoid consistent with ischemic colitis-biopsy very friable mucosa-2. Retroflexed views revealed internal hemorrhoid 3. Revealed external hemorrhoids. Pathology colonisc mucosa without significant histopathologic abnormality. Distinct features of ischemia are not identified. CTA ()----> Less than 50% proximal SMA stenosis. High grade distal aortic stenosis and critical proximal left iliac stenosis, small volume ascites in the pelvis which is new. S/P Vascular surgery evaluation, signed off with outpatient FU. Yesterday HH Dropped from 12.3/35.5 to 8.9/29.2 and rpt was 8.9. But patient did not receive blood and did not have any obvious bleeding and repeat last night was 12.5. This am it is 12.3/34.8. CDiff negative. Cyclospora, cryptosporidium, giardia pending. Stool with moderate WBC. Tolerating diet. - Lower GIB. S/P sigmoidoscopy as above, no active bleeding at this time. - Odynophagia, Dysphagia. Intermittent, improved after his chemo and radiation , but still having intermittent symptoms. S/P EGD (09/18/17)---> 1. Radiation esophagitis midesophagus,no biopsy concern for bleeding gastritis antrum 2. Retroflexed views revealed a hiatal hernia. PPI. Will need repeat EGD 3 months - Abnormal imaging abdomen and pelvis, raising suspicion for ischemic colitis. CT as above. CTA as above, S/P vascular surgery evaluation, they have signed off. - Chronic constipation. Aggravated by methadone, hydrocodone use. Takes prune juice. - GERD. PPI - N/V, Wt. Loss. Intermittent. Has lost 20 lbs, but states this has been stable more recently. - Stage IV Esophageal cancer with disease to the lung and liver. Dx March 2017. S/P Palliative Chemotherapy, Radiation. Now on immunotherapy with Ramucirumab, which he last took 6-7 days prior to admission. He is followed by Dr. Corona for oncology. - Leukocytosis. Improved. - COPD, HTN, RA, per attending. PLAN: - HALIMA - Cont. Protonix 40mg IV daily - EGD 3 months - Colonoscopy 1 month - FU MARIAM 2 weeks - Gi will sign off, please reconsult as needed - Pt seen and examined by Dr. Doss and myself and this note is written on her behalf Sugey Hernández Sep 21, 2017 12:17
[2017-09-21] MEDS ORDERED: THIA100 PO (12:57)
[2017-09-21] MEDS ORDERED: MAGN400T2 PO (12:57)
[2017-09-21] MEDS ORDERED: NICO7DIS2 T-DERMAL (13:06)
--- NOTE | 2017-09-21 13:06 | HHI.DS ---
Discharge Summary Admission Date Sep 17, 2017 at 23:36 Discharge Date: Sep 21, 2017 Admitting Diagnosis colitis. GI bleed. (1) Dysphagia ICD Code: R13.10 - Dysphagia, unspecified Diagnosis: Principal Status: Acute (2) Chronic abdominal pain ICD Code: R10.9 - Unspecified abdominal pain; G89.29 - Other chronic pain Diagnosis: Principal (3) Primary cancer of esophagus with metastasis to other site ICD Code: C15.9 - Malignant neoplasm of esophagus, unspecified Diagnosis: Principal Procedures EGD performed yesterday found Radiation esophagitis midesophagus no biopsy concern for bleeding, Gastritis antrum, Hiatal Hernia, recommended to continue anti-reflux regimen and continue PPI and follow in three months. Status post Flexible Sigmoidoscopy with biopsy found Diverticulosis sigmoid, multiple ulcers in descending colon and sigmoid consistent with ischemic colitis biopsy taken, Internal hemorrhoids, External Hemorrhoids. Colonoscopy in one month as per Doctor Rosa Doss. Brief History - From Admission 66-year-old male with a past medical history significant for COPD, hypertension and stage IV esophageal cancer status post radiation and currently undergoing chemotherapy with Ramucirumab presents with one episode of black tarry stool and bright red blood per rectum. The patient reports lower abdominal pain, left greater than right, and a history of constipation prior to the bowel movement that he had yesterday. He is followed by Dr. Corona, last immunotherapy 6 days ago. Vital signs stable with a pulse of 74, respiratory rate of 20, blood pressure 176/88 and O2 saturation 98% on room air. CT of the abdomen/pelvis showed diffuse thickening of the descending colon with pericolonic inflammatory changes and fluid characteristic of a nonspecific colitis. There was concern for stenosis of the SMA and dense calcification in the distal aorta in the region of the LLOYD which could limit blood flow. CTA of the abdominal vasculature was recommended as follow-up. CBC/BMP: 09/21/17 0630 09/21/17 0630 Significant Findings Laboratory Tests Test 09/18/17 18:17 09/19/17 04:55 09/20/17 06:55 09/20/17 14:10 Hematocrit 37.0 % (39.0-51.0) 35.5 % (39.0-51.0) 29.2 % (39.0-51.0) 26.0 % (39.0-51.0) Red Blood Count 3.24 MIL/MM3 (4.50-5.90) 2.27 MIL/MM3 (4.50-5.90) 2.29 MIL/MM3 (4.50-5.90) Hemoglobin 12.3 GM/DL (13.0-17.0) 8.9 GM/DL (13.0-17.0) 8.9 GM/DL (13.0-17.0) Mean Corpuscular Volume 109.6 FL (80.0-100.0) 128.6 FL (80.0-100.0) 113.6 FL (80.0-100.0) Mean Corpuscular Hemoglobin 37.9 PG (27.0-34.0) 39.2 PG (27.0-34.0) 38.7 PG (27.0-34.0) Platelet Count 111 TH/MM3 (150-450) 74 TH/MM3 (150-450) 84 TH/MM3 (150-450) Mean Platelet Volume 6.9 FL (7.0-11.0) Neutrophils (%) (Auto) 83.1 % (16.0-70.0) 76.2 % (16.0-70.0) 72.8 % (16.0-70.0) Neutrophils # (Auto) 7.9 TH/MM3 (1.8-7.7) Lymphocytes # (Auto) 0.9 TH/MM3 (1.0-4.8) 0.5 TH/MM3 (1.0-4.8) 0.6 TH/MM3 (1.0-4.8) Activated Partial Thromboplast Time 32.8 SEC (24.3-30.1) Creatinine 0.46 MG/DL (0.60-1.30) 0.51 MG/DL (0.60-1.30) Calcium Level 8.0 MG/DL (8.5-10.1) 7.8 MG/DL (8.5-10.1) Sodium Level 131 MEQ/L (136-145) 129 MEQ/L (136-145) Potassium Level 3.0 MEQ/L (3.5-5.1) 3.0 MEQ/L (3.5-5.1) Chloride Level 97 MEQ/L (98-107) 95 MEQ/L (98-107) Phosphorus Level 1.8 MG/DL (2.5-4.9) 2.1 MG/DL (2.5-4.9) Mean Corpuscular Hemoglobin Concent 30.5 % (32.0-36.0) Monocytes (%) (Auto) 10.0 % (0.0-8.0) 11.4 % (0.0-8.0) Platelet Estimate LOW (NORMAL) LOW (NORMAL) Random Glucose 136 MG/DL (74-106) Test 09/20/17 16:09 09/20/17 18:24 09/20/17 21:30 09/21/17 06:30 Hemoglobin 12.5 GM/DL (13.0-17.0) 12.3 GM/DL (13.0-17.0) Hematocrit 35.2 % (39.0-51.0) 34.8 % (39.0-51.0) Potassium Level 3.4 MEQ/L (3.5-5.1) Red Blood Count 3.17 MIL/MM3 (4.50-5.90) Mean Corpuscular Volume 109.9 FL (80.0-100.0) Mean Corpuscular Hemoglobin 38.8 PG (27.0-34.0) Platelet Count 114 TH/MM3 (150-450) Monocytes (%) (Auto) 13.9 % (0.0-8.0) Blood Urea Nitrogen 5 MG/DL (7-18) Creatinine 0.58 MG/DL (0.60-1.30) Random Glucose 108 MG/DL (74-106) Total Protein 5.7 GM/DL (6.4-8.2) Albumin 2.6 GM/DL (3.4-5.0) Calcium Level 8.0 MG/DL (8.5-10.1) Sodium Level 132 MEQ/L (136-145) Imaging Last Impressions Abdomen/Pelvis CT 09/19/17 0000 Signed Impressions: Service Date/Time: Tuesday, September 19, 2017 12:48 - CONCLUSION: Less than 50%% proximal SMA stenosis. High grade distal aortic stenosis and critical proximal left iliac stenosis. Small volume ascites in the pelvis which is new. Kvng Lara MD PE at Discharge GENERAL: No acute distress. SKIN: No rashes, ecchymoses or lesions. HEAD: Atraumatic. Normocephalic. EYES: Pupils equal round and reactive. Extraocular motions intact. No scleral icterus. No injection or drainage. NECK: supple, no JVD no lymphadenopathy. CARDIOVASCULAR: Regular rate and rhythm without murmurs, gallops, or rubs. RESPIRATORY: Clear to auscultation. GASTROINTESTINAL: Abdomen soft, nondistended. MUSCULOSKELETAL: Extremities without clubbing, cyanosis, or edema. NEUROLOGICAL: Awake and alert. No focal deficits. Hospital Course This is a pleasant 66 y/o male with COPD, hypertension and stage IV esophageal cancer status post radiation and currently undergoing chemotherapy with Ramucirumab presents with one episode of black tarry stool and bright red blood per rectum. The patient reports lower abdominal pain, left greater than right, and a history of constipation prior to the bowel movement that he had yesterday. He is followed by Dr. Corona, CT of the abdomen/pelvis showed diffuse thickening of the descending colon with pericolonic inflammatory changes and fluid characteristic of a nonspecific colitis. There was concern for stenosis of the SMA and dense calcification in the distal aorta in the region of the LLOYD which could limit blood flow. he also has Alcohol abuse history, RA, GERD, 09/18: Seen in his bedroom in the presence of nurse, he will have probable procedure later today. 09/19: Patient consulted by GI specialist with diagnosis of Acute colitis/lower GI bleed, recommended to continue Flagyl/Cipro Flexible Sigmoidoscopy, continue PPIs, Stage IV Esohageal Cancer with disease to the lung and liver, EGD recommended, asked for Vascular Surgery specialit consult, Followed by his Primary marketing communications specialist Doctor Kanika Corona he is on Palliative Chemotherapy with Ramucirumab, discussed with the patient about the Atherosclerotic disease is evident on CT scan and calcifications in Aorta and stenosis of the superior mesenteric artery, as per Oncology improving lung lesions recommended SCDs for DVT prophylaxis and activity. EGD performed yesterday found Radiation esophagitis midesophagus no biopsy concern for bleeding, Gastritis antrum, Hiatal Hernia, recommended to continue anti-reflux regimen and continue PPI and follow in three months. Status post Flexible Sigmoidoscopy with biopsy found Diverticulosis sigmoid, multiple ulcers in descending colon and sigmoid consistent with ischemic colitis biopsy taken, Internal hemorrhoids, External Hemorrhoids. Colonoscopy in one month as per Doctor Rosa Doss. Vascular marketing analytics specialist following awaiting results of CTA of the Abdomen and Pelvis. 09/20: has thrombocytopenia, and worsened Anemia Hemoglobin 8.9 in am today, Vascular surgery discussed findings on CTA with patient and recommended follow up as outpatient and signed off the case, okay to discharge, awaiting final recommendations by GI specialist. 09/21: Stable in his bedroom, no further GI bleed, improving his Abdominal pain , discussed with his Mrs. Zee Paul she states he Drinks alcohol since he wakes up until he goes to sleep, also smoke cigarettes and Marijuana. at this time no nausea, vomit or diarrhea. okay from GI standpoint to discharge Home. Assessment and Plan 66-year-old male with a past medical history significant for stage IV esophageal cancer, currently undergoing immunotherapy, COPD, alcohol abuse, and hypertension presents with black stools and bright red blood per rectum with lower abdominal pain. 1. Lower GI bleed Patient consulted by GI specialist with diagnosis of Acute colitis/lower GI bleed, recommended to continue Flagyl/Cipro Flexible Sigmoidoscopy, continue PPIs, Stage IV Esohageal Cancer with disease to the lung and liver, EGD recommended, asked for Vascular Surgery specialit consult, Followed by his Primary marketing communications specialist Doctor Kanika Corona he is on Palliative Chemotherapy with Ramucirumab, discussed with the patient about the Atherosclerotic disease is evident on CT scan and calcifications in Aorta and stenosis of the superior mesenteric artery, as per Oncology improving lung lesions recommended SCDs for DVT prophylaxis and activity. EGD performed yesterday found Radiation esophagitis midesophagus no biopsy concern for bleeding, Gastritis antrum, Hiatal Hernia, recommended to continue anti-reflux regimen and continue PPI and follow in three months. Status post Flexible Sigmoidoscopy with biopsy found Diverticulosis sigmoid, multiple ulcers in descending colon and sigmoid consistent with ischemic colitis biopsy taken, Internal hemorrhoids , External Hemorrhoids. Colonoscopy in one month as per Doctor Rosa Doss. will follow with Doctor Doss at discharge, okay from GI standpoint for discharge. 2. Abdominal pain/colitis CT of the abdomen/pelvis showed nonspecific colitis of the descending colon with concern for stenosis of the SMA and dense calcification in the distal aorta in the region of the LLOYD CTA of the abdomen/pelvis pending Left iliac and distal aortic with critical stenosis, recommended to follow as outpatient with Vascular surgery at this time clear for discharge. continue antibiotics for Colitis. discontinued antibiotics by GI specialist. 3. Alcohol abuse Patient drinks approximately one sixpack per day CIWA protocol Folate/Thiamine 4. Tobacco dependence Strongly recommended to stop smoking, continue Bronchodilator, Mucolytic and incentive spirometry 5. Hypokalemia replaced with 40 meq of Potassium chloride. also continue Magnesium Oxide 400 mg daily. 6. Marijuana abuse strongly recommended to stop behavior. DVT prophylaxis SCDs Discussed with nurse Mr. Zhang and with His Mrs. Zee Paul she states he Drinks alcohol since he wakes up until he goes to sleep, also smoke cigarettes and Marijuana. and that he has already Pain medicines at home and no need for anything. Discharge Planning Discharge Home, discussed with patient about his bad habits he receive the counseling and state will stop smoking and drinking alcohol. Pt Condition on Discharge: Good Discharge Disposition: Discharge Home Discharge Time: <= 30 minutes Discharge Instructions DIET: Follow Instructions for: Heart Healthy Diet Activities you can perform: Regular-No Restrictions Trevon Worley MD Sep 21, 2017 13:06
[2017-09-21] MEDS ORDERED: PANTOPRAZOLE SOD 40 MG DELAYED RELEASE TAB PO SCH (21:00)
== END 2017-09-21 14:44 | disposition home or self-care (01) | DRG 392 ==
LOC: NEPC 17:08 → NEDA 23:36 → N05A 09-18 01:00
PROVIDERS: ADMIT Internal Medicine; ATTEND Internal Medicine
PROC: 0DBN8ZX Excision of Sigmoid Colon, Via Natural or Artificial Opening Endoscopic, Diagnostic (ICD-10-PCS; 2017-09-18)
PROC: 0DJ08ZZ Inspection of Upper Intestinal Tract, Via Natural or Artificial Opening Endoscopic (ICD-10-PCS; principal; 2017-09-18 16:16)
PROC: 0DBM8ZX Excision of Descending Colon, Via Natural or Artificial Opening Endoscopic, Diagnostic (ICD-10-PCS; 2017-09-18 16:16)
DX: K52.9 Noninfective gastroenteritis and colitis, unspecified (principal); K55.9 Vascular disorder of intestine, unspecified; R64 Cachexia; K63.3 Ulcer of intestine; C78.00 Secondary malignant neoplasm of unspecified lung; C78.7 Secondary malignant neoplasm of liver and intrahepatic bile duct; C15.9 Malignant neoplasm of esophagus, unspecified; D69.6 Thrombocytopenia, unspecified; Z68.1 Body mass index [BMI] 19.9 or less, adult; R13.10 Dysphagia, unspecified; D64.9 Anemia, unspecified; I10 Essential (primary) hypertension; F10.10 Alcohol abuse, uncomplicated; F17.210 Nicotine dependence, cigarettes, uncomplicated; E87.6 Hypokalemia; G89.3 Neoplasm related pain (acute) (chronic); I35.0 Nonrheumatic aortic (valve) stenosis; J44.9 Chronic obstructive pulmonary disease, unspecified; K20.8 Other esophagitis; K44.9 Diaphragmatic hernia without obstruction or gangrene; K57.30 Diverticulosis of large intestine without perforation or abscess without bleeding; K59.03 Drug induced constipation; T40.605A Adverse effect of unspecified narcotics, initial encounter; K64.4 Residual hemorrhoidal skin tags; K64.8 Other hemorrhoids; M06.9 Rheumatoid arthritis, unspecified; M54.9 Dorsalgia, unspecified; Y84.2 Radiological procedure and radiotherapy as the cause of abnormal reaction of the patient, or of later complication, without mention of misadventure at the time of the procedure; Z92.3 Personal history of irradiation; Z79.891 Long term (current) use of opiate analgesic
CPT/HCPCS: 74174; 74177; 80048; 80053; 81001; 82948; 83605; 83735; 84100; 84132; 85014; 85018; 85025; 85610; 85730; 87205; 87207; 87328; 87329; 87493; 87506; 88305; 90471; 90472; 90686; 90732; 93005; 96374; 96375; J1170; C9113; G0008; G0009; J0744; J1642; J2060; J2250; J2270; J2405; J3411; J3475; J3480; J7030; J7040; J7070; Q2038; Q9967

== ENCOUNTER 2018-01-11 11:43 | Inpatient (IN) | payer OTHER, MEDICARE ==
[~2018-01-11] VITALS: Ht 167.6 cm; Wt 55.0 kg
[~2018-01-11 11:43] MED LIST changes: +MAGN400T2 PO; +NICO7DIS2 T-DERMAL; +THIA100 PO; +ZOFR4TAB PO
[2018-01-11 12:00] VITALS: BP 129/72; PULSE 119; RESP 18; TEMP 99.3; O2SAT 100
[2018-01-11] MEDS ORDERED: SODIUM CHLOR 0.9% 1000 ML INJ 1,000 ML IV SCH (15:25)
[2018-01-11] MEDS ORDERED: ONDANSETRON HCL 4 MG/2 ML VIAL IVP ONE (15:30)
[2018-01-11] MEDS ORDERED: HYDROmorphone HCL PF 1 MG/ML VIAL IVS ONE (15:30)
--- NOTE | 2018-01-11 15:31 | PD ---
HPI Chief Complaint: Abdominal Pain Time Seen by Provider: 15:04 Travel History International Travel<30 days: No Contact w/Intl Traveler<30days: No Traveled to known affect area: No History of Present Illness HPI 67-year-old male with a history of esophageal cancer with metastases to lungs and liver presents emergency department complaining of abdominal pain since yesterday. States that he woke up this morning with worsening pain and bloating decided to come to the emergency department today. Says his abdominal pain is diffuse and constant with intermittent severity. Described as aching with occasional sharp, worse with movement. Says he has had "liquid stool" for 2 weeks and is now solid stool since then. He believes that he may be "stopped up" as a result of his chemotherapy drug. Says he has had chronic nausea vomiting but had an episode of bilious vomiting once today. Says he has a history of COPD but denies any cardiac history. He follows Dr. Corona for his cancer. PFSH Past Medical History Autoimmune Disease: No Anxiety: Yes Depression: No Cancer: Yes (ESOPHAGEAL/LUNG W/ METS TO LIVER) Cardiovascular Problems: Yes High Cholesterol: Yes Chemotherapy: Yes COPD: Yes Diabetes: No Endocrine: No Gastrointestinal Disorders: Yes (ALCOHOLISM) GERD: No Genitourinary: No Hepatitis: No Hiatal Hernia: No Hypertension: No Immune Disorder: No Implanted Vascular Access Dvce: Yes Musculoskeletal: Yes Neurologic: No Psychiatric: No Reproductive: No Respiratory: Yes Radiation Therapy: Yes Thyroid Disease: No Ulcer: No Past Surgical History Abdominal Surgery: Yes (appendectomy) AICD: No Appendectomy: Yes Cardiac Surgery: No Ear Surgery: No Endocrine Surgery: No Eye Surgery: No Genitourinary Surgery: No Gynecologic Surgery: No Joint Replacement: No Neurologic Surgery: No Oral Surgery: Yes (CYST SINUS,TONSILS) Pacemaker: No Thoracic Surgery: No Other Surgery: Yes Social History Alcohol Use: No Tobacco Use: Yes Substance Use: Yes (betzaidajuanna) Allergies-Medications (Allergen,Severity, Reaction): Coded Allergies: No Known Allergies (Unverified Allergy, Unknown, 01/11/18) Reported Meds & Prescriptions Reported Meds & Active Scripts Active Magnesium Oxide 400 Mg Tab 400 Mg PO DAILY Hydrocodone-Acetaminophen Liq 7.5-325 Mg/15 Ml Soln 10 Ml PO Q6H PRN Methadone (Methadone HCl) 5 Mg Tab 5 Mg PO DAILY Reported Multi-Vitamin Daily (Multiple Vitamin) 1 Tab Tab 1 Tab PO DAILY Protonix (Pantoprazole Sodium) 40 Mg Tab 40 Mg PO DAILY Review of Systems Except as stated in HPI: all other systems reviewed are Neg Physical Exam Narrative GENERAL: Well-developed, well-nourished resting comfortably in bed SKIN: Focused skin assessment warm/dry. HEAD: Atraumatic. Normocephalic. EYES: Pupils equal and round. No scleral icterus. No injection or drainage. ENT: No nasal bleeding or discharge. Mucous membranes pink and moist. NECK: Trachea midline. No JVD. CARDIOVASCULAR: Regular rate and rhythm. No murmur appreciated. RESPIRATORY: No accessory muscle use. Clear to auscultation. Breath sounds equal bilaterally. GASTROINTESTINAL: Abdomen soft, diffusely tender, focused in the right abdominal region, tender to palpation and percussion, hypoactive bowel sounds MUSCULOSKELETAL: No obvious deformities. No clubbing. No cyanosis. No edema. Homans sign negative NEUROLOGICAL: Awake and alert. No obvious cranial nerve deficits. Motor grossly within normal limits. Normal speech. PSYCHIATRIC: Appropriate mood and affect; insight and judgment normal. Data Data Last Documented VS Vital Signs Date Time Temp Pulse Resp B/P (MAP) Pulse Ox O2 Delivery O2 Flow Rate FiO2 01/11/18 15:01 18 01/11/18 12:00 99.3 119 129/72 (91) 100 Orders Orders Complete Blood Count With Diff (01/11/18 15:25) Comprehensive Metabolic Panel (01/11/18 15:25) Lipase (01/11/18 15:25) Prothrombin Time / Inr (Pt) (01/11/18 15:25) Act Partial Throm Time (Ptt) (01/11/18 15:25) Urinalysis - C+S If Indicated (01/11/18 15:25) Ct Abd/Pel W Iv Contrast(Rout) (01/11/18 15:25) NPO (01/11/18 15:25) Ondansetron Inj (Zofran Inj) (01/11/18 15:30) Sodium Chlor 0.9% 1000 Ml Inj (Ns 1000 M (01/11/18 15:25) Chest, Single Ap (01/11/18 15:25) Hydromorphone Pf Inj (Dilaudid Pf Inj) (01/11/18 16:00) Potassium Chloride (Kcl) (01/11/18 17:00) Iohexol 350 Inj (Omnipaque 350 Inj) (01/11/18 18:25) Promethazine Inj (Phenergan Inj) (01/11/18 18:45) Sodium Chlor 0.9% 1000 Ml Inj (Ns 1000 M (01/11/18 18:45) Admit Order (Ed Use Only) (01/11/18 19:28) Labs Laboratory Tests Test 01/11/18 15:41 01/11/18 17:11 White Blood Count 5.2 TH/MM3 Red Blood Count 3.04 MIL/MM3 Hemoglobin 11.6 GM/DL Hematocrit 33.3 % Mean Corpuscular Volume 109.5 FL Mean Corpuscular Hemoglobin 38.3 PG Mean Corpuscular Hemoglobin Concent 35.0 % Red Cell Distribution Width 14.3 % Platelet Count 227 TH/MM3 Mean Platelet Volume 6.7 FL Neutrophils (%) (Auto) 74.6 % Lymphocytes (%) (Auto) 5.6 % Monocytes (%) (Auto) 19.3 % Eosinophils (%) (Auto) 0.3 % Basophils (%) (Auto) 0.2 % Neutrophils # (Auto) 3.9 TH/MM3 Lymphocytes # (Auto) 0.3 TH/MM3 Monocytes # (Auto) 1.0 TH/MM3 Eosinophils # (Auto) 0.0 TH/MM3 Basophils # (Auto) 0.0 TH/MM3 CBC Comment AUTO DIFF Differential Total Cells Counted 100 Neutrophils % (Manual) 39 % Band Neutrophils % 32 % Lymphocytes % 12 % Monocytes % 15 % Neutrophils # (Manual) 3.8 TH/MM3 Metamyelocytes 2 % Differential Comment FINAL DIFF MANUAL Toxic Granulation 2+ Platelet Estimate NORMAL Platelet Morphology Comment NORMAL Prothrombin Time 11.6 SEC Prothromb Time International Ratio 1.1 RATIO Activated Partial Thromboplast Time 28.7 SEC Blood Urea Nitrogen 16 MG/DL Creatinine 1.15 MG/DL Random Glucose 78 MG/DL Total Protein 6.5 GM/DL Albumin 2.5 GM/DL Calcium Level 8.6 MG/DL Alkaline Phosphatase 53 U/L Aspartate Amino Transf (AST/SGOT) 12 U/L Alanine Aminotransferase (ALT/SGPT) 16 U/L Total Bilirubin 0.6 MG/DL Sodium Level 126 MEQ/L Potassium Level 3.4 MEQ/L Chloride Level 88 MEQ/L Carbon Dioxide Level 25.6 MEQ/L Anion Gap 12 MEQ/L Estimat Glomerular Filtration Rate 64 ML/MIN Total Creatine Kinase 30 U/L Lipase 50 U/L Urine Color DARK-BROWN Urine Turbidity HAZY Urine pH 5.5 Urine Specific [place]ch 1.028 Urine Protein 30 mg/dL Urine Glucose (UA) NEG mg/dL Urine Ketones 10 mg/dL Urine Occult Blood NEG Urine Nitrite NEG Urine Bilirubin NEG Urine Urobilinogen 4.0 MG/DL Urine Leukocyte Esterase TRACE Urine WBC 7 /hpf Urine Hyaline Casts INNUM /lpf Urine Mucus MANY /lpf Microscopic Urinalysis Comment CULT NOT INDICATED MDM Medical Decision Making Medical Screen Exam Complete: Yes Emergency Medical Condition: Yes Differential Diagnosis SBO, ileus, SBP, constipation Narrative Course 67-year-old male with a history of esophageal cancer with metastases to liver presents emergency department for evaluation of abdominal pain, nausea and vomiting for [address] Corona's office was concerned about a bowel obstruction secondary to constipation which is why is here today. Patient does have diffuse abdominal pain. Labs and imaging studies ordered. Upon initial evaluation, patient vomited a significant amount of bilious fluid. Patient is made n.p.o. Dilaudid for abdominal pain, patient says this works well for his pain. Zofran and Phenergan for nausea. A total of 2 L normal saline IV fluid bolus administered for hydration. Potassium for mild hypokalemia. 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 Patient is nausea and vomiting is well controlled with Zofran and Phenergan. Will consider NG tube if further vomiting occurs. CBC & BMP Diagram 01/11/18 15:41 Total Protein 6.5, Albumin 2.5 L, Calcium Level 8.6, Alkaline Phosphatase 53, Aspartate Amino Transf (AST/SGOT) 12 L, Alanine Aminotransferase (ALT/SGPT) 16, Total Bilirubin 0.6 Last Impressions Chest X-Ray 01/11/18 1525 Signed Impressions: Service Date/Time: Thursday, January 11, 2018 15:41 - CONCLUSION: 1. Enlarging right upper lobe mass measuring 3.2 cm. 2. No significant subdiaphragmatic free air. Cuco Irving MD Abdomen/Pelvis CT 01/11/18 1525 Signed Impressions: Service Date/Time: Thursday, January 11, 2018 18:18 - CONCLUSION: 1. There is at least a partial distal small bowel obstruction with diffuse proximal dilatation of small bowel and air-fluid levels. There is mural thickening and luminal narrowing of approximately 10 cm length of terminal ileum suspicious for some form of terminal ileitis. 2. Increase in size of left lung nodule and left hepatic lobe nodule suspicious for metastatic disease. These were noted on prior examinations. Usama Burton MD He does have mild hyponatremia and mild hypokalemia which appears stable. He has chronic anemia. He will be admitted with a partial small bowel obstruction. Pt and family agreed with plan and agreed to stay for evaluation. Diagnosis Primary Impression: Small bowel obstruction Admitting Information Admitting Physician Requests: Admit Condition: Stable Gisell Rodríguez Jan 11, 2018 15:31
[2018-01-11 15:55] LABS: AUTOMATED NEUTROPHIL # 3.9 TH/MM3 (1.8-7.7); BASOPHIL % 0.2 % (0.0-2.0); EOSINOPHIL % 0.3 % (0.0-4.0); HEMATOCRIT 33.3 % (39.0-51.0); HEMOGLOBIN 11.6 GM/DL (13.0-17.0); LYMPH % 5.6 % (9.0-44.0); LYMPHOCYTE # 0.3 TH/MM3 (1.0-4.8); MEAN CELL VOLUME 109.5 FL (80.0-100.0); MEAN CORPUSCULAR HEMOGLOBIN 38.3 PG (27.0-34.0); MEAN PLATELET VOLUME 6.7 FL (7.0-11.0); MONO % 19.3 % (0.0-8.0); NEUT % 74.6 % (16.0-70.0); PLATELET COUNT 227 TH/MM3 (150-450); RED BLOOD COUNT 3.04 MIL/MM3 (4.50-5.90); RED CELL DISTRIBUTION WIDTH 14.3 % (11.6-17.2); WHITE BLOOD COUNT 5.2 TH/MM3 (4.0-11.0)
[2018-01-11] MEDS ORDERED: HYDROmorphone HCL PF 2 MG/ML VIAL IV PUSH ONE (16:00)
--- NOTE | 2018-01-11 16:02 | RADRPT ---
EXAM DATE/TIME: 01/11/2018 15:41 [facility] COMPARISON: CT THORAX W/O CONTRAST, September 28, 2017, 13:36. INDICATIONS : Evaluate for free air. MEDICAL HISTORY : Cardiovascular disease. Esophageal ca, rad therapy, chemo SURGICAL HISTORY : Appendectomy. Infues a port. ENCOUNTER: Initial ACUITY: 1 day PAIN SCORE: 6/10 LOCATION: Bilateral chest FINDINGS: Left IJ Intfep-e-Safq with tip in the SVC. Interval enlargement of patient's right upper lobe lung ma ss now measuring 3.2 cm. Cardiomediastinal contours are within normal limits. No gross free air benea th the diaphragms. Bony thorax is intact. CONCLUSION: 1. Enlarging right upper lobe mass measuring 3.2 cm. 2. No significant subdiaphragmatic free air. Cuco Irving MD on January 11, 2018 at 15:59 Board Certified Radiologist. This report was verified electronically.
[2018-01-11 16:08] LABS: INTERNATIONAL NORMALIZED RATIO 1.1 RATIO; PROTHROMBIN TIME - PATIENT 11.6 SEC (9.8-11.6)
[2018-01-11 16:28] LABS: ALBUMIN 2.5 GM/DL (3.4-5.0); ALT (GPT) 16 U/L (12-78); BICARBONATE 25.6 MEQ/L (21.0-32.0); BLOOD UREA NITROGEN 16 MG/DL (7-18); CALCIUM 8.6 MG/DL (8.5-10.1); CHLORIDE 88 MEQ/L (98-107); CREATININE 1.15 MG/DL (0.60-1.30); GLOMERULAR FILTRATION RATE 64 ML/MIN (>89); GLUCOSE,RANDOM 78 MG/DL (74-106); SODIUM (NA) 126 MEQ/L (136-145)
[2018-01-11 16:30] LABS: ALKALINE PHOSPHATASE 53 U/L (45-117); AST (GOT) 12 U/L (15-37); TOTAL BILIRUBIN ADULT 0.6 MG/DL (0.2-1.0); TOTAL PROTEIN 6.5 GM/DL (6.4-8.2)
[2018-01-11] MEDS ORDERED: POTASSIUM CHLORIDE 10 MEQ CONTROLLED RELEASE TAB PO ONE (17:00)
[2018-01-11 17:39] LABS: BLOOD, URINE NEG (NEG); GLUCOSE,URINE NEG (NEG); HYALINE CAST, URINE INNUM /lpf (RARE); KETONE, URINE 10 mg/dL (NEG); MUCUS URINE MANY /lpf (OCC); NITRITE,URINE NEG (NEG); PH, URINE 5.5 (5.0-8.5); URINE LEUKOCYTE ESTERASE TRACE (NEG)
[2018-01-11 17:42] LABS: URINE COLOR DARK-BROWN (YELLW/STRAW)
[2018-01-11 17:49] LABS: BILIRUBIN, URINE NEG (NEG)
[2018-01-11] MEDS ORDERED: IOHEXOL 350 MG/ML 10 ML VIAL (for RAD DIAG) IVCONTRAST ONE (18:25)
[2018-01-11 18:36] LABS: BANDS 32 % (0-6); LYMPHOCYTES 12 % (9-44); METAMYELOCYTES 2 % (0-1); MONOCYTES 15 % (0-8); NEUTROPHIL # MANUAL DIFF 3.8 TH/MM3 (1.8-7.7); POLYS (SEG NEUTROPHILS) 39 % (16-70); TOXIC GRANULATION 2+ (NORMAL)
[2018-01-11] MEDS ORDERED: SODIUM CHLOR 0.9% 1000 ML INJ 1,000 ML IV ONE (18:45)
[2018-01-11] MEDS ORDERED: PROMETHAZINE INJ 25 MG/ML VIAL IM ONE (18:45)
--- NOTE | 2018-01-11 18:54 | RADRPT ---
EXAM DATE/TIME: 01/11/2018 18:18 [facility] COMPARISON: CT ABDOMEN & PELVIS W/O CONTRAST, September 28, 2017, 13:39. INDICATIONS : Abdominal pain. IV CONTRAST: 100 cc IV ORAL CONTRAST: No oral contrast ingested. RADIATION DOSE: 4.53 CTDIvol (mGy) MEDICAL HISTORY : Chronic obstructive pulmonary disease. Carcinoma, lung. Carcinoma, hepatocellular. SURGICAL HISTORY : Appendectomy. ENCOUNTER: Initial ACUITY: 1 day PAIN SCALE: 7/10 LOCATION: Bilateral upper quadrant lower quadrant TECHNIQUE: Volumetric scanning of the abdomen and pelvis was performed. Using automated exposure control and ad justment of the mA and/or kV according to patient size, radiation dose was kept as low as reasonably achievable to obtain optimal diagnostic quality images. DICOM format image data is available electro nically for review and comparison. FINDINGS: Compare September 28, 2017. Left lower lobe peripheral pulmonary nodule has increased in size and now m easures about 12 mm in diameter compared with previous measurement of about 4 mm. Lesion left lobe liver measures about 17 mm in diameter which is slightly larger than on the previous exam in September. These findings are suspicious for metastatic disease. Spleen, adrenals, kidneys and pancreas demonstrate no acute findings. No calcified gallstones. There is interval development of diffuse dilatation of small bowel. The terminal ileum appears thicke chiqui with luminal narrowing. There is gas and fluid in the colon. Small amount free fluid present in the pelvis. No free air. CONCLUSION: 1. There is at least a partial distal small bowel obstruction with diffuse proximal dilatation of sma ll bowel and air-fluid levels. There is mural thickening and luminal narrowing of approximately 10 cm length of terminal ileum suspicious for some form of terminal ileitis. 2. Increase in size of left lung nodule and left hepatic lobe nodule suspicious for metastatic diseas e. These were noted on prior examinations. Usama Burton MD on January 11, 2018 at 18:42 Board Certified Radiologist. This report was verified electronically.
[2018-01-11] MEDS ORDERED: MAGNESIUM HYDROXIDE SUSP 30 ML CUP PO PRN (19:30)
[2018-01-11] MEDS ORDERED: BISACODYL 10 MG SUPP RECTAL PRN (19:30)
[2018-01-11] MEDS ORDERED: LACTULOSE SYRUP 20 GM/30 ML CUP PO PRN (19:30)
[2018-01-11] MEDS ORDERED: SENNOSIDES 8.6 MG TAB PO PRN (19:30)
[2018-01-11] MEDS ORDERED: SODIUM CHLORIDE 0.9% FLUSH 10 ML FLUSH IV FLUSH PRN (19:30)
--- NOTE | 2018-01-11 19:32 | HHI.HP ---
[facility] Amilcar Baeza MD Admission Diagnosis small bowel obstruction Diagnoses: (1) SBO (small bowel obstruction) Diagnosis: Principal (2) Ileitis Diagnosis: Principal (3) Hyponatremia Diagnosis: Principal (4) Esophageal cancer Diagnosis: Principal Travel History International Travel<30 Days: No Contact w/Intl Traveler <30 Da: No Traveled to Known Affected Are: No History of Present Illness This is a 67-year-old male with PMH of Anxiety, Metastatic Esophageal CA, COPD and Tobacco Abuse who presented to the ER with complaints of abdominal pain x1 day. Reports pain is generalized, intermittent, cramping, 8/10, non-radiating, associated w/ nausea and vomiting. Denies fever or chills. Currently on Chemo , following w/ Dr. Corona, reports h/o constipation since chemo, liquid stool x2 days. On arrival, BP 129/72, HR 119, O2 sat 100% on RA, Temp 99.3. WBC 5.2 , bandemia 32%. Na 126. K+ 3.4. INR 1.1. UA negative for UTI. CXR with enlarging right upper lobe mass measuring 3.[address] Abdomen/Pelvis with partial distal small bowel obstruction and diffuse proximal dilatation of small bowel, terminal ileitis. S/p Zofran w/ resolution of N/V, no NGT placed. Review of Systems Except as stated in HPI: all other systems reviewed are Neg ROS: 14 point review of systems otherwise negative. Past Family Social History Past Medical History PMH: Anxiety, Metastatic Esophageal CA, COPD and Tobacco Abuse Past Surgical History PAST SURGICAL HISTORY: Appendectomy, Tonsillectomy Allergies: Coded Allergies: No Known Allergies (Unverified Allergy, Unknown, 01/11/18) Family History PAST FAMILY HISTORY: Reviewed. No h/o DM or CAD Social History PAST SOCIAL HISTORY: Negative for alcohol. Positive for tobacco. + Marijuana. Physical Exam Vital Signs Vital Signs Date Time Temp Pulse Resp B/P (MAP) Pulse Ox O2 Delivery O2 Flow Rate FiO2 01/11/18 15:01 18 01/11/18 12:00 99.3 119 18 129/72 (91) 100 Physical Exam PE: GENERAL: Thin, chronically ill-appearing middle-aged male in no acute distress. HEENT: PERRLA, EOMI. No scleral icterus or conjunctival pallor. No lid lag or facial droop. CARDIOVASCULAR: Regular rate and rhythm. No obvious murmurs to auscultation. No chest tenderness to palpation. RESPIRATORY: No obvious rhonchi or wheezing. Clear to auscultation. Breath sounds equal bilaterally. GASTROINTESTINAL: Abdomen soft, generalized tenderness to palpation, nondistended. BS normal. MUSCULOSKELETAL: Extremities without clubbing, cyanosis, or edema. No obvious deformities. NEUROLOGICAL: Awake, alert and oriented x4. No focal neurologic deficits. Moving both upper and lower extremities spontaneously. Laboratory Laboratory Tests Test 01/11/18 15:41 01/11/18 17:11 White Blood Count 5.2 Red Blood Count 3.04 Hemoglobin 11.6 Hematocrit 33.3 Mean Corpuscular Volume 109.5 Mean Corpuscular Hemoglobin 38.3 Mean Corpuscular Hemoglobin Concent 35.0 Red Cell Distribution Width 14.3 Platelet Count 227 Mean Platelet Volume 6.7 Neutrophils (%) (Auto) 74.6 Lymphocytes (%) (Auto) 5.6 Monocytes (%) (Auto) 19.3 Eosinophils (%) (Auto) 0.3 Basophils (%) (Auto) 0.2 Neutrophils # (Auto) 3.9 Lymphocytes # (Auto) 0.3 Monocytes # (Auto) 1.0 Eosinophils # (Auto) 0.0 Basophils # (Auto) 0.0 CBC Comment AUTO DIFF Differential Total Cells Counted 100 Neutrophils % (Manual) 39 Band Neutrophils % 32 Lymphocytes % 12 Monocytes % 15 Neutrophils # (Manual) 3.8 Metamyelocytes 2 Differential Comment FINAL DIFF MANUAL Toxic Granulation 2+ Platelet Estimate NORMAL Platelet Morphology Comment NORMAL Prothrombin Time 11.6 Prothromb Time International Ratio 1.1 Activated Partial Thromboplast Time 28.7 Blood Urea Nitrogen 16 Creatinine 1.15 Random Glucose 78 Total Protein 6.5 Albumin 2.5 Calcium Level 8.6 Alkaline Phosphatase 53 Aspartate Amino Transf (AST/SGOT) 12 Alanine Aminotransferase (ALT/SGPT) 16 Total Bilirubin 0.6 Sodium Level 126 Potassium Level 3.4 Chloride Level 88 Carbon Dioxide Level 25.6 Anion Gap 12 Estimat Glomerular Filtration Rate 64 Lipase 50 Urine Color DARK-BROWN Urine Turbidity HAZY Urine pH 5.5 Urine Specific [place] 1.028 Urine Protein 30 Urine Glucose (UA) NEG Urine Ketones 10 Urine Occult Blood NEG Urine Nitrite NEG Urine Bilirubin NEG Urine Urobilinogen 4.0 Urine Leukocyte Esterase TRACE Urine WBC 7 Urine Hyaline Casts INNUM Urine Mucus MANY Microscopic Urinalysis Comment CULT NOT INDICATED Result Diagram: 01/11/18 1541 01/11/18 1541 Caprini VTE Risk Assessment Caprini VTE Risk Assessment: No/Low Risk (score <= 1) Caprini Risk Assessment Model Point Value = 1 Point Value = 2 Point Value = 3 Point Value = 5 Age 41-60 Minor surgery BMI > 25 kg/m2 Swollen legs Varicose veins or History of unexplained or recurrent spontaneous Oral contraceptives or hormone replacement Sepsis (< 1 month) Serious lung disease, including pneumonia (< 1 month) Abnormal pulmonary function Acute myocardial infarction Congestive heart failure (< 1 month) History of inflammatory bowel disease Medical patient at bed rest Age 61-74 Arthroscopic surgery Major open surgery (> 45 min) Laparoscopic surgery (> 45 min) Malignancy Confined to bed (> 72 hours) Immobilizing plaster cast Central venous access Age >= 75 History of VTE Family history of VTE Factor V Leiden Prothrombin [id number] Lupus anticoagulant Anticardiolipin antibodies Elevated serum homocysteine Heparin-induced thrombocytopenia Other congenital or acquired thrombophilia Stroke (< 1 month) Elective arthroplasty Hip, pelvis, or leg fracture Acute spinal cord injury (< 1 month) Prophylaxis Regimen Total Risk Factor Score Risk Level Prophylaxis Regimen 0-1 Low Early ambulation 2 Moderate Order ONE of the following: *Sequential Compression Device (SCD) *Heparin 5000 units SQ BID 3-4 Higher Order ONE of the following medications: *Heparin 5000 units SQ TID *Enoxaparin/Lovenox 40 mg SQ daily (WT < 150 kg, CrCl > 30 mL/min) *Enoxaparin/Lovenox 30 mg SQ daily (WT < 150 kg, CrCl > 10-29 mL/min) *Enoxaparin/Lovenox 30 mg SQ BID (WT < 150 kg, CrCl > 30 mL/min) AND/OR *Sequential Compression Device (SCD) 5 or more Highest Order ONE of the following medications: *Heparin 5000 units SQ TID (Preferred with Epidurals) *Enoxaparin/Lovenox 40 mg SQ daily (WT < 150 kg, CrCl > 30 mL/min) *Enoxaparin/Lovenox 30 mg SQ daily (WT < 150 kg, CrCl > 10-29 mL/min) *Enoxaparin/Lovenox 30 mg SQ BID (WT < 150 kg, CrCl > 30 mL/min) AND *Sequential Compression Device (SCD) Assessment and Plan Problem List: (1) SBO (small bowel obstruction) ICD Code: K56.609 - Unspecified intestinal obstruction, unspecified as to partial versus complete obstruction (2) Ileitis ICD Code: K52.9 - Noninfective gastroenteritis and colitis, unspecified (3) Hyponatremia ICD Code: E87.1 - Hypo-osmolality and hyponatremia (4) Esophageal cancer ICD Code: C15.9 - Malignant neoplasm of esophagus, unspecified Assessment and Plan A/P: 1. SBO: Partial. c/o abdominal pain, nausea/vomiting x1 day, +loose stool x2 days. CT Abd/Pelvis w/ partial SBO, images reviewed by me. NV resolved, no NGT placed, will monitor, insert NGT if symptoms recur. NPO, IVF, IV meds, monitor I/O. Consult Gen Sx for further evaluation, no emergent surgical intervention needed at this time. 2. Ileitis: CT Abd/Pelvis suspicious for terminal ileitis, low-grade temp 99, +bandemia 32%, will start on IV Abx w/ Zosyn. IVF for hydration, monitor I/O. 3. Hyponatremia: Na 126, likely secondary to dehydration, IVF for hydration, repeat labs in am, U/a negative for UTI. 4. Esophageal CA: w/ Mets to Liver/Lung. On Chemo, following w/ Dr. Corona, will consult for further recommendations. 5. DVT Prophylaxis: SCD/Teds. 6. Social work for d/c planning as needed. 7. Case discussed w/ ER physician at length, labs/records/imaging reviewed by me. Physician Certification 2 Midnight Certification Type: Admission for Inpatient Services Order for Inpatient Services The services are ordered in accordance with Medicare regulations or non- Medicare payer requirements, as applicable. In the case of services not specified as inpatient-only, they are appropriately provided as inpatient services in accordance with the 2-midnight benchmark. Estimated LOS (days): 2 days is the estimated time the patient will need to remain in the hospital, assuming treatment plan goals are met and no additional complications. Post-Hospital Plan: Not yet determined Courtney De Los Santos MD Jan 11, 2018 19:32
[2018-01-11] MEDS: ONDANSETRON HCL 4 MG/2 ML VIAL IVP PRN (19:50)
[2018-01-11] MEDS: SODIUM CHLOR 0.9% 1000 ML INJ 1,000 ML IV SCH (19:50)
[2018-01-11] MEDS ORDERED: LORazepam 2 MG/ML VIAL IV PUSH PRN (20:00)
[2018-01-11] MEDS: PIPERACIL-TAZO 4.5 GM PREMIX 100 ML IV SCH (20:13)
[2018-01-11] MEDS ORDERED: DOCUSATE SODIUM 50 MG/SENNA 8.6 MG TAB PO SCH (21:00)
[2018-01-11] MEDS: SODIUM CHLORIDE 0.9% FLUSH 10 ML FLUSH IV FLUSH SCH (21:00)
[2018-01-11 21:09] VITALS: BP 120/62; PULSE 90; RESP 16; O2SAT 100
[2018-01-11 22:00] VITALS: BP 138/68; PULSE 100; RESP 17; TEMP 98.7; O2SAT 96
[2018-01-11] MEDS ORDERED: DOCUSATE SODIUM 50 MG/SENNA 8.6 MG TAB PO PRN (22:00)
[2018-01-11] MEDS: FAMOTIDINE 20 MG/2 ML VIAL IV PUSH SCH (22:08)
[2018-01-11] MEDS: MORPHINE SULFATE 2 MG/ML INJ IV PUSH PRN (22:24)
[2018-01-12] VITALS: BP 112/63; PULSE 93; RESP 17; TEMP 98.5; O2SAT 95
[2018-01-12] MEDS: MORPHINE SULFATE 2 MG/ML INJ IV PUSH PRN ×6 (01:58→19:52)
[2018-01-12] MEDS: PIPERACIL-TAZO 4.5 GM PREMIX 100 ML IV SCH ×4 (01:58→20:00)
[2018-01-12 05:03] LABS: AUTOMATED NEUTROPHIL # 3.2 TH/MM3 (1.8-7.7); BASOPHIL % 0.2 % (0.0-2.0); EOSINOPHIL % 0.7 % (0.0-4.0); HEMATOCRIT 30.9 % (39.0-51.0); HEMOGLOBIN 10.8 GM/DL (13.0-17.0); LYMPH % 3.8 % (9.0-44.0); LYMPHOCYTE # 0.1 TH/MM3 (1.0-4.8); MEAN CELL VOLUME 109.8 FL (80.0-100.0); MEAN CORPUSCULAR HEMOGLOBIN 38.5 PG (27.0-34.0); MEAN CORPUSCULAR HGB CONC 35.1 % (32.0-36.0); MEAN PLATELET VOLUME 6.8 FL (7.0-11.0); MONOCYTE # 0.5 TH/MM3 (0-0.9); NEUT % 81.3 % (16.0-70.0); PLATELET COUNT 209 TH/MM3 (150-450); RED BLOOD COUNT 2.81 MIL/MM3 (4.50-5.90); RED CELL DISTRIBUTION WIDTH 14.4 % (11.6-17.2); WHITE BLOOD COUNT 3.9 TH/MM3 (4.0-11.0)
[2018-01-12] MEDS: ONDANSETRON HCL 4 MG/2 ML VIAL IVP PRN ×3 (05:48→19:48)
[2018-01-12 08:00] VITALS: BP 117/67; PULSE 96; RESP 17; TEMP 97.8; O2SAT 99
[2018-01-12] MEDS: SODIUM CHLOR 0.9% 1000 ML INJ 1,000 ML IV SCH (08:56)
[2018-01-12] MEDS: SODIUM CHLORIDE 0.9% FLUSH 10 ML FLUSH IV FLUSH SCH ×2 (08:58→19:51)
[2018-01-12] MEDS: FAMOTIDINE 20 MG/2 ML VIAL IV PUSH SCH ×2 (08:58→19:49)
--- NOTE | 2018-01-12 09:44 | HHI.PR ---
Subjective Remarks Follow-up bowel obstruction. Patient states that he has had worsening nausea and vomiting since last night. Emesis is bilious. Reports significant abdominal pain as well. No bowel movements, no flatus. Objective Vitals Vital Signs Date Time Temp Pulse Resp B/P (MAP) Pulse Ox O2 Delivery O2 Flow Rate FiO2 01/12/18 08:00 97.8 96 17 117/67 (84) 99 01/12/18 00:00 98.5 93 17 112/63 (79) 95 01/11/18 22:00 98.7 100 17 138/68 (91) 96 01/11/18 21:09 90 16 120/62 (81) 100 01/11/18 15:01 18 01/11/18 12:00 99.3 119 18 129/72 (91) 100 I/O 01/11/18 01/11/18 01/11/18 01/12/18 01/12/18 01/12/18 07:00 15:00 23:00 07:00 15:00 23:00 Intake Total 1100 ml Output Total 625 ml Balance 475 ml Intake IV Total 1100 ml Output Urine Total 500 ml Emesis 125 ml Result Diagram: 01/12/18 0410 01/11/18 1541 Imaging Last Impressions Chest X-Ray 01/11/18 1525 Signed Impressions: Service Date/Time: Thursday, January 11, 2018 15:41 - CONCLUSION: 1. Enlarging right upper lobe mass measuring 3.2 cm. 2. No significant subdiaphragmatic free air. Cuco rIving MD Abdomen/Pelvis CT 01/11/18 1525 Signed Impressions: Service Date/Time: Thursday, January 11, 2018 18:18 - CONCLUSION: 1. There is at least a partial distal small bowel obstruction with diffuse proximal dilatation of small bowel and air-fluid levels. There is mural thickening and luminal narrowing of approximately 10 cm length of terminal ileum suspicious for some form of terminal ileitis. 2. Increase in size of left lung nodule and left hepatic lobe nodule suspicious for metastatic disease. These were noted on prior examinations. Usama Burton MD Objective Remarks General: Thin, chronically ill-appearing male in no acute distress. Heart: Regular rate and rhythm. No murmur. Lungs: Clear to auscultation bilaterally. No wheezes, rales, or rhonchi. Breathing is nonlabored. Abdomen: Soft, diffusely tender to palpation, nondistended. Decreased bowel sounds. Extremities: No lower extremity edema. Psych: Alert and oriented. Procedures None Urinary Catheter: No Vascular Central Line Catheter: No A/P Problem List: (1) SBO (small bowel obstruction) ICD Code: K56.609 - Unspecified intestinal obstruction, unspecified as to partial versus complete obstruction (2) Ileitis ICD Code: K52.9 - Noninfective gastroenteritis and colitis, unspecified (3) Hyponatremia ICD Code: E87.1 - Hypo-osmolality and hyponatremia (4) Esophageal cancer ICD Code: C15.9 - Malignant neoplasm of esophagus, unspecified Assessment and Plan 1. Small bowel obstruction: CT abdomen/pelvis shows partial small bowel obstruction. Nausea and vomiting are worsening. Place NG tube to LIWS. Keep n.p.o. Continue IV fluids, pain control. General surgery consultation pending. 2. Ileitis: CT abdomen/pelvis shows findings suspicious for terminal ileitis. Continue IV antibiotics, IV fluids. 3. Hyponatremia: Likely secondary to dehydration. Continue IV fluids. 4. Esophageal cancer, metastatic to the liver/lung: On chemotherapy, most recent treatment about 2 weeks ago. Oncology consultation is pending. 5. Hypokalemia: Supplement potassium in the IV fluids. 6. GI prophylaxis: Famotidine. 7. DVT prophylaxis: GRECIA Doan. Zaid Obando MD Jan 12, 2018 09:44
--- NOTE | 2018-01-12 10:46 | PD.CONS ---
HPI History of Present Illness This is a 67 year old M with PMH significant for anxiety, metastatic esophageal cancer S/P radiation, last treatment in April and currently undergoing chemotherapy, COPD, and nicotine dependence. Pt minimally answering questions, states his history including recent symptoms should all be in the computer, and he refuses to turn down his television remote making this history hard to obtain. Therefore, most of the history obtained through chart review. Pt presented to the ER yesterday with complaints of diffuse abdominal pain, intermittent, described as cramping. Associated nausea and vomiting. Denies hematemesis and coffee ground emesis. Emesis on table appears to be bile colored. Pt reports his PO intake has been OK prior to admission, has been trying to take Ensure. His oncologist has discussed PEG tube with him but he has not been interested. Also complaining of chronic diarrhea since being started on chemo, took medication to off set the diarrhea but states it caused him to be severely constipated. CT abdomen and pelvis W/O contrast --> There is at least a partial distal SBO with diffuse proximal dilatation of small bowel and air-fluid levels. There is mural thickening and luminal narrowing of approx 10 cm length of terminal ileum suspicious for some form of terminal ileitis. Increase in size of left lung nodule and left hepatic lobe nodule suspicious for metastatic disease. RN was unsuccessful at NG tube placement, due to pts previous sinus surgery. Our service has been consulted to evaluate other possibilities. Pt has been previously seen by our service. EGD (Aug 2017)--> Radiation esophagitis, gastritis antrum, hiatal hernia. Sigmoidoscopy (Aug 2017 ) --> Diverticulosis in the sigmoid and descending colon, multiple ulcers in descending and sigmoid consistent with ischemic colitis (pathology not consistent with this) internal and external hemorrhoids. CTA less than 50% proximal SMA stenosis. High grade distal aortic stenosis and critical proximal left iliac stenosis. Pt reports quitting ETOH a month ago. Current half a pack a day smoker. Also admits to marijuana use. (Yesi Connolly) PFSH Past Medical History PMH: Anxiety, Metastatic Esophageal CA, COPD and Tobacco Abuse Past Surgical History PAST SURGICAL HISTORY: Appendectomy, Tonsillectomy (Yesi Connolly) Coded Allergies: No Known Allergies (Unverified Allergy, Unknown, 01/11/18) Family History PAST FAMILY HISTORY: Reviewed. No h/o DM or CAD Social History PAST SOCIAL HISTORY: Negative for alcohol. Positive for tobacco. + Marijuana. (Yesi Connolly DRAG SEINER) Review of Systems Gastrointestinal: COMPLAINS OF: Abdominal pain, Diarrhea, Nausea, Vomiting, Difficulty Swallowing, Odynophagia, Swelling of Abdomen, DENIES: Black stools, Bloody stools, Constipation, Hematemesis (Yesi Connolly) GI Exam Vitals I&O Vital Signs Date Time Temp Pulse Resp B/P (MAP) Pulse Ox O2 Delivery O2 Flow Rate FiO2 01/12/18 08:00 97.8 96 17 117/67 (84) 99 01/12/18 00:00 98.5 93 17 112/63 (79) 95 01/11/18 22:00 98.7 100 17 138/68 (91) 96 01/11/18 21:09 90 16 120/62 (81) 100 01/11/18 15:01 18 01/11/18 12:00 99.3 119 18 129/72 (91) 100 I/O 01/11/18 01/11/18 01/11/18 01/12/18 01/12/18 01/12/18 07:00 15:00 23:00 07:00 15:00 23:00 Intake Total 1100 ml Output Total 625 ml Balance 475 ml Intake IV Total 1100 ml Output Urine Total 500 ml Emesis 125 ml Imaging Last Impressions Chest X-Ray 01/11/18 1525 Signed Impressions: Service Date/Time: Thursday, January 11, 2018 15:41 - CONCLUSION: 1. Enlarging right upper lobe mass measuring 3.2 cm. 2. No significant subdiaphragmatic free air. Cuco Irving MD Abdomen/Pelvis CT 01/11/18 1525 Signed Impressions: Service Date/Time: Thursday, January 11, 2018 18:18 - CONCLUSION: 1. There is at least a partial distal small bowel obstruction with diffuse proximal dilatation of small bowel and air-fluid levels. There is mural thickening and luminal narrowing of approximately 10 cm length of terminal ileum suspicious for some form of terminal ileitis. 2. Increase in size of left lung nodule and left hepatic lobe nodule suspicious for metastatic disease. These were noted on prior examinations. Usama Burton MD Laboratory Test 01/11/18 15:41 01/11/18 17:11 01/12/18 04:10 01/12/18 04:16 White Blood Count 5.2 TH/MM3 3.9 TH/MM3 Red Blood Count 3.04 MIL/MM3 2.81 MIL/MM3 Hemoglobin 11.6 GM/DL 10.8 GM/DL Hematocrit 33.3 % 30.9 % Mean Corpuscular Volume 109.5 FL 109.8 FL Mean Corpuscular Hemoglobin 38.3 PG 38.5 PG Mean Corpuscular Hemoglobin Concent 35.0 % 35.1 % Red Cell Distribution Width 14.3 % 14.4 % Platelet Count 227 TH/MM3 209 TH/MM3 Mean Platelet Volume 6.7 FL 6.8 FL Neutrophils (%) (Auto) 74.6 % 81.3 % Lymphocytes (%) (Auto) 5.6 % 3.8 % Monocytes (%) (Auto) 19.3 % 14.0 % Eosinophils (%) (Auto) 0.3 % 0.7 % Basophils (%) (Auto) 0.2 % 0.2 % Neutrophils # (Auto) 3.9 TH/MM3 3.2 TH/MM3 Lymphocytes # (Auto) 0.3 TH/MM3 0.1 TH/MM3 Monocytes # (Auto) 1.0 TH/MM3 0.5 TH/MM3 Eosinophils # (Auto) 0.0 TH/MM3 0.0 TH/MM3 Basophils # (Auto) 0.0 TH/MM3 0.0 TH/MM3 CBC Comment AUTO DIFF DIFF FINAL Differential Total Cells Counted 100 Neutrophils % (Manual) 39 % Band Neutrophils % 32 % Lymphocytes % 12 % Monocytes % 15 % Neutrophils # (Manual) 3.8 TH/MM3 Metamyelocytes 2 % Differential Comment FINAL DIFF MANUAL Toxic Granulation 2+ Platelet Estimate NORMAL Platelet Morphology Comment NORMAL Prothrombin Time 11.6 SEC Prothromb Time International Ratio 1.1 RATIO Activated Partial Thromboplast Time 28.7 SEC Blood Urea Nitrogen 16 MG/DL Creatinine 1.15 MG/DL Random Glucose 78 MG/DL Total Protein 6.5 GM/DL Albumin 2.5 GM/DL Calcium Level 8.6 MG/DL Alkaline Phosphatase 53 U/L Aspartate Amino Transf (AST/SGOT) 12 U/L Alanine Aminotransferase (ALT/SGPT) 16 U/L Total Bilirubin 0.6 MG/DL Sodium Level 126 MEQ/L Potassium Level 3.4 MEQ/L Chloride Level 88 MEQ/L Carbon Dioxide Level 25.6 MEQ/L Anion Gap 12 MEQ/L Estimat Glomerular Filtration Rate 64 ML/MIN Total Creatine Kinase 30 U/L 66 U/L Lipase 50 U/L Urine Color DARK-BROWN Urine Turbidity HAZY Urine pH 5.5 Urine Specific [place] 1.028 Urine Protein 30 mg/dL Urine Glucose (UA) NEG mg/dL Urine Ketones 10 mg/dL Urine Occult Blood NEG Urine Nitrite NEG Urine Bilirubin NEG Urine Urobilinogen 4.0 MG/DL Urine Leukocyte Esterase TRACE Urine WBC 7 /hpf Urine Hyaline Casts INNUM /lpf Urine Mucus MANY /lpf Microscopic Urinalysis Comment CULT NOT INDICATED Physical Examination HEENT: Normocephalic; atraumatic CHEST: Even/unlabored CARDIAC: RRR ABDOMEN: Distended, diffuse TTP; bowel sounds active EXTREMITIES: No clubbing, cyanosis, or edema. SKIN: Normal; no rash; no jaundice. AUDIO OPERATOR: No focal deficits; alert and oriented times three. (Yesi Connolly) Assessment and Plan Plan Assessment: - SBO- CT abdomen and pelvis W/O contrast --> There is at least a partial distal SBO with diffuse proximal dilatation of small bowel and air-fluid levels. There is mural thickening and luminal narrowing of approx 10 cm length of terminal ileum suspicious for some form of terminal ileitis. RN was unsuccessful at NG tube placement, due to pts previous sinus surgery. Our service has been consulted to evaluate other possibilities. Per Dr. Obando with no plans for surgery. Previous SBO in September, resolved with medical management. - Diarrhea- Pt reports chronic since being started on chemotherapy- previously on medication to help with this, however states caused severe constipation - Dysphagia and odynophagia- since radiation, last tx in April- oncologist has discussed possibility of PEG with pt, states not interested. Tries to take Ensure at home - Anemia, Macrocytic - Electrolyte imbalance- hyponatremia, hypochloremia, hypokalemia Previous MACDONALD: EGD (Aug 2017)--> Radiation esophagitis, gastritis antrum, hiatal hernia. Sigmoidoscopy (Aug 2017) --> Diverticulosis in the sigmoid and descending colon, multiple ulcers in descending and sigmoid consistent with ischemic colitis (pathology not consistent with this ) internal and external hemorrhoids. CTA less than 50% proximal SMA stenosis. High grade distal aortic stenosis and critical proximal left iliac stenosis. Plan: Keep NPO IVF IR consult for NGT if able if not Dobhoff placement If unsuccessful can consider EGD for placement Higher risk for aspiration during EGD with SBO Monitor labs, electrolytes Zosyn Zofran PRN nausea Stool studies Further recommendations based on clinical course Pt has been seen and examined by myself and Dr. Doss and this note is written on her behalf (Yesi Connolly) Physician Comments seen, examined agree with above states he had an enema and afterwards had large amount of stool and gas-we will repeat history of ischemic colitis , abnormal cta last admission-was evaluated by vascular surgery-no intervention recommended , patient was suppose to fu op sed rate iv antibiotics solumedrol 40 mg iv bid stool studies consider repeat cta based on the results will need egd/colonoscopy -possible Sunday (Rosa Doss MD) Yesi Connolly Jan 12, 2018 10:46 Rosa Doss MD Jan 12, 2018 18:07
[2018-01-12] MEDS: NS + KCL 20 MEQ INJ 1,000 ML IV SCH (10:50)
[2018-01-12 12:00] VITALS: BP 112/65; PULSE 91; RESP 17; TEMP 98; O2SAT 97
--- NOTE | 2018-01-12 12:03 | PD.CONS ---
HPI Service General surgery Consult Requested By Dr. SNYDER Reason for Consult Small bowel obstruction Primary Care Physician Amilcar Baeza MD History of Present Illness Patient is a pleasant 67-year-old gentleman unfortunately with a diagnosis of metastatic esophageal cancer. He apparently has been treated in the past with radiation therapy and is presently undergoing chemotherapy under the direction of Dr. Corona. He was experiencing significant diarrheal symptoms and was treated with a intravenous medication according to the patient and the pendulum has swung in the opposite direction and now he is not passing flatus or having bowel movements. He experienced progressive abdominal distention with nausea and vomiting. He underwent a CT scan which demonstrates diffuse dilatation of the small bowel with distal ileal inflammation and some luminal narrowing consistent with terminal ileitis. The patient does have a remote history of appendectomy as an 10-year-old and has never had a small bowel obstruction in the past. The findings on CT scan are not consistent with small bowel obstruction from adhesions. Apparently attempted placement of a nasogastric tube was unsuccessful by bedside RN. The patient has been seen by GI. Review of Systems Constitutional: COMPLAINS OF: Fatigue, Weight loss, Change in appetite Respiratory: COMPLAINS OF: Shortness of breath Gastrointestinal: COMPLAINS OF: Abdominal pain, Constipation, Diarrhea, Nausea , Vomiting, Anorexia Psychiatric: COMPLAINS OF: Anxiety Past Family Social History Past Medical History Metastatic esophageal cancer COPD acid reflux disease Past Surgical History Appendectomy tonsillectomy Reported Medications Pain medications antacid medications and medications for her diarrhea prescribed by Dr. Corona Allergies: Coded Allergies: No Known Allergies (Unverified Allergy, Unknown, 01/11/18) Active Ordered Medications Current Medications Medications (Trade) Dose Ordered Sig/Dana Route Start Time Stop Time Status Last Admin Piperacillin Sod/ Tazobactam Sod 100 ml @ 200 mls/hr Q6H IV 01/11/18 20:00 01/12/18 08:56 (NS Flush) 2 ml UNSCH PRN IV FLUSH 01/11/18 19:30 (NS Flush) 2 ml BID IV FLUSH 01/11/18 21:00 (Zofran Inj) 4 mg Q6H PRN IVP 01/11/18 19:30 01/12/18 05:48 (Morphine Inj) 1 mg Q3H PRN IV PUSH 01/11/18 19:30 (Morphine Inj) 2 mg Q3H PRN IV PUSH 01/11/18 19:30 01/12/18 09:07 (Milk Of Magnesia Liq) 30 ml Q12H PRN PO 01/11/18 19:30 (Senokot) 17.2 mg Q12H PRN PO 01/11/18 19:30 (Dulcolax Supp) 10 mg DAILY PRN RECTAL 01/11/18 19:30 (Lactulose Liq) 30 ml DAILY PRN PO 01/11/18 19:30 (Ativan Inj) 1 mg Q3H PRN IV PUSH 01/11/18 20:00 (Pepcid Inj) 20 mg Q12H IV PUSH 01/11/18 21:00 01/12/18 08:58 (Rosenda-Colace) 1 tab BID PRN PO 01/11/18 22:00 Potassium Chloride/Sodium Chloride 1,000 ml @ 100 mls/hr Q10H IV 01/12/18 09:45 01/12/18 10:50 Family History Pancreatic cancer Social History Previous smoker quit taking alcohol about a month ago. Reported history of marijuana use. Physical Exam Vital Signs Vital Signs Date Time Temp Pulse Resp B/P (MAP) Pulse Ox O2 Delivery O2 Flow Rate FiO2 01/12/18 08:00 97.8 96 17 117/67 (84) 99 01/12/18 00:00 98.5 93 17 112/63 (79) 95 01/11/18 22:00 98.7 100 17 138/68 (91) 96 01/11/18 21:09 90 16 120/62 (81) 100 01/11/18 15:01 18 01/11/18 12:00 99.3 119 18 129/72 (91) 100 Physical Exam He is a somewhat disheveled thin mildly cachectic male who is in no acute distress although he has intermittent episodes of nausea and feels like he may need to throw up. HEENT is normocephalic he has some mild alopecia consistent with history of chemotherapy. His pupils are 3-4 mm round and sluggishly reactive to light. His sclera are anicteric. His oropharynx is clear he has some mild thrush. He has poor dentition with multiple missing teeth. His neck is thin there is no palpable cervical or supraclavicular lymphadenopathy. His trachea is midline. There is no jugular venous distention or carotid bruits. There is no palpable enlargement of the thyroid gland. His lung sounds are clear and equal anteriorly bilaterally. He does have findings consistent with COPD. His heart sounds appear normal without obvious murmur rub or gallop. His abdomen is diffusely distended mildly tender to palpation and percussion. He has few normal bowel sounds there are no high- pitched tinkling noises. He has a well-healed right lower quadrant obliquely oriented incision consistent with appendectomy many years ago. There are no obvious hernias. External genitalia appears normal. Rectal examination was not repeated although he admits he has a history of hemorrhoids. His extremities are thin he has equal radial and dorsalis pedis pulses. There is no evidence of cyanosis clubbing or edema. 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 and no gross motor or sensory deficits Laboratory Laboratory Tests Test 01/11/18 15:41 01/11/18 17:11 01/12/18 04:10 01/12/18 04:16 White Blood Count 5.2 3.9 Red Blood Count 3.04 2.81 Hemoglobin 11.6 10.8 Hematocrit 33.3 30.9 Mean Corpuscular Volume 109.5 109.8 Mean Corpuscular Hemoglobin 38.3 38.5 Mean Corpuscular Hemoglobin Concent 35.0 35.1 Red Cell Distribution Width 14.3 14.4 Platelet Count 227 209 Mean Platelet Volume 6.7 6.8 Neutrophils (%) (Auto) 74.6 81.3 Lymphocytes (%) (Auto) 5.6 3.8 Monocytes (%) (Auto) 19.3 14.0 Eosinophils (%) (Auto) 0.3 0.7 Basophils (%) (Auto) 0.2 0.2 Neutrophils # (Auto) 3.9 3.2 Lymphocytes # (Auto) 0.3 0.1 Monocytes # (Auto) 1.0 0.5 Eosinophils # (Auto) 0.0 0.0 Basophils # (Auto) 0.0 0.0 CBC Comment AUTO DIFF DIFF FINAL Differential Total Cells Counted 100 Neutrophils % (Manual) 39 Band Neutrophils % 32 Lymphocytes % 12 Monocytes % 15 Neutrophils # (Manual) 3.8 Metamyelocytes 2 Differential Comment FINAL DIFF MANUAL Toxic Granulation 2+ Platelet Estimate NORMAL Platelet Morphology Comment NORMAL Prothrombin Time 11.6 Prothromb Time International Ratio 1.1 Activated Partial Thromboplast Time 28.7 Blood Urea Nitrogen 16 Creatinine 1.15 Random Glucose 78 Total Protein 6.5 Albumin 2.5 Calcium Level 8.6 Alkaline Phosphatase 53 Aspartate Amino Transf (AST/SGOT) 12 Alanine Aminotransferase (ALT/SGPT) 16 Total Bilirubin 0.6 Sodium Level 126 Potassium Level 3.4 Chloride Level 88 Carbon Dioxide Level 25.6 Anion Gap 12 Estimat Glomerular Filtration Rate 64 Total Creatine Kinase 30 66 Lipase 50 Urine Color DARK-BROWN Urine Turbidity HAZY Urine pH 5.5 Urine Specific [place] 1.028 Urine Protein 30 Urine Glucose (UA) NEG Urine Ketones 10 Urine Occult Blood NEG Urine Nitrite NEG Urine Bilirubin NEG Urine Urobilinogen 4.0 Urine Leukocyte Esterase TRACE Urine WBC 7 Urine Hyaline Casts INNUM Urine Mucus MANY Microscopic Urinalysis Comment CULT NOT INDICATED Result Diagram: 01/12/18 0410 01/11/[address] scan shows diffuse dilatation of the small bowel with terminal ileal inflammatory changes with narrowing of the lumen consistent with terminal ileitis. I do not see findings classically consistent with adhesional obstruction of the bowel. Assessment and Plan Assessment and Plan Unfortunate 67-year-old gentleman with history of metastatic esophageal cancer who has been treated with radiation therapy as well as chemotherapy. He was having diarrhea and was treated by Dr. Corona for the diarrhea and now has constipation. CT findings are suggestive of terminal ileitis. These findings are not consistent with adhesional obstruction of the small bowel. The patient additionally has some mild electrolyte abnormalities which would contribute to abnormal bowel function. He is a less than ideal candidate for surgical treatment at this time and I would recommend against it. My recommendations would be continued hydration correction of electrolyte abnormalities consideration for antibiotic therapy for bowel bacteria in reference to the terminal ileitis. We will follow along with this patient. Incidental prior workup of upper endoscopy and colonoscopy is noted from the GI consultants note. Lionel Hoff MD Jan 12, 2018 12:03
[2018-01-12] MEDS ORDERED: SOD PHOSPHATE/SOD BIPHOSPHATE (ADULT) ENEMA 133ML RECTAL ONE ×3 (12:15→20:00)
--- NOTE | 2018-01-12 13:10 | MB ---
cc: Dot García MD DATE: 01/12/2018 CHIEF COMPLAINT: 1. Small-bowel obstruction. 2. Metastatic esophageal cancer. HISTORY OF PRESENT ILLNESS: Mr. Paul is a 67-year-old gentleman with a history of metastatic esophageal cancer. He is currently under the treatment of my colleague, Dr. Corona. He initially established care with Dr. Corona in clinic in 03/2017 for a 6 month history of progressively worsening dysphagia, chest pain, and unintentional weight loss. He was found to have suspicious bilateral lung nodules as well as an esophageal mass. He was treated with carboplatin and paclitaxel with concurrent radiation therapy to improve symptoms. 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 He has also been treated in the past with ramucirumab which caused ischemic colitis, docetaxel, and irinotecan. He was most recently started on irinotecan on 12/18/2017. He reports that this medication was complicated by diarrhea. He reports that he was given medications to help with the diarrhea. He was admitted to the Hospital on 01/11/2018 with constipation of 2 days' duration. He also reported nausea and vomiting. Imaging study showed left lower lobe peripheral pulmonary nodule increased in size and now measures about 12 mm in diameter compared with 4 mm. Left lobe of the liver measures 17 mm in diameter, which is larger than on previous exam in September. Also found was a partial distal small-bowel obstruction with diffuse proximal dilation of the small bowel and air fluid levels. There is mural thickening and luminal narrowing of approximately 10 cm length of the terminal ileum, suspicious for some form of terminal ileitis. Chest x-ray with enlarging right upper lobe mass measuring 3.2 cm. He was admitted to the medical service and has been consulted on by the gastroenterology service an surgery services. He is currently n.p.o. He has IV fluids running. Dobbhoff placement attempted; however, was unsuccessful due to esophageal stricture. Further consideration for IR placement for NG tube versus Dobbhoff placement. The patient reports abdominal pain and constipation. PAST MEDICAL HISTORY: 1. Metastatic esophageal squamous cell carcinoma. 2. Chronic obstructive pulmonary disease. 3. History of tobacco abuse. 4. History of alcohol abuse. 5. Macrocytosis. 6. Hypertension. 7. Rheumatoid arthritis. PAST SURGICAL HISTORY: 1. Tonsillectomy. 2. Appendectomy. 3. Orthopedic surgery on the ankle. 4. Cyst removed from nasal cavity. FAMILY HISTORY: Coronary artery disease, Alzheimer's disease and pancreatic cancer. SOCIAL HISTORY: He is . He has recently quit smoking with a greater than 40-year history of tobacco abuse. He has a previous history of heavy alcohol abuse; however, he reports that he has stopped in the past month. ALLERGIES: NO KNOWN DRUG ALLERGIES. CURRENT HOSPITAL MEDICATIONS: Include famotidine, Lorazepam, morphine, Zofran, Zosyn and Senna. REVIEW OF SYSTEMS: As above in the HPI. LABORATORY STUDIES: White blood cell count 3.9; hemoglobin 10.8; platelet count is 209,000 with a normal differential. Sodium 126, potassium 3.4, creatinine 1.15 with an estimated GFR of 64. Total bilirubin is 0.6, AST 12, ALT 16, total protein 6.5 and albumin is 2.5. PHYSICAL EXAMINATION: VITAL SIGNS: Temperature 97.8, pulse 96, respiratory rate 17, blood pressure 117/67, pulse oximetry 99% on room air. GENERAL: Thin, chronically ill-appearing man, in mild distress due to abdominal pain. HEENT: With clear oropharynx. NECK: Supple with no palpable lymphadenopathy. CARDIOVASCULAR: Regular rate and rhythm with no murmurs. RESPIRATORY: Clear to auscultation bilaterally. ABDOMEN: Tenderness to palpation. EXTREMITIES: No edema. NEUROLOGIC: Grossly nonfocal. PSYCHIATRIC: Appropriate mood and affect. SKIN: With no rashes. ASSESSMENT AND PLAN: 1. 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 His last dose of this medicine was given on 01/08/2018. Oncology service will continue to follow inpatient. 2. Small bowel obstruction. Gastroenterology and Surgery services are currently following. Interventional Radiology service has been consulted for placement of Dobbhoff tube. No need for current surgical intervention. 3. Cytopenias with leukopenia and anemia. Chemotherapy with irinotecan is certainly contributing to these. He does have a longstanding history of macrocytosis, which is consistent with his past history of alcohol abuse. Prior vitamin B12 and folate levels have been within normal limits. Dot N. García, MD LEO/JL , 12:09 PM , 01:09 PM JORGE
[2018-01-12 14:34] VITALS: BP 112/64; PULSE 97; RESP 18; TEMP 98.1; O2SAT 99
[2018-01-12] MEDS ORDERED: metroNIDAZOLE 500 MG INJ 100 ML IV SCH (18:00)
[2018-01-12 19:42] VITALS: BP 128/70; PULSE 98; RESP 18; TEMP 98.7; O2SAT 97
[2018-01-12] MEDS: methylPREDNISolone SOD SUCC 40 MG/1 ML VIAL IV PUSH SCH (19:48)
[2018-01-12 20:16] VITALS: PULSE 94
[2018-01-12] MEDS: metroNIDAZOLE 500 MG INJ 100 ML IV SCH (21:48)
[2018-01-13] VITALS (16 sets, daily range): BP systolic 111–136; BP diastolic 63–81; PULSE 72–98; RESP 16–20; TEMP 97.4–98; O2SAT 96–100
[2018-01-13] MEDS: MORPHINE SULFATE 2 MG/ML INJ IV PUSH PRN ×4 (00:18→21:26)
[2018-01-13] MEDS: NS + KCL 20 MEQ INJ 1,000 ML IV SCH ×3 (00:20→19:50)
[2018-01-13] MEDS: PIPERACIL-TAZO 4.5 GM PREMIX 100 ML IV SCH ×4 (02:41→19:48)
[2018-01-13] MEDS: ONDANSETRON HCL 4 MG/2 ML VIAL IVP PRN ×2 (02:43→21:26)
[2018-01-13] MEDS: metroNIDAZOLE 500 MG INJ 100 ML IV SCH ×3 (04:27→21:27)
[2018-01-13 06:03] LABS: AUTOMATED NEUTROPHIL # 4.8 TH/MM3 (1.8-7.7); BASOPHIL % 0.1 % (0.0-2.0); EOSINOPHIL % 0.1 % (0.0-4.0); HEMATOCRIT 30.5 % (39.0-51.0); HEMOGLOBIN 10.5 GM/DL (13.0-17.0); LYMPH % 2.5 % (9.0-44.0); LYMPHOCYTE # 0.1 TH/MM3 (1.0-4.8); MEAN CELL VOLUME 110.6 FL (80.0-100.0); MEAN CORPUSCULAR HEMOGLOBIN 38.1 PG (27.0-34.0); MEAN CORPUSCULAR HGB CONC 34.4 % (32.0-36.0); MONOCYTE # 0.6 TH/MM3 (0-0.9); NEUT % 86.3 % (16.0-70.0); PLATELET COUNT 235 TH/MM3 (150-450); RED BLOOD COUNT 2.76 MIL/MM3 (4.50-5.90); RED CELL DISTRIBUTION WIDTH 14.5 % (11.6-17.2); WHITE BLOOD COUNT 5.6 TH/MM3 (4.0-11.0)
[2018-01-13 07:15] LABS: BICARBONATE 20.3 MEQ/L (21.0-32.0); CALCIUM 8.3 MG/DL (8.5-10.1); CREATININE 0.55 MG/DL (0.60-1.30); MAGNESIUM 2.1 MG/DL (1.5-2.5)
--- NOTE | 2018-01-13 09:51 | RADRPT ---
EXAM DATE/TIME: 01/13/2018 10:22 [facility] COMPARISON: CT ABDOMEN & PELVIS W CONTRAST, January 11, 2018, 18:18. CHEST SINGLE AP, January 11, 2018, 15:41. INDICATIONS : Vomiting MEDICAL HISTORY : Chronic obstructive pulmonary disease. Carcinoma, lung. Carcinoma, hepatocellular. SURGICAL HISTORY : Appendectomy. ENCOUNTER: Initial ACUITY: 3 days PAIN SCORE: 6/10 LOCATION: Abdomen FINDINGS: Air-filled mildly dilated loops of small bowel are noted suggesting possible small bowel obstruction. There is elevation of the right hemidiaphragm. Mild degenerative changes and scoliosis of the thorac olumbar spine are noted. Right lung mass is noted. CONCLUSION: Air-filled mildly dilated loops of small bowel suggesting possible small bowel obstruction. Stable ri ght lung mass. Mild degenerative changes and scoliosis of the thoracolumbar spine. Elevation of the r ight hemidiaphragm. Sam Aranda MD on January 13, 2018 at 9:46 Board Certified Radiologist. This report was verified electronically.
--- NOTE | 2018-01-13 10:35 | PD.ONC.PN ---
Subjective Subjective Remarks Afebrile overnight Patient is confused this morning; he is talking about his room being ransacked when he was brought in earlier Per RN, he has been confused since being given an injection of Ativan around 430 this morning He has been having multiple bowel movements since fleets enema Objective Data Date Time Temp Pulse Resp B/P (MAP) Pulse Ox O2 Delivery O2 Flow Rate FiO2 01/13/18 08:21 97.8 91 16 111/63 (79) 98 01/13/18 04:24 97.4 93 18 117/68 (84) 96 01/13/18 04:01 85 01/13/18 00:15 98.0 85 18 128/72 (90) 97 01/13/18 00:03 85 01/12/18 20:16 94 01/12/18 19:42 98.7 98 18 128/70 (89) 97 01/12/18 14:34 98.1 97 18 112/64 (80) 99 01/12/18 12:00 98.0 91 17 112/65 (81) 97 01/13/18 01/13/18 01/13/18 07:00 15:00 23:00 Intake Total 1200 ml Output Total 700 ml Balance 500 ml Result Diagram: 01/13/18 0418 01/13/18 0418 Laboratory Results Laboratory Tests Test 01/12/18 21:17 01/13/18 04:18 Erythrocyte Sedimentation Rate 53 mm/hr White Blood Count 5.6 TH/MM3 Red Blood Count 2.76 MIL/MM3 Hemoglobin 10.5 GM/DL Hematocrit 30.5 % Mean Corpuscular Volume 110.6 FL Mean Corpuscular Hemoglobin 38.1 PG Mean Corpuscular Hemoglobin Concent 34.4 % Red Cell Distribution Width 14.5 % Platelet Count 235 TH/MM3 Mean Platelet Volume 7.0 FL Neutrophils (%) (Auto) 86.3 % Lymphocytes (%) (Auto) 2.5 % Monocytes (%) (Auto) 11.0 % Eosinophils (%) (Auto) 0.1 % Basophils (%) (Auto) 0.1 % Neutrophils # (Auto) 4.8 TH/MM3 Lymphocytes # (Auto) 0.1 TH/MM3 Monocytes # (Auto) 0.6 TH/MM3 Eosinophils # (Auto) 0.0 TH/MM3 Basophils # (Auto) 0.0 TH/MM3 CBC Comment DIFF FINAL Differential Comment Blood Urea Nitrogen 12 MG/DL Creatinine 0.55 MG/DL Random Glucose 96 MG/DL Calcium Level 8.3 MG/DL Magnesium Level 2.1 MG/DL Sodium Level 137 MEQ/L Potassium Level 3.1 MEQ/L Chloride Level 101 MEQ/L Carbon Dioxide Level 20.3 MEQ/L Anion Gap 16 MEQ/L Estimat Glomerular Filtration Rate 149 ML/MIN Culture Results Microbiology Date/Time Source Procedure Growth Status 01/12/18 22:29 Stool Stool Cryptosporidium Exam Pending Received 01/12/18 22:29 Stool Stool Giardia Antigen (MEAGAN) Pending Received 01/12/18 22:29 Stool Stool Pending Received Administered Medications Medications (Trade) Dose Ordered Sig/Dana Route PRN Reason Start Time Stop Time Status Last Admin Dose Admin Piperacillin Sod/ Tazobactam Sod 100 ml @ 200 mls/hr Q6H IV 01/11/18 20:00 01/13/18 02:41 Ondansetron HCl (Zofran Inj) 4 mg Q6H PRN IVP NAUSEA OR VOMITING 01/11/18 19:30 01/13/18 02:43 Morphine Sulfate (Morphine Inj) 2 mg Q3H PRN IV PUSH Pain 6-10 01/11/18 19:30 01/13/18 02:42 Lorazepam (Ativan Inj) 1 mg Q3H PRN IV PUSH ANXIETY/NAUSEA/VOMITING 01/11/18 20:00 01/13/18 04:27 Famotidine (Pepcid Inj) 20 mg Q12H IV PUSH 01/11/18 21:00 01/12/18 19:49 Potassium Chloride/Sodium Chloride 1,000 ml @ 100 mls/hr Q10H IV 01/12/18 09:45 01/13/18 00:20 Methylprednisolone Sodium Succinate (SoluMEDROL INJ) 40 mg Q12HR IV PUSH 01/12/18 21:00 01/12/18 19:48 Metronidazole 100 ml @ 100 mls/hr Q8H IV 01/12/18 20:00 01/13/18 04:27 Objective Remarks GENERAL: Disheveled older male resting in stretcher ready to go for KUB SKIN: Warm and dry. HEAD: Normocephalic. EYES: No injection or drainage. NECK: Supple, trachea midline. CARDIOVASCULAR: Regular rate and rhythm without murmurs. RESPIRATORY: Breath sounds diminished anteriorly. Breathing unlabored at rest. GASTROINTESTINAL: Abdomen soft, non-tender, nondistended. EXTREMITIES: No cyanosis, or edema. MUSCULOSKELETAL: Adequate muscle tone. NEUROLOGICAL: Confused. Normal speech. Follows commands. Assessment/Plan Problem List: (1) SBO (small bowel obstruction) ICD Codes: K56.609 - Unspecified intestinal obstruction, unspecified as to partial versus complete obstruction Plan: --Abdominal CTA shows at least a partial distal small bowel obstruction with diffuse proximal dilatation of small bowel and air-fluid levels. There is mural thickening and luminal narrowing of approximately 10 cm length of terminal ileum suspicious for some form of terminal ileitis. --General surgery following --IR to Place Dobbhoff tube on Sunday (2) Esophageal cancer ICD Codes: C15.9 - Malignant neoplasm of esophagus, unspecified Plan: -- Patient was originally diagnosed in March 2017 with esophageal cancer with metastatic disease to the lungs. He has progressed on multiple lines of therapy. Most recently he has been on single agent irinotecan with the last dose given on 01/08/18. -- CT scan on 01/12/18 showed increase in size of the left lung nodule and the left hepatic lobe. Assessment 67-year-old male with metastatic esophageal cancer admitted for small bowel obstruction Plan 1. Hold Ativan as patient had adverse reaction with severe confusion 2. Monitor CBC 3. Chemo on hold until resolution of small bowel obstruction Attending Statement The exam, history, and the medical decision-making described in the above note were completed with the assistance of the mid-level provider. I reviewed and agree with the findings presented. I attest that I had a [id number] encounter with the patient on the same day, and personally performed and documented my assessment and findings in the medical record. 67 yoM with metastatic esophageal cancer progressed on multiple prior lines of therapy. Admitted with small bowel obstruction. Plan for placement of NG/dobhoff tomorrow. Lizeth Da Silva Jan 13, 2018 10:35 Dot García MD Jan 13, 2018 18:59
[2018-01-13] MEDS: FAMOTIDINE 20 MG/2 ML VIAL IV PUSH SCH ×2 (10:50→19:49)
[2018-01-13] MEDS: methylPREDNISolone SOD SUCC 40 MG/1 ML VIAL IV PUSH SCH ×2 (10:51→19:49)
[2018-01-13] MEDS: SODIUM CHLORIDE 0.9% FLUSH 10 ML FLUSH IV FLUSH SCH ×2 (10:54→19:49)
--- NOTE | 2018-01-13 11:57 | HHI.PR ---
Subjective Subjective Notes feels better today, no N/V, less pain Objective Vitals/I&O Vital Signs Date Time Temp Pulse Resp B/P (MAP) Pulse Ox O2 Delivery O2 Flow Rate FiO2 01/13/18 08:21 97.8 91 16 111/63 (79) 98 Labs Laboratory Tests Test 01/12/18 21:17 01/13/18 04:18 Erythrocyte Sedimentation Rate 53 White Blood Count 5.6 Red Blood Count 2.76 Hemoglobin 10.5 Hematocrit 30.5 Mean Corpuscular Volume 110.6 Mean Corpuscular Hemoglobin 38.1 Mean Corpuscular Hemoglobin Concent 34.4 Red Cell Distribution Width 14.5 Platelet Count 235 Mean Platelet Volume 7.0 Neutrophils (%) (Auto) 86.3 Lymphocytes (%) (Auto) 2.5 Monocytes (%) (Auto) 11.0 Eosinophils (%) (Auto) 0.1 Basophils (%) (Auto) 0.1 Neutrophils # (Auto) 4.8 Lymphocytes # (Auto) 0.1 Monocytes # (Auto) 0.6 Eosinophils # (Auto) 0.0 Basophils # (Auto) 0.0 CBC Comment DIFF FINAL Differential Comment Blood Urea Nitrogen 12 Creatinine 0.55 Random Glucose 96 Calcium Level 8.3 Magnesium Level 2.1 Sodium Level 137 Potassium Level 3.1 Chloride Level 101 Carbon Dioxide Level 20.3 Anion Gap 16 Estimat Glomerular Filtration Rate 149 Date/Time Source Procedure Growth Status 01/12/18 22:29 Stool Stool Cryptosporidium Exam Pending Received 01/12/18 22:29 Stool Stool Giardia Antigen (MEAGAN) Pending Received Radiology CT scan shows diffuse dilatation of the small bowel with terminal ileal inflammatory changes with narrowing of the lumen consistent with terminal ileitis. I do not see findings classically consistent with adhesional obstruction of the bowel. Abdomen: Non-distended, BS normal Narrative Exam no tenderness on exam, few BS A/P Assessment and Plan SBO secondary to terminal ileitis agree with dr davalos, see his consult medical management not really a surgical candidate will DC full SBFT and only get limited films, patient already drank 2 cups of contrast - CT shows the terminal ileitis. Brian Cunningham MD Jan 13, 2018 11:57
[2018-01-13] MEDS: POTASSIUM CHLOR 20 MEQ PREMIX 100 ML IV SCH ×2 (12:17→14:18)
[2018-01-13] MEDS ORDERED: DIATRIZOATE MEGLUM/DIATRIZOATE SOD 120 ML BTL (for RAD DIAG) PO ONE (12:35)
--- NOTE | 2018-01-13 13:37 | HHI.PR ---
Subjective Remarks IR unable to put in Dobbhoff tube per patient. He reports he is feeling okay. States he gets some relief from enema. Persistent hiccups. Denies significant abdominal pain currently. Objective Vitals Vital Signs Date Time Temp Pulse Resp B/P (MAP) Pulse Ox O2 Delivery O2 Flow Rate FiO2 01/13/18 13:10 97.9 98 18 121/73 (89) 98 01/13/18 08:21 97.8 91 16 111/63 (79) 98 01/13/18 04:24 97.4 93 18 117/68 (84) 96 01/13/18 04:01 85 01/13/18 00:15 98.0 85 18 128/72 (90) 97 01/13/18 00:03 85 01/12/18 20:16 94 01/12/18 19:42 98.7 98 18 128/70 (89) 97 01/12/18 14:34 98.1 97 18 112/64 (80) 99 I/O 01/12/18 01/12/18 01/12/18 01/13/18 01/13/18 01/13/18 07:00 15:00 23:00 07:00 15:00 23:00 Intake Total 1100 ml 100 ml 1200 ml Output Total 625 ml 700 ml Balance 475 ml 100 ml 500 ml Intake Oral 0 ml IV Total 1100 ml 100 ml 1200 ml Output Urine Total 500 ml Stool Total 700 ml Emesis 125 ml # Voids 2 3 # Bowel Movements 3 Result Diagram: 01/13/18 0418 01/13/18 0418 Objective Remarks GENERAL: Chronically ill appearing male CARDIOVASCULAR: Normal rate and regular rhythm without murmurs, gallops, or rubs. RESPIRATORY: Good respiratory efforts. Breath sounds equal and clear to auscultation bilaterally. GASTROINTESTINAL: Abdomen soft, non-tender, non-distended. Hypoactive bowel sounds. MUSCULOSKELETAL: Extremities without cyanosis, or edema. NEURO: Alert & Oriented x4 to person, place, time, situation. Moves all ext x4 PSYCH: Calm Procedures None A/P Problem List: (1) SBO (small bowel obstruction) ICD Code: K56.609 - Unspecified intestinal obstruction, unspecified as to partial versus complete obstruction Plan: Secondary to terminal ileitis. Appreciate general surgery input. Recommends medical management. Keep n.p.o. Supportive care with IV fluid, pain control. Enema, stool softeners as needed. GI following and planning for endoscopy. (2) Ileitis ICD Code: K52.9 - Noninfective gastroenteritis and colitis, unspecified Plan: Appreciate GI following. Continue antibiotics and Solu-Medrol. - GI planning for endoscopy. Follow progress. (3) Esophageal cancer ICD Code: C15.9 - Malignant neoplasm of esophagus, unspecified Plan: Appreciate oncology following. Recent treatment with chemotherapy. Need feeding tube placement. GI following and planning for endoscopy tomorrow. Supportive care as above. (4) Hyponatremia ICD Code: E87.1 - Hypo-osmolality and hyponatremia Plan: Resolved Assessment and Plan GI prophylaxis: Famotidine. DVT prophylaxis: GRECIA Doan. Renetta Bhatia MD Jan 13, 2018 13:37
--- NOTE | 2018-01-13 22:27 | HHI.GIFU ---
GI Follow-up Note Consult Follow-up Subjective: Patient laying in bed comfortably, sleepy. Awaiting SBFT.Had some bowel movements after enema .Surgery on the case.Unable to place ngt due to sinus surgery, IR was consulted for Dobbhoff tube placement . Objective: PHYSICAL EXAMINATION: Vitals signs stable No fever HEENT: Pupils round and reactive to light; normocephalic; atraumatic; no jaundice. Throat is clear. NECK: Neck is supple, no JVD, no lymphadenopathy. CHEST: Chest is clear to auscultation and percussion. CARDIAC: Regular rate and rhythm with no murmur gallop or rubs. ABDOMEN: Soft, distended, tender in rlq ; no hepatosplenomegaly; bowel sounds are present in all four quadrants. EXTREMITIES: No clubbing, cyanosis, or edema. SKIN: Normal; no rash; no jaundice. PRIMARY CLINICIAN: No focal deficits; alert and oriented times three. Available Data (labs, X- Rays, Procedues) : ASSESSMENT/PLAN: SBO secondary terminal ileitis-unclear etiology -npo history of colitis, most likely ischemic-he had an abnormal cta last year-was evaluated by vascular surgery , op fu was recommended history of esophageal ca unable to pass ngt due to sinus surgery Recommendations npo fu sbft iv antibiotics, steroids fu stool studies surgical fu egd/ colon when improved clinically IR to palce doubhoff tube It was a pleasure seeing [place]. Thank you for this consult. Entered by: Rosa Richards MD Jan 13, 2018 22:27
[2018-01-14] VITALS (14 sets, daily range): BP systolic 127–139; BP diastolic 73–87; PULSE 68–104; RESP 16–18; TEMP 97–97.9; O2SAT 98–100
[2018-01-14] MEDS: MORPHINE SULFATE 2 MG/ML INJ IV PUSH PRN ×7 (00:45→22:21)
[2018-01-14] MEDS: PIPERACIL-TAZO 4.5 GM PREMIX 100 ML IV SCH ×4 (02:58→20:35)
[2018-01-14] MEDS: metroNIDAZOLE 500 MG INJ 100 ML IV SCH ×3 (04:33→21:22)
[2018-01-14 05:30] LABS: BICARBONATE 22.1 MEQ/L (21.0-32.0); CALCIUM 8.2 MG/DL (8.5-10.1); CREATININE 0.57 MG/DL (0.60-1.30)
[2018-01-14] MEDS: POTASSIUM CHLOR 20 MEQ PREMIX 100 ML IV SCH ×2 (06:25→10:01)
[2018-01-14] MEDS: FAMOTIDINE 20 MG/2 ML VIAL IV PUSH SCH ×2 (09:20→20:38)
[2018-01-14] MEDS: SODIUM CHLORIDE 0.9% FLUSH 10 ML FLUSH IV FLUSH SCH ×2 (09:20→20:38)
[2018-01-14] MEDS: methylPREDNISolone SOD SUCC 40 MG/1 ML VIAL IV PUSH SCH ×2 (09:20→20:39)
--- NOTE | 2018-01-14 11:43 | HHI.GIFU ---
Subjective Remarks Resting in the room Family member present Altered mental status, probably chronic Mild mid abdominal tenderness with light palpation (Trinidad Phillips) Objective Vitals I&O Vital Signs Date Time Temp Pulse Resp B/P (MAP) Pulse Ox O2 Delivery O2 Flow Rate FiO2 01/14/18 04:28 72 01/14/18 04:27 97.7 75 16 127/73 (91) 99 01/14/18 02:00 94 01/14/18 01:00 70 01/14/18 00:41 97.2 73 16 137/83 (101) 98 01/14/18 00:08 82 01/13/18 23:00 72 01/13/18 22:00 76 01/13/18 21:00 92 01/13/18 20:07 83 01/13/18 19:46 97.7 73 16 132/81 (98) 100 01/13/18 19:00 80 01/13/18 18:18 97.5 80 20 136/78 (97) 97 01/13/18 16:00 91 01/13/18 13:10 97.9 98 18 121/73 (89) 98 01/13/18 12:00 89 I/O 01/13/18 01/13/18 01/13/18 01/14/18 01/14/18 01/14/18 07:00 15:00 23:00 07:00 15:00 23:00 Intake Total 1200 ml 200 ml 1200 ml 100 ml Output Total 700 ml 1250 ml Balance 500 ml 200 ml 1200 ml -1150 ml Intake Oral 0 ml IV Total 1200 ml 200 ml 1200 ml 100 ml Stool Total 700 ml 1250 ml # Voids 3 4 # Bowel Movements 3 1 9 Laboratory Laboratory Tests Test 01/14/18 04:30 Blood Urea Nitrogen 13 Creatinine 0.57 Random Glucose 148 Calcium Level 8.2 Sodium Level 143 Potassium Level 2.9 Chloride Level 110 Carbon Dioxide Level 22.1 Anion Gap 11 Estimat Glomerular Filtration Rate 143 Date/Time Source Procedure Growth Status 01/12/18 22:29 Stool Stool Cryptosporidium Exam - Final NEGATIVE - NO CRYPTOSPORIDIUM ANTIGEN... Complete 01/12/18 22:29 Stool Stool Giardia Antigen (MEAGAN) - Final NEGATIVE - NO GIARDIA ANTIGEN DETECTE... Complete Imaging Last Impressions Abdomen X-Ray 01/13/18 0600 Signed Impressions: Service Date/Time: Saturday, January 13, 2018 10:22 - CONCLUSION: Air-filled mildly dilated loops of small bowel suggesting possible small bowel obstruction. Stable right lung mass. Mild degenerative changes and scoliosis of the thoracolumbar spine. Elevation of the right hemidiaphragm. Sam Aranda MD Chest X-Ray 01/11/18 1525 Signed Impressions: Service Date/Time: Thursday, January 11, 2018 15:41 - CONCLUSION: 1. Enlarging right upper lobe mass measuring 3.2 cm. 2. No significant subdiaphragmatic free air. Cuco Irving MD Abdomen/Pelvis CT 01/11/18 1525 Signed Impressions: Service Date/Time: Thursday, January 11, 2018 18:18 - CONCLUSION: 1. There is at least a partial distal small bowel obstruction with diffuse proximal dilatation of small bowel and air-fluid levels. There is mural thickening and luminal narrowing of approximately 10 cm length of terminal ileum suspicious for some form of terminal ileitis. 2. Increase in size of left lung nodule and left hepatic lobe nodule suspicious for metastatic disease. These were noted on prior examinations. Usama Burton MD Physical Exam HEENT: Pupils round and reactive to light; normocephalic; atraumatic; no jaundice. Frail NECK: Neck is supple CHEST: Chest without obvious shortness of breath rhonchi or wheezing, diminished breath sounds at the bases CARDIAC: Regular rate and rhythm with no murmur gallop or rubs. ABDOMEN: taut, Soft, mid abdominal tenderness with light palpation bowel sounds are present in all four quadrants. EXTREMITIES: No clubbing, cyanosis, or edema. SKIN: Thin turgor; no rash; no jaundice. INFORMATION SYSTEMS TECHNICIAN: Generalized disorientation to situation (Trinidad Phillips) Assessment and Plan Plan Assessment: - SBO- CT abdomen and pelvis W/O contrast --> There is at least a partial distal SBO with diffuse proximal dilatation of small bowel and air-fluid levels. There is mural thickening and luminal narrowing of approx 10 cm length of terminal ileum suspicious for some form of terminal ileitis. RN was unsuccessful at NG tube placement, due to pts previous sinus surgery. Our service has been consulted to evaluate other possibilities. Per Dr. Obando with no plans for surgery. Previous SBO in September, resolved with medical management. - Diarrhea- Pt reports chronic since being started on chemotherapy- previously on medication to help with this, however states caused severe constipation - Dysphagia and odynophagia- since radiation, last tx in April- oncologist has discussed possibility of PEG with pt, states not interested. Tries to take Ensure at home - Anemia, Macrocytic - Electrolyte imbalance- hyponatremia, hypochloremia, hypokalemia - 01/14/18, Seen 01/13/18 per GS, SBFT cancelled , CT showed terminal ileitis, , recommends medical management, not a surgical candidate Stool studies negative. Previous [facility]AL[facility]: EGD (Aug 2017)--> Radiation esophagitis, gastritis antrum, hiatal hernia. Sigmoidoscopy (Aug 2017) --> Diverticulosis in the sigmoid and descending colon, multiple ulcers in descending and sigmoid consistent with ischemic colitis (pathology not consistent with this ) internal and external hemorrhoids. CTA less than 50% proximal SMA stenosis. High grade distal aortic stenosis and critical proximal left iliac stenosis. 01/14/18, partial small bowel obstruction, patient is up walking around in room no nausea or vomiting noted in the past 24 hours. Patient is going down for second part of x-rays initiated yesterday, initially small bowel follow-through was canceled yesterday per GS, but oncology recommended small bowel follow through, small bowel follow-through BM, completed today. Results showed delayed transit with no focal abnormality identified note is made that the distal small bowel is not well visualized which was abnormal on CT findings are most consistent with a partial small bowel obstruction No NG tube needed for now. According to CT patient has probable terminal ileitis. Patient is begging for coffee and liquids this afternoon. We'll trial clear liquids, but if patient has nausea or vomiting. After contacting NPO Plan: Trial clear liquids IVF Monitor labs, electrolytes Zosyn IV steroids Flagyl Zofran PRN nausea Monitor for any acute bleeding episodes Further recommendations based on clinical course Pt has been seen and examined by myself and Dr. Demarco and this note is written on his behalf (Trinidad Phillips) Physician Comments Patient seen and examined Agree with above Continue with current supportive care Monitor lab Would recommend low residue and liquid nutrition at this point Not much to add from a GI perspective we will sign off (Rene Demarco MD) Trinidad Phillips Jan 14, 2018 11:43 Rene Demarco MD Jan 14, 2018 22:44
--- NOTE | 2018-01-14 12:06 | PD.ONC.PN ---
Subjective Subjective Remarks Afebrile overnight. Patient resting in bed. wants to go home. having diarrhea now. no vomiting but remains NPO except ice chips. Objective Data Date Time Temp Pulse Resp B/P (MAP) Pulse Ox O2 Delivery O2 Flow Rate FiO2 01/14/18 04:28 72 01/14/18 04:27 97.7 75 16 127/73 (91) 99 01/14/18 02:00 94 01/14/18 01:00 70 01/14/18 00:41 97.2 73 16 137/83 (101) 98 01/14/18 00:08 82 01/13/18 23:00 72 01/13/18 22:00 76 01/13/18 21:00 92 01/13/18 20:07 83 01/13/18 19:46 97.7 73 16 132/81 (98) 100 01/13/18 19:00 80 01/13/18 18:18 97.5 80 20 136/78 (97) 97 01/13/18 16:00 91 01/13/18 13:10 97.9 98 18 121/73 (89) 98 01/14/18 01/14/18 01/14/18 07:00 15:00 23:00 Intake Total 100 ml Output Total 1250 ml Balance -1150 ml Result Diagram: 01/13/18 0418 01/14/18 0430 Laboratory Results Laboratory Tests Test 01/14/18 04:30 Blood Urea Nitrogen 13 MG/DL Creatinine 0.57 MG/DL Random Glucose 148 MG/DL Calcium Level 8.2 MG/DL Sodium Level 143 MEQ/L Potassium Level 2.9 MEQ/L Chloride Level 110 MEQ/L Carbon Dioxide Level 22.1 MEQ/L Anion Gap 11 MEQ/L Estimat Glomerular Filtration Rate 143 ML/MIN Culture Results Microbiology Date/Time Source Procedure Growth Status 01/12/18 22:29 Stool Stool Cryptosporidium Exam - Final NEGATIVE - NO CRYPTOSPORIDIUM ANTIGEN... Complete 01/12/18 22:29 Stool Stool Giardia Antigen (MEAGAN) - Final NEGATIVE - NO GIARDIA ANTIGEN DETECTE... Complete 01/12/18 22:29 Stool Stool - Final NO ENTERIC PATHOGENS DETECTED BY PCR... Complete Administered Medications Medications (Trade) Dose Ordered Sig/Dana Route PRN Reason Start Time Stop Time Status Last Admin Dose Admin Piperacillin Sod/ Tazobactam Sod 100 ml @ 200 mls/hr Q6H IV 01/11/18 20:00 01/14/18 09:20 Sodium Chloride (NS Flush) 2 ml BID IV FLUSH 01/11/18 21:00 01/14/18 09:20 Ondansetron HCl (Zofran Inj) 4 mg Q6H PRN IVP NAUSEA OR VOMITING 01/11/18 19:30 01/13/18 21:26 Morphine Sulfate (Morphine Inj) 1 mg Q3H PRN IV PUSH Pain 3-5 01/11/18 19:30 01/14/18 06:25 Morphine Sulfate (Morphine Inj) 2 mg Q3H PRN IV PUSH Pain 6-10 01/11/18 19:30 01/14/18 09:55 Lorazepam (Ativan Inj) 1 mg Q3H PRN IV PUSH ANXIETY/NAUSEA/VOMITING 01/11/18 20:00 Future Hold 01/13/18 04:27 Famotidine (Pepcid Inj) 20 mg Q12H IV PUSH 01/11/18 21:00 01/14/18 09:20 Potassium Chloride/Sodium Chloride 1,000 ml @ 100 mls/hr Q10H IV 01/12/18 09:45 01/13/18 19:50 Methylprednisolone Sodium Succinate (SoluMEDROL INJ) 40 mg Q12HR IV PUSH 01/12/18 21:00 01/14/18 09:20 Metronidazole 100 ml @ 100 mls/hr Q8H IV 01/12/18 20:00 01/14/18 04:33 Objective Remarks GENERAL: thin middle aged male, sitting up in bed in [facility]. SKIN: Warm and dry. HEAD: Normocephalic. EYES: No injection or drainage. NECK: Supple, trachea midline. CARDIOVASCULAR: Regular rate and rhythm RESPIRATORY: Breath sounds equal bilaterally. No accessory muscle use. GASTROINTESTINAL: Abdomen soft, non-tender, nondistended. EXTREMITIES: No cyanosis NEUROLOGICAL: awake and alert. normal speech. moving extremities. Assessment/Plan Problem List: (1) SBO (small bowel obstruction) ICD Codes: K56.609 - Unspecified intestinal obstruction, unspecified as to partial versus complete obstruction Plan: --Abdominal CTA shows at least a partial distal small bowel obstruction with diffuse proximal dilatation of small bowel and air-fluid levels. There is mural thickening and luminal narrowing of approximately 10 cm length of terminal ileum suspicious for some form of terminal ileitis. --GI planning SBFT (2) Esophageal cancer ICD Codes: C15.9 - Malignant neoplasm of esophagus, unspecified Plan: -- Patient was originally diagnosed in March 2017 with esophageal cancer with metastatic disease to the lungs. He has progressed on multiple lines of therapy. Most recently he has been on single agent irinotecan with the last dose given on 01/08/18. -- CT scan on 01/12/18 showed increase in size of the left lung nodule and the left hepatic lobe. (3) Altered mental status ICD Codes: R41.82 - Altered mental status, unspecified Plan: per Zee, patient has been hallucinating and acting unlike himself. --will obtain MRI brain Assessment 67-year-old male with metastatic esophageal cancer admitted for small bowel obstruction Plan 1. proceed with SBFT per GI 2. continue supportive care Attending Statement The exam, history, and the medical decision-making described in the above note were completed with the assistance of the mid-level provider. I reviewed and agree with the findings presented. I attest that I had a [id number]-yc-[id number] encounter with the patient on the same day, and personally performed and documented my assessment and findings in the medical record. PT seen and examined. Events over the weekend noted. SBO partial, now resolved, diarrhea noted, electrolyte abn. Delirium but better, pt awake alert and appropriate, looking forward to trying different therapy. Discussed continue clear for now, possibly advance diet tomorrow. Monitor for dysphagia, pt would like to avoid feeding tube. Question if electrolyte, pain meds, steroids contribute to delirium. No focal deficits. Continue support, MVI, IVF, KCL replacement. Decrease steroids Tracy Barahona Jan 14, 2018 12:06 Kanika Corona MD Jan 14, 2018 18:59
--- NOTE | 2018-01-14 12:08 | HHI.PR ---
Subjective Remarks Patient is having diarrhea. Mild abdominal discomfort. No nausea or vomiting. Objective Vitals Vital Signs Date Time Temp Pulse Resp B/P (MAP) Pulse Ox O2 Delivery O2 Flow Rate FiO2 01/14/18 04:28 72 01/14/18 04:27 97.7 75 16 127/73 (91) 99 01/14/18 02:00 94 01/14/18 01:00 70 01/14/18 00:41 97.2 73 16 137/83 (101) 98 01/14/18 00:08 82 01/13/18 23:00 72 01/13/18 22:00 76 01/13/18 21:00 92 01/13/18 20:07 83 01/13/18 19:46 97.7 73 16 132/81 (98) 100 01/13/18 19:00 80 01/13/18 18:18 97.5 80 20 136/78 (97) 97 01/13/18 16:00 91 01/13/18 13:10 97.9 98 18 121/73 (89) 98 I/O 01/13/18 01/13/18 01/13/18 01/14/18 01/14/18 01/14/18 07:00 15:00 23:00 07:00 15:00 23:00 Intake Total 1200 ml 200 ml 1200 ml 100 ml Output Total 700 ml 1250 ml Balance 500 ml 200 ml 1200 ml -1150 ml Intake Oral 0 ml IV Total 1200 ml 200 ml 1200 ml 100 ml Stool Total 700 ml 1250 ml # Voids 3 4 # Bowel Movements 3 1 9 Result Diagram: 01/13/18 0418 01/14/18 0430 Objective Remarks GENERAL: Chronically ill appearing male CARDIOVASCULAR: Normal rate and regular rhythm without murmurs, gallops, or rubs. RESPIRATORY: Good respiratory efforts. Breath sounds equal and clear to auscultation bilaterally. GASTROINTESTINAL: Abdomen soft, non-tender, non-distended. Hypoactive bowel sounds. MUSCULOSKELETAL: Extremities without cyanosis, or edema. NEURO: Alert & Oriented x4 to person, place, time, situation. Moves all ext x4 PSYCH: Calm Procedures None A/P Problem List: (1) SBO (small bowel obstruction) ICD Code: K56.609 - Unspecified intestinal obstruction, unspecified as to partial versus complete obstruction Plan: Secondary to terminal ileitis. Appreciate general surgery input. Recommends medical management. Agree with advancing diet. Further plan per GI (2) Ileitis ICD Code: K52.9 - Noninfective gastroenteritis and colitis, unspecified Plan: Appreciate GI following. Continue antibiotics and Solu-Medrol. -Follow progress. (3) Esophageal cancer ICD Code: C15.9 - Malignant neoplasm of esophagus, unspecified Plan: Appreciate oncology following. Recent treatment with chemotherapy. Unclear how much nutrition patient can tolerate orally. If he continues to decline, he may need a PEG tube. Supportive care as above. Advance diet (4) Hyponatremia ICD Code: E87.1 - Hypo-osmolality and hyponatremia Plan: Resolved (5) Hypokalemia ICD Code: E87.6 - Hypokalemia Plan: Secondary to GI loss. Replace and monitor Assessment and Plan GI prophylaxis: Famotidine. DVT prophylaxis: GRECIA Doan. Renetta Bhatia MD Jan 14, 2018 12:08
--- NOTE | 2018-01-14 13:00 | RADRPT ---
EXAM DATE/TIME: 01/13/2018 13:57 [facility] COMPARISON: CT ABDOMEN & PELVIS W CONTRAST, January 11, 2018, 18:18. INDICATIONS : Patient with abdominal pain and abnormal bowel gas pattern seen on CT. Patient has metastatic esophag eal cancer. FLUORO TIME: 0 minutes IMAGE COUNT: 7 CONTRAST: MD Geller IMAGING TIME(S): 15 min, 2 hrs, 6 hrs, 24 hrs MEDICAL HISTORY : Chronic obstructive pulmonary disease. Carcinoma, lung. Carcinoma, hepatocellular SURGICAL HISTORY : Appendectomy. ENCOUNTER: Initial ACUITY: 3 days PAIN SCORE: 6/10 LOCATION: Bilateral abdomen FINDINGS: Preliminary biological science technician fish film demonstrates multiple loops of borderline dilated air-containing small bowel i n the central abdomen. There is no free air. The stomach is grossly unremarkable. Examination of the small bowel demonstrates dilatation of the majority of the small bowel measuring u p to approximately 5 cm in greatest diameter. This is fairly uniform in appearance and on the 6 hour delayed images there was contrast noted to the level of the mid-distal ileum. No focal mass or strict ure is identified. There is no evidence of a fistula. A 24-hour delayed film was obtained and demonstrated contrast throughout the colon. There are multipl e loops of borderline dilated air-containing small bowel. Majority of the contrast passed into the co vanessa. CONCLUSION: Abnormal small bowel follow-through with delayed transit and no focal abnormality kiet ntified. Note is made that the distal small bowel is not well visualized which was abnormal on CT. On the delayed 24-hour images the majority of the contrast is present in the colon. Findings are most c onsistent with a partial small bowel obstruction. Jason Howard MD on January 14, 2018 at 12:52 Board Certified Radiologist. This report was verified electronically.
--- NOTE | 2018-01-14 13:58 | HHI.PR ---
cc: Lionel Hoff MD Subjective Subjective Notes "What's going on? I want to go home today!" Patient ambulating in the room Objective Vitals/I&O Vital Signs Date Time Temp Pulse Resp B/P (MAP) Pulse Ox O2 Delivery O2 Flow Rate FiO2 01/14/18 09:00 97.5 96 18 130/82 (98) 100 Labs Laboratory Tests Test 01/14/18 04:30 Blood Urea Nitrogen 13 Creatinine 0.57 Random Glucose 148 Calcium Level 8.2 Sodium Level 143 Potassium Level 2.9 Chloride Level 110 Carbon Dioxide Level 22.1 Anion Gap 11 Estimat Glomerular Filtration Rate 143 Date/Time Source Procedure Growth Status 01/12/18 22:29 Stool Stool Cryptosporidium Exam - Final NEGATIVE - NO CRYPTOSPORIDIUM ANTIGEN... Complete 01/12/18 22:29 Stool Stool Giardia Antigen (MEAGAN) - Final NEGATIVE - NO GIARDIA ANTIGEN DETECTE... Complete Radiology CT scan shows diffuse dilatation of the small bowel with terminal ileal inflammatory changes with narrowing of the lumen consistent with terminal ileitis. I do not see findings classically consistent with adhesional obstruction of the bowel. Cardiovascular: Regular Lungs: Clear Abdomen: Other (mildly distended; non tender ) Extremities: No edema A/P Assessment and Plan 67 year old male diagnosis of metastatic esophageal cancer; terminal ileitis -Last XR of SBFT today -+BM -Continue medical management -Poor surgical candidate -GI following -GS will sign off; please call with questions. Tiffanie Driscoll/Automotive Quality Manager FURNACE AND WASH EQUIPMENT OPERATOR Jan 14, 2018 13:58
[2018-01-14] MEDS ORDERED: POTASSIUM CHLOR 20 MEQ PREMIX 100 ML IV ONE (15:15)
[2018-01-14] MEDS ORDERED: [UNRECOGNIZED DRUG - OTHER] IV SCH ×3 (20:00)
[2018-01-14] MEDS ORDERED: MULTIVITAMIN IV SCH ×3 (20:00)
[2018-01-14] MEDS ORDERED: POTASSIUM CHLORIDE IV SCH ×3 (20:00)
[2018-01-14] MEDS ORDERED: DEXTROSE 5% IV SCH ×3 (20:00)
[2018-01-14 20:04] LABS: BICARBONATE 24.8 MEQ/L (21.0-32.0); CALCIUM 8.6 MG/DL (8.5-10.1); CREATININE 0.66 MG/DL (0.60-1.30)
[2018-01-14] MEDS: [UNRECOGNIZED DRUG - OTHER] IV SCH ×3 (22:21)
[2018-01-14] MEDS: POTASSIUM CHLORIDE IV SCH ×3 (22:21)
[2018-01-14] MEDS: MULTIVITAMIN IV SCH ×3 (22:21)
[2018-01-14] MEDS: DEXTROSE 5% IV SCH ×3 (22:21)
[2018-01-15] VITALS (18 sets, daily range): BP systolic 118–133; BP diastolic 71–89; PULSE 62–94; RESP 16–18; TEMP 97.3–98.4; O2SAT 97–100
[2018-01-15] MEDS: PIPERACIL-TAZO 4.5 GM PREMIX 100 ML IV SCH ×3 (01:22→15:24)
[2018-01-15] MEDS: MORPHINE SULFATE 2 MG/ML INJ IV PUSH PRN ×7 (01:22→21:38)
[2018-01-15] MEDS: metroNIDAZOLE 500 MG INJ 100 ML IV SCH ×3 (03:55→19:57)
[2018-01-15] MEDS: ONDANSETRON HCL 4 MG/2 ML VIAL IVP PRN (03:56)
[2018-01-15] MEDS: POTASSIUM CHLORIDE IV SCH ×9 (03:57→17:24)
[2018-01-15] MEDS: [UNRECOGNIZED DRUG - OTHER] IV SCH ×9 (03:57→17:24)
[2018-01-15] MEDS: MULTIVITAMIN IV SCH ×9 (03:57→17:24)
[2018-01-15] MEDS: DEXTROSE 5% IV SCH ×9 (03:57→17:24)
[2018-01-15 06:23] LABS: HEMATOCRIT 24.1 % (39.0-51.0); HEMOGLOBIN 8.4 GM/DL (13.0-17.0); MEAN CELL VOLUME 109.9 FL (80.0-100.0); MEAN CORPUSCULAR HEMOGLOBIN 38.5 PG (27.0-34.0); MEAN PLATELET VOLUME 6.4 FL (7.0-11.0); PLATELET COUNT 186 TH/MM3 (150-450); RED BLOOD COUNT 2.19 MIL/MM3 (4.50-5.90); RED CELL DISTRIBUTION WIDTH 14.4 % (11.6-17.2); WHITE BLOOD COUNT 5.5 TH/MM3 (4.0-11.0)
[2018-01-15 06:47] LABS: CALCIUM 7.9 MG/DL (8.5-10.1); CREATININE 0.5 MG/DL (0.60-1.30)
[2018-01-15] MEDS: FAMOTIDINE 20 MG/2 ML VIAL IV PUSH SCH ×2 (08:09→19:59)
[2018-01-15] MEDS: methylPREDNISolone SOD SUCC 40 MG/1 ML VIAL IV PUSH SCH ×2 (08:09→19:58)
[2018-01-15 08:55] LABS: IRON (FE) 88 MCG/DL (65-175)
[2018-01-15] MEDS ORDERED: GADODIAMIDE PF 287 MG/ML 5 ML VIAL (for RAD MRI) IVCONTRAST ONE (09:35)
[2018-01-15 10:09] LABS: % SATURATION IRON PROFILE 77.6 % (20-50); FERRITIN 653 NG/ML (26-388); TOTAL IRON BINDING CAPACITY 113 MCG/DL (250-450)
--- NOTE | 2018-01-15 10:20 | RADRPT ---
EXAM DATE/TIME: 01/15/2018 09:20 [facility] COMPARISON: No previous studies available for comparison. INDICATIONS : Confusion. Metastasis. CONTRAST: 11 cc Omniscan (gadodiamide) IV MEDICAL HISTORY : Carcinoma, esophageal. Chronic obstructive pulmonary disease. SURGICAL HISTORY : Appendectomy. Tonsillectomy. ENCOUNTER: Subsequent ACUITY: 4-6 days PAIN SCORE: 0/10 LOCATION: head. TECHNIQUE: Multiplanar, multisequence MRI of the brain was performed both prior to and following the administrat ion of paramagnetic contrast. FINDINGS: CEREBRUM: The ventricles are normal for age. No evidence of midline shift, mass lesion, hemorrhage or acute in farction. No extraaxial fluid collections are seen. The pituitary gland and suprasellar cistern are normal in configuration. WHITE MATTER: No significant signal abnormalities are seen in the white matter. POSTERIOR FOSSA: The cerebellum and brainstem are intact. The 4th ventricle is midline. The cerebellopontine angle is unremarkable. The cerebellar tonsils are normal in position. DIFFUSION IMAGING: No focal areas of restricted diffusion are seen. No evidence of acute infarction. EXTRACRANIAL: The visualized portions of the orbits and paranasal sinuses are unremarkable. POST-CONTRAST: No abnormal areas of parenchymal or dural enhancement. No evidence of blood-brain barrier breakdown. CONCLUSION: 1. Unremarkable exam. 2. No evidence of metastatic disease, acute infarct, hemorrhage, mass, edema or enhancing lesions. Tomi Goncalves MD on January 15, 2018 at 10:14 Board Certified Radiologist. This report was verified electronically.
[2018-01-15] MEDS: POTASSIUM CHLORIDE INJ 30 MEQ in SODIUM CHLORIDE 0.9% INJ 100 ML IV SCH ×2 (10:46→18:34)
[2018-01-15] MEDS: SODIUM CHLORIDE 0.9% FLUSH 10 ML FLUSH IV FLUSH SCH ×2 (10:52→19:59)
--- NOTE | 2018-01-15 11:18 | HHI.PR ---
Subjective Remarks Patient states he tolerated liquid diet. He denies any nausea or vomiting. Afebrile. K is low. Objective Vitals Vital Signs Date Time Temp Pulse Resp B/P (MAP) Pulse Ox O2 Delivery O2 Flow Rate FiO2 01/15/18 08:25 97.3 70 16 127/78 (94) 97 01/15/18 04:54 16 01/15/18 04:03 97.9 74 18 130/89 (103) 99 01/15/18 00:06 98.3 78 16 133/85 (101) 100 01/14/18 20:43 97.9 85 18 139/87 (104) 100 01/14/18 17:45 97.6 85 16 136/85 (102) 100 01/14/18 12:00 97.0 96 18 127/84 (98) 100 I/O 01/14/18 01/14/18 01/14/18 01/15/18 01/15/18 01/15/18 07:00 15:00 23:00 07:00 15:00 23:00 Intake Total 100 ml 420 ml Output Total 1250 ml Balance -1150 ml 420 ml Intake Oral 420 ml IV Total 100 ml Stool Total 1250 ml # Voids 5 3 # Bowel Movements 9 4 3 Result Diagram: 01/15/18 0608 01/15/18 0608 Objective Remarks GENERAL: Chronically ill appearing male CARDIOVASCULAR: Normal rate and regular rhythm without murmurs, gallops, or rubs. RESPIRATORY: Good respiratory efforts. Breath sounds equal and clear to auscultation bilaterally. GASTROINTESTINAL: Abdomen soft, non-tender, non-distended. Hypoactive bowel sounds. MUSCULOSKELETAL: Extremities without cyanosis, or edema. NEURO: Alert & Oriented x4 to person, place, time, situation. Moves all ext x4 PSYCH: Calm Procedures None A/P Problem List: (1) SBO (small bowel obstruction) ICD Code: K56.609 - Unspecified intestinal obstruction, unspecified as to partial versus complete obstruction Plan: Secondary to terminal ileitis. Appreciate general surgery input. Recommends medical management. This appear to be resolving. Advance to soft diet. GI signed off. (2) Ileitis ICD Code: K52.9 - Noninfective gastroenteritis and colitis, unspecified Plan: Patient improved on antibiotics and steroids Transition to oral Cipro and Flagyl. Prednisone. (3) Esophageal cancer ICD Code: C15.9 - Malignant neoplasm of esophagus, unspecified Plan: Appreciate oncology following. Recent treatment with chemotherapy. Further plans per Oncology. Advance diet as tolerated. Encouraged the patient to eat. (4) Hypokalemia ICD Code: E87.6 - Hypokalemia Plan: Secondary to GI loss. Replace and monitor Assessment and Plan GI prophylaxis: Famotidine. DVT prophylaxis: GRECIA Doan. Renetta Bhatia MD Jan 15, 2018 11:18
--- NOTE | 2018-01-15 13:08 | PD.ONC.PN ---
Subjective Subjective Remarks Afebrile overnight. Patient resting in bed in nad. No complaints. tolerated a clear liquid diet yesterday. today his diet has been advanced to heart healthy. Objective Data Date Time Temp Pulse Resp B/P (MAP) Pulse Ox O2 Delivery O2 Flow Rate FiO2 01/15/18 08:25 97.3 70 16 127/78 (94) 97 01/15/18 04:54 16 01/15/18 04:03 97.9 74 18 130/89 (103) 99 01/15/18 00:06 98.3 78 16 133/85 (101) 100 01/14/18 20:43 97.9 85 18 139/87 (104) 100 01/14/18 17:45 97.6 85 16 136/85 (102) 100 Result Diagram: 01/15/18 0608 01/15/18 0608 Laboratory Results Laboratory Tests Test 01/14/18 17:40 01/15/18 06:08 Blood Urea Nitrogen 13 MG/DL 8 MG/DL Creatinine 0.66 MG/DL 0.50 MG/DL Random Glucose 162 MG/DL 138 MG/DL Calcium Level 8.6 MG/DL 7.9 MG/DL Sodium Level 142 MEQ/L 136 MEQ/L Potassium Level 3.0 MEQ/L 3.0 MEQ/L Chloride Level 109 MEQ/L 104 MEQ/L Carbon Dioxide Level 24.8 MEQ/L 24.0 MEQ/L Anion Gap 8 MEQ/L 8 MEQ/L Estimat Glomerular Filtration Rate 121 ML/MIN 167 ML/MIN White Blood Count 5.5 TH/MM3 Red Blood Count 2.19 MIL/MM3 Hemoglobin 8.4 GM/DL Hematocrit 24.1 % Mean Corpuscular Volume 109.9 FL Mean Corpuscular Hemoglobin 38.5 PG Mean Corpuscular Hemoglobin Concent 35.0 % Red Cell Distribution Width 14.4 % Platelet Count 186 TH/MM3 Mean Platelet Volume 6.4 FL Iron Level 88 MCG/DL Total Iron Binding Capacity 113 MCG/DL Percent Iron Saturation 77.6 % Ferritin 653 NG/ML Vitamin B12 Level GREATER THAN 2000 PG/ML Culture Results Microbiology Date/Time Source Procedure Growth Status 01/12/18 22:29 Stool Stool Cryptosporidium Exam - Final NEGATIVE - NO CRYPTOSPORIDIUM ANTIGEN... Complete 01/12/18 22:29 Stool Stool Giardia Antigen ([facility]) - Final NEGATIVE - NO GIARDIA ANTIGEN DETECTE... Complete 01/12/18 22:29 Stool Stool - Final NO ENTERIC PATHOGENS DETECTED BY PCR... Complete Administered Medications Medications (Trade) Dose Ordered Sig/Dana Route PRN Reason Start Time Stop Time Status Last Admin Dose Admin Piperacillin Sod/ Tazobactam Sod 100 ml @ 200 mls/hr Q6H IV 01/11/18 20:00 01/15/18 08:09 Sodium Chloride (NS Flush) 2 ml BID IV FLUSH 01/11/18 21:00 01/15/18 10:52 Ondansetron HCl (Zofran Inj) 4 mg Q6H PRN IVP NAUSEA OR VOMITING 01/11/18 19:30 01/15/18 03:56 Morphine Sulfate (Morphine Inj) 1 mg Q3H PRN IV PUSH Pain 3-5 01/11/18 19:30 01/15/18 12:07 Morphine Sulfate (Morphine Inj) 2 mg Q3H PRN IV PUSH Pain 6-10 01/11/18 19:30 01/15/18 08:19 Lorazepam (Ativan Inj) 1 mg Q3H PRN IV PUSH ANXIETY/NAUSEA/VOMITING 01/11/18 20:00 Future Hold 01/13/18 04:27 Famotidine (Pepcid Inj) 20 mg Q12H IV PUSH 01/11/18 21:00 01/15/18 08:09 Metronidazole 100 ml @ 100 mls/hr Q8H IV 01/12/18 20:00 01/15/18 12:15 Methylprednisolone Sodium Succinate (SoluMEDROL INJ) 20 mg Q12HR IV PUSH 01/14/18 21:00 01/15/18 08:09 Multivitamins 5 ml/Potassium Chloride 10 meq/ Dextrose 510 ml @ 100 mls/hr Q5H6M IV 01/14/18 21:00 01/15/18 12:07 Potassium Chloride 30 meq/ Sodium Chloride 115 ml @ 33 mls/hr Q3H IV 01/15/18 10:00 01/15/18 15:59 01/15/18 10:46 Objective Remarks GENERAL: Thin male, lying supine in bed in nad. SKIN: Warm and dry. HEAD: Normocephalic. EYES: No injection or drainage. NECK: Supple, trachea midline. CARDIOVASCULAR: Regular rate and rhythm RESPIRATORY: Breath sounds equal bilaterally. No accessory muscle use. GASTROINTESTINAL: Abdomen soft, non-tender, nondistended. EXTREMITIES: No cyanosis NEUROLOGICAL: no focal deficit. Assessment/Plan Problem List: (1) SBO (small bowel obstruction) ICD Codes: K56.609 - Unspecified intestinal obstruction, unspecified as to partial versus complete obstruction Plan: --now resolved. --continue to advanced diet as tolerated. --Monitor for dysphagia, pt would like to avoid feeding tube. --Abdominal CTA shows at least a partial distal small bowel obstruction with diffuse proximal dilatation of small bowel and air-fluid levels. There is mural thickening and luminal narrowing of approximately 10 cm length of terminal ileum suspicious for some form of terminal ileitis. 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 He has progressed on multiple lines of therapy. Most recently he has been on single agent irinotecan with the last dose given on 01/08/18. -- CT scan on 01/12/18 showed increase in size of the left lung nodule and the left hepatic lobe. Assessment 67-year-old male with metastatic esophageal cancer admitted for small bowel obstruction Plan 1. advance diet as tolerated 2. monitor and replace electrolytes as needed 3. continue supportive care Attending Statement The exam, history, and the medical decision-making described in the above note were completed with the assistance of the mid-level provider. I reviewed and agree with the findings presented. I attest that I had a [id number] encounter with the patient on the same day, and personally performed and documented my assessment and findings in the medical record. He had a formed BM. reports he's more like himself. MRI results reviewed. K still low- being replaced IV. Taking PO well, tolerated heart healthy diet. No nausea or vomiting. BS present abd soft. Discussed plan for palliative therapy with Xeloda, progression on Irinotecan. Continue to monitor resolution toxicity last treatment. Ok for DC from heme/onc standpoint with follow up as out patient. Tracy Barahona Jan 15, 2018 13:08 Kanika Corona MD Jan 15, 2018 18:27
[2018-01-15] MEDS: metroNIDAZOLE 500 MG TAB PO SCH (21:35)
[2018-01-15] MEDS ORDERED: PRED10PA PO (23:51)
[2018-01-15] MEDS ORDERED: CIPR-9 PO (23:51)
[2018-01-15] MEDS ORDERED: METR-1 PO (23:51)
[2018-01-16] VITALS (11 sets, daily range): BP systolic 117–127; BP diastolic 71–79; PULSE 62–99; RESP 16–18; TEMP 97.7–98.9; O2SAT 98–100
[2018-01-16] MEDS: metroNIDAZOLE 500 MG TAB PO SCH (04:39)
[2018-01-16 05:58] LABS: AUTOMATED NEUTROPHIL # 2.7 TH/MM3 (1.8-7.7); BASOPHIL % 0.1 % (0.0-2.0); HEMATOCRIT 27.5 % (39.0-51.0); HEMOGLOBIN 9.5 GM/DL (13.0-17.0); LYMPH % 10.6 % (9.0-44.0); LYMPHOCYTE # 0.4 TH/MM3 (1.0-4.8); MEAN CELL VOLUME 109.5 FL (80.0-100.0); MEAN CORPUSCULAR HEMOGLOBIN 37.9 PG (27.0-34.0); MEAN CORPUSCULAR HGB CONC 34.6 % (32.0-36.0); MEAN PLATELET VOLUME 6.7 FL (7.0-11.0); MONOCYTE # 0.5 TH/MM3 (0-0.9); NEUT % 75.3 % (16.0-70.0); PLATELET COUNT 200 TH/MM3 (150-450); RED BLOOD COUNT 2.51 MIL/MM3 (4.50-5.90); RED CELL DISTRIBUTION WIDTH 14.4 % (11.6-17.2); WHITE BLOOD COUNT 3.6 TH/MM3 (4.0-11.0)
[2018-01-16] MEDS: ONDANSETRON HCL 4 MG/2 ML VIAL IVP PRN (06:20)
[2018-01-16] MEDS: MORPHINE SULFATE 2 MG/ML INJ IV PUSH PRN ×2 (06:23→10:52)
[2018-01-16 06:24] LABS: AST (GOT) 20 U/L (15-37); BICARBONATE 32.1 MEQ/L (21.0-32.0); BLOOD UREA NITROGEN 5 MG/DL (7-18); CALCIUM 8.4 MG/DL (8.5-10.1); CHLORIDE 100 MEQ/L (98-107); CREATININE 0.39 MG/DL (0.60-1.30); GLOMERULAR FILTRATION RATE 222 ML/MIN (>89); GLUCOSE,RANDOM 98 MG/DL (74-106); SODIUM (NA) 136 MEQ/L (136-145)
[2018-01-16 06:26] LABS: ALT (GPT) 17 U/L (12-78)
[2018-01-16 06:28] LABS: ALKALINE PHOSPHATASE 33 U/L (45-117); TOTAL BILIRUBIN ADULT 0.2 MG/DL (0.2-1.0); TOTAL PROTEIN 4.8 GM/DL (6.4-8.2)
[2018-01-16] MEDS: SODIUM CHLORIDE 0.9% FLUSH 10 ML FLUSH IV FLUSH SCH (08:14)
[2018-01-16] MEDS ORDERED: CIPROFLOXACIN 500 MG TAB PO SCH (09:00)
[2018-01-16] MEDS ORDERED: predniSONE 20 MG TAB PO SCH (09:00)
[2018-01-16] MEDS ORDERED: FAMOTIDINE 20 MG TAB PO SCH (09:00)
--- NOTE | 2018-01-16 10:59 | PD.ONC.PN ---
Subjective Subjective Remarks Afebrile Happy to be going home Asking for morphine prior to discharge Objective Data Date Time Temp Pulse Resp B/P (MAP) Pulse Ox O2 Delivery O2 Flow Rate FiO2 01/16/18 07:35 98.4 70 18 117/71 (86) 98 01/16/18 06:00 84 01/16/18 05:00 68 01/16/18 04:31 98.9 67 16 125/79 (94) 100 01/16/18 04:00 62 01/16/18 04:00 68 01/16/18 02:00 66 01/16/18 01:00 68 01/16/18 00:07 98.6 68 16 123/77 (92) 100 01/16/18 00:00 65 01/15/18 22:00 74 01/15/18 21:00 68 01/15/18 20:16 98.4 70 16 127/74 (91) 100 01/15/18 20:00 69 01/15/18 20:00 70 01/15/18 19:00 94 01/15/18 19:00 86 01/15/18 18:00 64 01/15/18 16:00 72 01/15/18 15:54 98.1 75 18 118/72 (87) 100 01/15/18 15:00 78 01/15/18 15:00 66 01/15/18 14:00 70 01/15/18 13:00 62 01/15/18 12:00 86 01/15/18 12:00 97.9 66 16 126/71 (89) 98 01/15/18 11:00 68 01/16/18 01/16/18 01/16/18 07:00 15:00 23:00 Intake Total 240 ml Output Total 1000 ml Balance -760 ml Result Diagram: 01/16/18 0430 01/16/18 0430 Laboratory Results Laboratory Tests Test 01/16/18 04:30 White Blood Count 3.6 TH/MM3 Red Blood Count 2.51 MIL/MM3 Hemoglobin 9.5 GM/DL Hematocrit 27.5 % Mean Corpuscular Volume 109.5 FL Mean Corpuscular Hemoglobin 37.9 PG Mean Corpuscular Hemoglobin Concent 34.6 % Red Cell Distribution Width 14.4 % Platelet Count 200 TH/MM3 Mean Platelet Volume 6.7 FL Neutrophils (%) (Auto) 75.3 % Lymphocytes (%) (Auto) 10.6 % Monocytes (%) (Auto) 14.0 % Eosinophils (%) (Auto) 0.0 % Basophils (%) (Auto) 0.1 % Neutrophils # (Auto) 2.7 TH/MM3 Lymphocytes # (Auto) 0.4 TH/MM3 Monocytes # (Auto) 0.5 TH/MM3 Eosinophils # (Auto) 0.0 TH/MM3 Basophils # (Auto) 0.0 TH/MM3 CBC Comment DIFF FINAL Differential Comment Blood Urea Nitrogen 5 MG/DL Creatinine 0.39 MG/DL Random Glucose 98 MG/DL Total Protein 4.8 GM/DL Albumin 2.0 GM/DL Calcium Level 8.4 MG/DL Alkaline Phosphatase 33 U/L Aspartate Amino Transf (AST/SGOT) 20 U/L Alanine Aminotransferase (ALT/SGPT) 17 U/L Total Bilirubin 0.2 MG/DL Sodium Level 136 MEQ/L Potassium Level 3.5 MEQ/L Chloride Level 100 MEQ/L Carbon Dioxide Level 32.1 MEQ/L Anion Gap 4 MEQ/L Estimat Glomerular Filtration Rate 222 ML/MIN Administered Medications Medications (Trade) Dose Ordered Sig/Dana Route PRN Reason Start Time Stop Time Status Last Admin Dose Admin Sodium Chloride (NS Flush) 2 ml BID IV FLUSH 01/11/18 21:00 01/16/18 08:14 Ondansetron HCl (Zofran Inj) 4 mg Q6H PRN IVP NAUSEA OR VOMITING 01/11/18 19:30 01/16/18 06:20 Morphine Sulfate (Morphine Inj) 1 mg Q3H PRN IV PUSH Pain 3-5 01/11/18 19:30 01/15/18 18:34 Morphine Sulfate (Morphine Inj) 2 mg Q3H PRN IV PUSH Pain 6-10 01/11/18 19:30 01/16/18 06:23 Lorazepam (Ativan Inj) 1 mg Q3H PRN IV PUSH ANXIETY/NAUSEA/VOMITING 01/11/18 20:00 Future Hold 01/13/18 04:27 Prednisone (Deltasone) 20 mg BID PO 01/16/18 09:00 01/16/18 08:14 Famotidine (Pepcid) 20 mg BID PO 01/16/18 09:00 01/16/18 08:14 Ciprofloxacin (Cipro) 500 mg Q12HR PO 01/16/18 09:00 01/16/18 08:14 Metronidazole (Flagyl) 500 mg Q8HR PO 01/15/18 22:00 01/16/18 04:39 Objective Remarks GENERAL: Disheveled older male resting in bed watching TV in no obvious distress SKIN: Warm and dry. HEAD: Normocephalic. EYES: No injection or drainage. NECK: Supple, trachea midline. CARDIOVASCULAR: Regular rate and rhythm without murmurs. RESPIRATORY: Breath sounds diminished anteriorly. Breathing unlabored at rest. GASTROINTESTINAL: Abdomen soft, non-tender, nondistended. EXTREMITIES: No cyanosis, or edema. MUSCULOSKELETAL: Adequate muscle tone. NEUROLOGICAL: Moving all extremities. Normal speech. No obvious focal deficit. Assessment/Plan Problem List: (1) SBO (small bowel obstruction) ICD Codes: K56.609 - Unspecified intestinal obstruction, unspecified as to partial versus complete obstruction Plan: --now resolved. --continue to advanced diet as tolerated. --Monitor for dysphagia, pt would like to avoid feeding tube. --Abdominal CTA shows at least a partial distal small bowel obstruction with diffuse proximal dilatation of small bowel and air-fluid levels. There is mural thickening and luminal narrowing of approximately 10 cm length of terminal ileum suspicious for some form of terminal ileitis. 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 He has progressed on multiple lines of therapy. Most recently he has been on single agent irinotecan with the last dose given on 01/08/18. -- CT scan on 01/12/18 showed increase in size of the left lung nodule and the left hepatic lobe. Assessment 67-year-old male with metastatic esophageal cancer admitted for small bowel obstruction Plan 1. Patient tolerating regular diet 2. Follow-up in clinic next week to discuss next line chemotherapy; likely will be Xeloda. 3. Supportive care. Attending Statement Agree w/ above. As discussed pt to follow up in clinic, consider different tx w / Xeloda. Lizeth Da Silva Jan 16, 2018 10:59 Kanika Corona MD Jan 16, 2018 18:06
[2018-01-16] MEDS ORDERED: HYDR-3366 PO (12:55)
[2018-01-16] MEDS ORDERED: ACETAMINOPHEN/HYDROcodone 325 MG/10 MG TAB PO PRN (13:00)
--- NOTE | 2018-01-16 17:55 | HHI.DS ---
Discharge Summary Admission Date Jan 11, 2018 at 19:29 Admitting Diagnosis small bowel obstruction (1) SBO (small bowel obstruction) ICD Code: K56.609 - Unspecified intestinal obstruction, unspecified as to partial versus complete obstruction (2) Ileitis ICD Code: K52.9 - Noninfective gastroenteritis and colitis, unspecified (3) Esophageal cancer ICD Code: C15.9 - Malignant neoplasm of esophagus, unspecified (4) Hypokalemia ICD Code: E87.6 - Hypokalemia Procedures None Brief History - From Admission This is a 67-year-old male with PMH of Anxiety, Metastatic Esophageal CA, COPD and Tobacco Abuse who presented to the ER with complaints of abdominal pain x1 day. Reports pain is generalized, intermittent, cramping, 8/10, non-radiating, associated w/ nausea and vomiting. Denies fever or chills. Currently on Chemo , following w/ Dr. Corona, reports h/o constipation since chemo, liquid stool x2 days. On arrival, BP 129/72, HR 119, O2 sat 100% on RA, Temp 99.3. WBC 5.2 , bandemia 32%. Na 126. K+ 3.4. INR 1.1. UA negative for UTI. CXR with enlarging right upper lobe mass measuring 3.[address] Abdomen/Pelvis with partial distal small bowel obstruction and diffuse proximal dilatation of small bowel, terminal ileitis. S/p Zofran w/ resolution of N/V, no NGT placed. CBC/BMP: 01/16/18 0430 01/16/18 0430 Significant Findings Laboratory Tests Test 01/14/18 04:30 01/14/18 17:40 01/15/18 06:08 01/16/18 04:30 Creatinine 0.57 MG/DL (0.60-1.30) 0.50 MG/DL (0.60-1.30) 0.39 MG/DL (0.60-1.30) Random Glucose 148 MG/DL (74-106) 162 MG/DL (74-106) 138 MG/DL (74-106) Calcium Level 8.2 MG/DL (8.5-10.1) 7.9 MG/DL (8.5-10.1) 8.4 MG/DL (8.5-10.1) Potassium Level 2.9 MEQ/L (3.5-5.1) 3.0 MEQ/L (3.5-5.1) 3.0 MEQ/L (3.5-5.1) Chloride Level 110 MEQ/L (98-107) 109 MEQ/L (98-107) Red Blood Count 2.19 MIL/MM3 (4.50-5.90) 2.51 MIL/MM3 (4.50-5.90) Hemoglobin 8.4 GM/DL (13.0-17.0) 9.5 GM/DL (13.0-17.0) Hematocrit 24.1 % (39.0-51.0) 27.5 % (39.0-51.0) Mean Corpuscular Volume 109.9 FL (80.0-100.0) 109.5 FL (80.0-100.0) Mean Corpuscular Hemoglobin 38.5 PG (27.0-34.0) 37.9 PG (27.0-34.0) Mean Platelet Volume 6.4 FL (7.0-11.0) 6.7 FL (7.0-11.0) Total Iron Binding Capacity 113 MCG/DL (250-450) Percent Iron Saturation 77.6 % (20-50) Ferritin 653 NG/ML (26-388) Vitamin B12 Level GREATER THAN 2000 PG/ML White Blood Count 3.6 TH/MM3 (4.0-11.0) Neutrophils (%) (Auto) 75.3 % (16.0-70.0) Monocytes (%) (Auto) 14.0 % (0.0-8.0) Lymphocytes # (Auto) 0.4 TH/MM3 (1.0-4.8) Blood Urea Nitrogen 5 MG/DL (7-18) Total Protein 4.8 GM/DL (6.4-8.2) Albumin 2.0 GM/DL (3.4-5.0) Alkaline Phosphatase 33 U/L (45-117) Carbon Dioxide Level 32.1 MEQ/L (21.0-32.0) Anion Gap 4 MEQ/L (5-15) PE at Discharge GENERAL: Chronically ill appearing male CARDIOVASCULAR: Normal rate and regular rhythm without murmurs, gallops, or rubs. RESPIRATORY: Good respiratory efforts. Breath sounds equal and clear to auscultation bilaterally. GASTROINTESTINAL: Abdomen soft, non-tender, non-distended. Hypoactive bowel sounds. MUSCULOSKELETAL: Extremities without cyanosis, or edema. NEURO: Alert & Oriented x4 to person, place, time, situation. Moves all ext x4 PSYCH: Calm Pt Condition on Discharge: Good Discharge Disposition: Discharge Home Discharge Instructions DIET: Follow Instructions for: As Tolerated, No Restrictions Activities you can perform: Regular-No Restrictions Renetta Bhatia MD Jan 16, 2018 17:55
== END 2018-01-16 12:52 | disposition home or self-care (01) | DRG 389 ==
LOC: NEPC 11:43 → NEDA 19:29 → N07A 21:43 → HCIN 01-12 14:10
PROVIDERS: ADMIT Family Medicine; ATTEND Family Medicine
DX: K56.600 Partial intestinal obstruction, unspecified as to cause (principal); C15.9 Malignant neoplasm of esophagus, unspecified; C78.00 Secondary malignant neoplasm of unspecified lung; C78.7 Secondary malignant neoplasm of liver and intrahepatic bile duct; J44.9 Chronic obstructive pulmonary disease, unspecified; E87.8 Other disorders of electrolyte and fluid balance, not elsewhere classified; D64.9 Anemia, unspecified; I10 Essential (primary) hypertension; E87.1 Hypo-osmolality and hyponatremia; Z68.1 Body mass index [BMI] 19.9 or less, adult; K52.89 Other specified noninfective gastroenteritis and colitis; R63.4 Abnormal weight loss; E87.6 Hypokalemia; Z79.899 Other long term (current) drug therapy; D72.819 Decreased white blood cell count, unspecified; F41.9 Anxiety disorder, unspecified; F12.90 Cannabis use, unspecified, uncomplicated; F17.210 Nicotine dependence, cigarettes, uncomplicated; M06.9 Rheumatoid arthritis, unspecified; D75.89 Other specified diseases of blood and blood-forming organs; Z90.49 Acquired absence of other specified parts of digestive tract; Z85.01 Personal history of malignant neoplasm of esophagus; Z92.3 Personal history of irradiation
CPT/HCPCS: 36591; 70553; 71045; 74019; 74177; 74250; 80048; 80053; 81001; 82550; 82607; 82728; 83540; 83550; 83690; 83735; 85007; 85025; 85027; 85610; 85652; 85730; 87328; 87329; 87506; 96361; 96365; 96366; 96372; 96374; 96375; A9579; J1170; J1626; J2060; J2270; J2354; J2405; J2543; J2550; J2920; J3480; J7030; J7060; J7512; Q9963; Q9967